=== PATIENT | male | born 1950 | race Caucasian/White ===

== ENCOUNTER 2016-07-26 00:01 | Outpatient (RCR) ==
[2016-06-23 13:09] VITALS: BMI 26.9
== END 2016-08-25 ==
LOC: CAR.REHAB 00:01
PROVIDERS: ATTEND Internal Medicine
DX: I25.10 Atherosclerotic heart disease of native coronary artery without angina pectoris (principal); I10 Essential (primary) hypertension; Z95.5 Presence of coronary angioplasty implant and graft

== ENCOUNTER 2016-08-26 06:37 | Outpatient (RCR) ==
[2016-06-23 13:09] VITALS: BMI 26.9
== END 2016-09-09 15:44 | disposition home or self-care (01) ==
LOC: CAR.REHAB 06:37
PROVIDERS: ATTEND Internal Medicine
DX: I25.10 Atherosclerotic heart disease of native coronary artery without angina pectoris (principal); Z95.5 Presence of coronary angioplasty implant and graft

== ENCOUNTER 2017-06-29 12:40 | Outpatient (CLI) ==
[2016-06-23 13:09] VITALS: BMI 26.9
[2017-06-29 13:37] LABS: BASOPHILS # (AUTO) 0.1 K/uL (0-0.2); BASOPHILS % (AUTO) 0.6 % (0.0-3.0); EOSINOPHILS # (AUTO) 0.1 K/ul (0.0-0.7); EOSINOPHILS % (AUTO) 0.9 % (0.0-7.0); HEMATOCRIT 47.7 % (42.0-52.0); HEMOGLOBIN 17.5 g/dl (14.0-18.0); LYMPHOCYTES # (AUTO) 1.1 K/uL (0.60-3.4); LYMPHOCYTES % (AUTO) 10.1 (10.0-50.0); MEAN CORPUSCULAR HEMOGLOBIN 36.2 pg (27.0-31.0); MEAN CORPUSCULAR HGB CONC 36.7 (31.8-35.4); MEAN CORPUSCULAR VOLUME 98.6 fl (80.0-94.0); MONOCYTES # (AUTO) 0.9 K/uL (0.4-2.0); MONOCYTES % (AUTO) 8.5 (0-10); NEUTROPHILS # (AUTO) 8.5 K/ul (2.0-6.9); NEUTROPHILS % (AUTO) 78.9; PLATELET COUNT 220 10^3/uL (140-440); RED BLOOD COUNT 4.84 10^6/ul (4.70-6.10); WHITE BLOOD COUNT 10.76 K/ul (4.2-10.2)
[2017-06-29 13:38] LABS: BILIRUBIN,URINE Negative (NEGATIVE); KETONES,URINE Negative (NEGATIVE); LEUKOCYTE ESTERASE ,URINE Negative (NEGATIVE); NITRITE,URINE Negative (NEGATIVE); PH,URINE 6.5 (5-9); PROTEIN,URINE Trace (NEGATIVE); URINE, BLOOD Trace-lysed (NEGATIVE)
[2017-06-29 13:40] LABS: ADD URINE MICROSCOPIC YES
[2017-06-29 14:56] LABS: ANION GAP 16.1; BUN/CREATININE RATIO 10.6; CALCIUM 9.8 mg/dL (8.2-10.2); CREATININE 0.66 mg/dL (0.60-1.10); POTASSIUM 4.1 mmol/L (3.5-5.1)
== END 2017-06-29 12:41 | disposition home or self-care (01) ==
LOC: LAB 12:40
PROVIDERS: ATTEND Internal Medicine
DX: I25.10 Atherosclerotic heart disease of native coronary artery without angina pectoris (principal); C61 Malignant neoplasm of prostate; E88.81 Metabolic syndrome and other insulin resistance
CPT/HCPCS: 36415; 80048; 81001; 85025; 86850; 86900

== ENCOUNTER 2017-12-30 06:40 | Outpatient (CLI) ==
[2016-06-23 13:09] VITALS: BMI 26.9
--- NOTE | 2017-12-30 10:32 | ECHO2D ---
Date of Exam: 12/30/17 Ordering Physician: DR. NICKY SAALZAR Room #: OP Reason for Echo: CAD WITH STENT, HTN, SOB M-Mode Normal Adult Results LV Dimensions Normal Adult Results AoV Opening excursions >1.6 >1.6 LVEDD-base- 3.5-5.8 4.9 Ao root dimensions 2.0-3.7 3.4 LVESD-base- 3.1-4.6 L. Atrium dimensions 1.9-3.8 4.7 Post. Wall thickness 0.8-1.1 1.1 IV septum (thickness) 0.7-1.2 1.1 Post. Wall excursion 0.72-1.3 NORMAL Septal motion 0.6 Systolic motion R. Ventricular cavity 1.5-2.0 NORMAL LVEF 60% 48% Paradoxical septal wall motion NORMAL 2-D : HYPOKINETIC SEPTUM--CALCIFIC AORTIC VALVES, OTHER VALVES NORMAL, NO EFFUSION, NO THROMBUS, NORMAL LEFT VENTRICLE SIZE, ENLARGED LEFT ATRIAL SIZE M-MODE: MV: NORMAL AV: CALCIFIC AORTIC VALVES TV: NORMAL PV: CHAMBER SIZE: ENLARGED LEFT ATRIAL CAVITY WALL MOTION: HYPOKINETIC SEPTUM PERICARDIUM: NORMAL INTERPRETATION: 1. HYPOKINETIC SEPTUM (MILD) LEFT VENTRICULAR EJECTION FRACTION 48% 2. CALCIFIC AORTIC VALVES 3. ENLARGED LEFT ATRIAL CAVITY MTDD
--- NOTE | 2017-12-30 11:01 | STRESSECHO ---
Date of Test: 12/30/17 Ordering Physician: DR. 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 Height: 68" Weight: 179" Current Medications: COZAAR, ALLOPURINOL, LEVOTHYROXINE, METOPROLOL, NG, SIMVASTATIN, KLONOPIN, CYMBALTA, LEXAPRO, XANAX Physical Findings: S1, S2, NO S3 Resting EKG: SINUS RHYTHM/ POOR R WAVE PROGRESSION Target Heart Rate: 130 /153 S-T SEGMENT STAGE MPH/GRADE HEART RATE BPM BLOOD PRESSURE MMHG RHYTHM +/- ELEVATION DEPRESSION SYMPTOMS,COMMENTS AT REST 70 146/86 SR X NONE 1 1.7/10% 104 140/58 SR X NONE 2 2.5/12% 130 150/70 SR X NONE 3 3.4/14% 4 4.2/16% 5 5.0/18% Immediately After 140 160/80 SR X NONE Minutes Post Exercise 4:00 78 140/80 SR X NO COMMENTS Minutes Post Exercise DURATION OF EXERCISE: 6:40 MAXIMUM HEART RATE REACHED: 140 BPM REASON FOR TERMINATION: FATIGUE 96% OXYGEN SATURATION WITH EXERCISE ON ROOM AIR METS: 9.0 INTERPRETATION: 1. NO EVIDENCE OF ISCHEMIA BY ST-T WAVE 2. NO CHEST PAIN OR DISCOMFORT 3. FEW ISOLATED PVC'S WITH EXERCISE 4. BLOOD PRESSURE RESPONSE: NORMAL MILD HYPOKINETIC SEPTUM WITH IMPROVED CONTRACTILITY WITH EXERCISE MTDD
--- NOTE | 2017-12-30 11:04 | ECHOSTRESS ---
Date of Exam: 12/30/17 Ordering Physician: DR. NICKY SALAZAR Reason for Echo: CAD WITH STENT, SOB, STRESS TEST--NO ISCHEMIA M-Mode Normal Adult Results LV Dimensions Normal Adult Results AoV Opening excursions >1.6 LVEDD-base- 3.5-5.8 Ao root dimensions 2.0-3.7 LVESD-base- 3.1-4.6 L. Atrium dimensions 1.9-3.8 Post. Wall thickness 0.8-1.1 IV septum (thickness) 0.7-1.2 Post. Wall excursion 0.72-1.3 Septal motion Systolic motion R. Ventricular cavity 1.5-2.0 LVEF 60% Paradoxical septal wall motion 2-D: MILDLY HYPOKINETIC SEPTUM AT REST AND WITH IMPROVED LEFT VENTRICULAR CONTRACTILITY WITH EXERCISE M-MODE: MV: AV: TV: PV: CHAMBER SIZE: WALL MOTION: MILDLY HYPOKINETIC SEPTUM AT REST AND WITH IMPROVED LEFT VENTRICULAR CONTRACTILITY WITH EXERCISE PERICARDIUM: INTERPRETATION: 1. MILDLY HYPOKINETIC SEPTUM AT REST AND WITH IMPROVED LEFT VENTRICULAR CONTRACTILITY WITH EXERCISE MTDD
== END 2017-12-30 06:41 | disposition home or self-care (01) ==
LOC: CAR 06:40
PROVIDERS: ATTEND Internal Medicine
DX: I25.10 Atherosclerotic heart disease of native coronary artery without angina pectoris (principal); R06.02 Shortness of breath; I10 Essential (primary) hypertension; Z95.5 Presence of coronary angioplasty implant and graft

== ENCOUNTER 2018-03-22 14:49 | Emergency (ER) ==
[2018-03-22 14:55] VITALS: BP 167/98; TEMP 98.2; BMI 28.0
--- NOTE | 2018-03-22 15:39 | ED.PDOC ---
General ED Provider: Dr. HALEY TURNER Chief Complaint: Neck Pain Non-Injury Stated Complaint: Neck hurts/sharp jabbing pain up posterior lt cervical region into base of skull. Occurs with movement of cervical spine and does not experience pain into Lt Shoulder or upper extremity. Denies Chest Pain or discomfort/Denies SOB Time Seen by Physician: 15:05 Mode of Arrival: Walk-In Information Source: Patient Exam Limitations: No limitations Primary Care Provider: NICKY SALAZAR Referred to ED by: PCP Nursing and Triage Documentation Reviewed and Agree: Yes Does patient meet sepsis criteria?: No System Inflammatory Response Syndrome: Not Applicable Sepsis Protocol: For patient's 13 years and over: Temp is 96.8 and below OR 101 and greater Pulse >90 BPM Resp >20/minute Acutely Altered Mental Status Are patient's symptoms suggestive of a new infection, such as: -Pneumonia -Skin, Soft Tissue -Endocarditis -UTI -Bone, Joint Infection -Implantable Device -Acute Abdominal Infection -Wound Infection -Meningitis -Blood Stream Catheter Infection -Unknown Musculoskeletal Complaint Exam - Neck Pain Complaint/Exam Mechanism of Injury: Reports: No known trauma (None recently) Review of Systems - Review Of Systems Constitutional: Reports: No symptoms Eyes: Reports: No symptoms Ears, Nose, Mouth, Throat: Reports: No symptoms Respiratory: Reports: No symptoms Cardiac: Reports: No symptoms GI: Reports: No symptoms : Reports: No symptoms Musculoskeletal: Reports: No symptoms, Neck pain Skin: Reports: No symptoms Neurological: Reports: No symptoms Endocrine: Reports: No symptoms Hematologic/Lymphatic: Reports: No symptoms All Other Systems: Reviewed and Negative Past Medical History - Past Medical History Endocrine: Reports: DM 2 Cardiovascular: Reports: CAD, Hypertension, CHF Respiratory: Reports: None, Other Hematological: Reports: None Gastrointestinal: Reports: None Genitourinary: Reports: None Neuro/Psych: Reports: None Musculoskeletal: Reports: Arthritis, Joint Pain Cancer: Reports: None - Surgical History General Surgical History: Reports: None - Family History Family History: Reports: None - Social History Smoking Status: Current some day smoker Alcohol Screening: None Physical Exam - Physical Exam Appearance: Well-appearing, No pain distress, Well-nourished Eyes: RAÚL, EOMI, Conjunctiva clear ENT: Ears normal, Nose normal, Oropharynx normal Respiratory: Airway patent, Breath sounds clear, Breath sounds equal, Respirations nonlabored Cardiovascular: RRR, Pulses normal, No rub, No murmur GI/: Soft, Nontender, No masses, Bowel sounds normal, No Organomegaly Musculoskeletal: Normal strength, ROM intact, No edema, No calf tenderness, Limited ROM (cervical tenderness lt occipital cervical region with increase discomfort to lt rotation ) Skin: Warm, Dry, Normal color Neurological: Sensation intact, Motor intact, Reflexes intact, Cranial nerves intact, Alert, Oriented Psychiatric: Affect appropriate, Mood appropriate Interpretation - Radiology Interpretation Radiology Interpretation By: Radiologist (Findings reviewed-advanced degenerative arthritis/foraminal stenosis) Exam Interpreted: CT Scan Physician Notification - Case Discussed Physician Notified: Dr Salazar-Reviewed case Time of Notification: 16:50 (Recommended IM Decadron 4 mg IM/outpatient follow up 1 wk) Critical Care Note - Critical Care Note Total Time (mins): 0 Course - Course Hematology/Chemistry: 03/22/18 15:47 03/22/18 15:47 Orders, Labs, Meds: Lab Review 03/22/18 03/22/18 15:47 15:47 WBC 10.17 RBC 3.93 L Hgb 14.2 Hct 39.0 L MCV 99.2 H MCH 36.1 H MCHC 36.4 H RDW Coeff of Audrey 12.7 Plt Count 187 Immature Gran % (Auto) 0.4 Neut % (Auto) 71.9 Lymph % (Auto) 18.0 Gregory % (Auto) 7.2 Eos % (Auto) 2.1 Baso % (Auto) 0.4 Immature Gran # (Auto) 0.0 Neut # (Auto) 7.3 H Lymph # (Auto) 1.8 Gregory # (Auto) 0.7 Eos # (Auto) 0.2 Baso # (Auto) 0.0 ESR 6 Sodium 131 L Potassium 3.8 Chloride 99 Carbon Dioxide 27 Anion Gap 8.8 BUN 17 Creatinine 0.65 Estimated GFR (MDRD) 123.00 BUN/Creatinine Ratio 26.15 Glucose 122 H Calcium 9.4 Total Bilirubin 0.7 AST 36 ALT 35 Alkaline Phosphatase 72 Total Creatine Kinase 52 Troponin I < 0.0100 Total Protein 6.3 Albumin 3.6 Globulin 2.7 Albumin/Globulin Ratio 1.33 Orders Category Date Time Status EKG-(ED ONLY) Stat CARDIO 03/22/18 15:37 Completed CBC W/ AUTO DIFF Stat LAB 03/22/18 15:47 Completed CMP [COMPREHENSIVE METABOLIC PANEL] Stat LAB 03/22/18 15:47 Completed CPK [CREATINE KINASE] Stat LAB 03/22/18 15:47 Completed ESR Stat LAB 03/22/18 15:47 Completed TROPONIN I Stat LAB 03/22/18 15:47 Completed Dexamethasone 4 mg/ml Inj [Decadron 4 mg/ml Sdv] MEDS 03/22/18 17:01 Stat 4 mg IM ONCE STA CT CERVICAL SPINE W/O CONTRAST Stat RADS 03/22/18 15:38 Completed Medications Discontinued Medications Generic Name Dose Route Start Last Admin Trade Name [place] PRN Reason Stop Dose Admin Dexamethasone Sodium Phosphate 4 mg 03/22/18 17:01 Decadron 4 Mg/Ml Sdv IM 03/22/18 17:02 ONCE STA Vital Signs: Temp Pulse Resp BP Pulse Ox 03/22/18 14:51 98.2 F 87 18 167/98 H 98 Departure - Departure Time of Disposition: 17:00 Disposition: HOME SELF-CARE Discharge Problem: Cervicalgia of [id number]-lguswbs-trzmo region, Degenerative arthritis of cervical spine, Hyponatremia Instructions: Neck Pain (ED), Cervical Spinal Stenosis (ED), Cervical Strain ( DC), Hyponatremia (ED), Exercise Safety (ED) Condition: Good Pt referred to PMD for follow-up: Yes IPMP verified?: No Additional Instructions: May take Ibuprofen 200 mg 1-3 tablets daily for relief of pain Ice pack to area of discomfort Follow up pcp Allergies/Adverse Reactions: Allergies No Known Allergies Allergy (Verified 03/22/18 14:55) Home Medications: Ambulatory Orders Allopurinol 400 mg PO DAILY 06/23/16 Aspirin [Aspirin EC] 81 mg PO DAILYWM 06/23/16 Levothyroxine Sodium [Synthroid] 50 mcg PO DAILY 06/23/16 Nitroglycerin 1 tab SL PRN PRN 06/23/16 Simvastatin 40 mg PO DAILY 06/23/16 Losartan Potassium [Cozaar] 50 mg PO DAILY #30 tablet 06/26/16 Disposition Discussed With: Patient
--- NOTE | 2018-03-22 16:41 | CT ---
EXAM: Cervical spine CT without contrast TECHNIQUE: Helical axial CT of the cervical spine was performed without contrast with coronal and sa gittal reconstructions. COMPARISON: None HISTORY: Neck pain FINDINGS: There is no acute fracture, compression or subluxation. Alignment is anatomic. There is no acute soft tissue abnormality. There is chronic fragmentation and sclerosis seen involving the later al mass of C2 on the left along with advanced degenerative change of the joint space between C1 and C 2 on the left as well. This is probably on the basis of old trauma. There is advanced calcific ather osclerosis. C1-2: Old trauma involving the left aspect of C2 as described above. The dens is intact as well as th e anterior and posterior arches of C1. C2-3: There is a grade 1 degenerative anterolisthesis with facet and ligamentous and uncovertebral hy pertrophy. Canal stenosis: None C3 neural foraminal stenosis: Mild right, moderate left C3-4: There is disc space narrowing and a broad-based calcified disc osteophyte complex with advanced facet and ligamentous and uncovertebral hypertrophy. Canal stenosis: Mild C4 neural foraminal stenosis: Severe right, moderate left C4-5: There is extremely advanced disc space narrowing with endplate degenerative changes and anterio r osteophytosis with a broad-based calcified disc osteophyte complex with advanced facet and ligament ous and uncovertebral hypertrophy. Canal stenosis: Moderate C5 neural foraminal stenosis: Moderate right, severe left C5-6: There is advanced disc space narrowing with some anterior osteophytosis and a broad-based calci fied disc osteophyte complex with facet and ligamentous and uncovertebral hypertrophy. Canal stenosis: Mild C6 neural foraminal stenosis: Moderate bilateral C6-7: There is very advanced disc space narrowing and advanced endplate degenerative changes with ant erior osteophytosis and a broad-based calcified disc osteophyte complex with facet and ligamentous an d uncovertebral hypertrophy. Canal stenosis: Severe C7 neural foraminal stenosis: Moderate right, severe left C7-T1: There is uncovertebral and facet hypertrophy and some disc space narrowing Canal stenosis: None C8 neural foraminal stenosis: None IMPRESSION: 1. Chronic fragmentation and hypoplasia and sclerosis seen involving the lateral mass of C2 on the le ft probably due to old trauma. 2. Extremely advanced multilevel degenerative changes as detailed above probably most severe at C6-7 where there is resulting severe spinal stenosis and severe left C7 foraminal stenosis. 3. Other degenerative changes as detailed above. No acute abnormality is observed in the cervical s pine.
[2018-03-22] MEDS ORDERED: DECADRON 4 MG/ML SDV IM STA (17:01)
== END 2018-03-22 17:13 | disposition home or self-care (01) ==
LOC: ED 14:49
DX: M54.2 Cervicalgia (principal); M47.812 Spondylosis without myelopathy or radiculopathy, cervical region; E87.1 Hypo-osmolality and hyponatremia; E11.9 Type 2 diabetes mellitus without complications; I10 Essential (primary) hypertension; I25.10 Atherosclerotic heart disease of native coronary artery without angina pectoris; Z79.899 Other long term (current) drug therapy; F17.210 Nicotine dependence, cigarettes, uncomplicated
CPT/HCPCS: 36415; 80053; 82550; 84484; 85025; 85651; 93005; 93010; 96372; 99283

== ENCOUNTER 2018-03-30 07:49 | Outpatient (CLI) ==
--- NOTE | 2018-03-30 12:19 | MRI ---
EXAM: MRI cervical spine without IV contrast. DATE: March 2018. HISTORY: Neck pain. Cervical spinal stenosis. TECHNIQUE: Sagittal and axial T1W and T2W sequences of the cervical spine along with sagittal IR and coronal T2W sequences were obtained using 1.2 Queenie magnet. No IV contrast. COMPARISON: CT C-spine 22 March 2018. FINDINGS: Mild leftward curvature of the cervical spine is observed. A 2.2 mm anterior subluxation of C7 relative to C6 and T1 is observed. A 1 mm anterior subluxation of T3 relative to T2 is also no karel. No other subluxation, acute fracture, distinct malignancy, or jumped facet is apparent. Minor anterior wedge configuration of the C-spine and C6 vertebra is chronic. Prominent osteophytes are ob served at C4-5 and C6-7, with smaller osteophytes at C3-4 and C5-6. Mild C3-4, marked C4-5, moderate C5-6, marked C6-7, mild C7-T1, and marked T2-3 disc space narrowing is detected. T2W/IR bright, T1W heterogeneously bright signal in the odontoid appears benign. Extensive modic type one degenerative endplate changes are observed at C4-5. Prominent geode with heterogeneous signal is observed in the C7 superior endplate. Cervical spinal cord is flattened at multiple levels. No syrinx, cord edema, myelomalacia, or neoplasm is identified. Visible brainstem is unremarkable. There is no Chiari 1 malformation. No acute sinusitis is detecte d. No mastoid disease detected. No thyroid, submandibular, or parotid gland neoplasm is demonstrate d. Trachea, larynx, and epiglottis are normal. No suspicious neck mass, cervical lymphadenopathy, a pical lung mass, pneumonia, or pleural effusion is demonstrated. Segmental analysis: C1-2: Marrow edema and posterior erosive changes are present in the odontoid. Soft tissue thickenin g (6.5 mm) posterior to the odontoid is likely related to C1-2 arthritis, and causes borderline centr al canal stenosis. C3-4: Small posterior disc/osteophyte complex (1.6 mm AP) does not contact the cord. Canal is 10.6 mm AP. Mild right and moderate left foraminal stenoses are due to uncinate hypertrophy, moderate rig ht facet arthropathy, and mild left facet arthropathy. C4-5: Broad posterior disc/osteophyte complex (2.8 mm AP) flattens the cord anteriorly. Ligamentum flavum hypertrophy is present. Canal is 7 mm AP. Severe right and moderate/marked left foraminal st enoses due to uncinate hypertrophy, moderate/marked right facet arthropathy, and moderate left facet arthropathy. There are tiny bilateral facet effusions. Erosive changes are present in the right fac et. C5-6: Broad posterior disc/osteophyte complex (2.6 mm AP) touches the cord anteriorly. There is mod erate ligamentum flavum hypertrophy. Canal is 9 mm AP. Mild bilateral foraminal stenoses due to unc inate hypertrophy and minor facet arthropathy. C6-7: Minor anterior subluxation of C7 and broad posterior disc/osteophyte complex (3.1 mm AP) cause anterior cord flattening. There is moderate ligamentum flavum hypertrophy. Canal is 7.8 mm AP. Ma rked bilateral foraminal stenoses due to uncinate hypertrophy and mild facet arthropathy. C7-T1: Minor anterior subluxation of C7 and broad posterior disc/osteophyte complex (2.2 mm AP) do n ot cause cord compression. Canal is 9.4 mm AP. Mild right foraminal stenosis is due to uncinate hyp ertrophy. T1-2: Sagittal images reveal small posterior disc/osteophyte complex without cord compression. Diana l is 9.9 mm AP. Minor left foraminal narrowing is due to facet arthropathy. T2-3: Sagittal images reveal broad posterior disc bulge (2.6 mm AP) flattening the cord anteriorly. There is mild ligamentum flavum hypertrophy. Canal is 8.2 mm AP. Mild/moderate right and mild left foraminal stenoses due to uncinate hypertrophy and facet arthropathy. IMPRESSIONS: 1. C-spine moderate spondylosis, mild levoscoliosis, multilevel facet arthropathy, minor subluxation s, and multilevel DDD as described. Consider erosive osteoarthritis and C1-2. 2. Multilevel central canal stenoses (C1-2: Marked. C4-5: Moderate/marked. C5-6: Mild. C6-7: Mode rate. C7-T1: Mild. T1-2: Mild. T2-3: Mild). 3. Multilevel cervical cord flattening. No syrinx or myelomalacia. 4. Multilevel cervical foraminal stenoses (omer. right C4-5, bilateral C5-6, bilateral C6-7). 5. Mild adenoid hypertrophy appears benign.
== END 2018-03-30 07:50 | disposition home or self-care (01) ==
LOC: RAD 07:49
PROVIDERS: ATTEND Internal Medicine
DX: M54.2 Cervicalgia (principal); M48.02 Spinal stenosis, cervical region

== ENCOUNTER 2018-04-27 12:31 | Outpatient (CLI) ==
--- NOTE | 2018-04-27 15:38 | US ---
EXAM: Bilateral carotid artery Doppler. History: Dizziness. Technique: Multiple sonographic images through the bilateral internal carotid arteries were obtained . Color duplex Doppler was used to interrogate vascular flow. Findings: The right ICA peak systolic velocity is within normal limits measuring 0.9 meters per second. The ri ght ICA/cca PSV ratio is normal at 1.0. The right vertebral artery is patent and demonstrates antegr damaso flow. Galloway scale images demonstrate mild to moderate plaque buildup within the right internal ca rotid artery. The left ICA peak systolic velocity is within normal limits measuring 0.9 meters per second. The lef t ICA/cca PSV ratio is normal at 0.90. The left vertebral artery is patent and demonstrates antegrad e flow. Galloway scale images demonstrate moderate shadowing plaque buildup within the left internal car otid artery which does limit evaluation. Impression: 1. The velocities and ratios indicate no significant hemodynamic stenosis of the bilateral internal carotid arteries. 2. Moderate plaque buildup within the left internal carotid artery left carotid bulb does limit eval uation. Consider correlation with CTA of the neck for clarification.
== END 2018-04-27 12:32 | disposition home or self-care (01) ==
LOC: RAD 12:31
PROVIDERS: ATTEND Internal Medicine
DX: R26.89 Other abnormalities of gait and mobility (principal); R42 Dizziness and giddiness

== ENCOUNTER 2018-05-05 07:48 | Outpatient (CLI) ==
--- NOTE | 2018-05-05 09:58 | CT ---
EXAM: CTA of the neck with and without contrast History: Abnormal carotid ultrasound Comparison: Carotid Doppler 04/27/2018 Technique: Multiplanar CT images through the soft tissue neck were obtained with and without the admi nistration of IV contrast. MIP images and 3-D reconstructions were also provided. Findings: The visualized upper lungs are free of consolidation. No acute osseous abnormalities. Mo derate to severe degenerative disc disease within the cervical spine. Epiglottis is not thickened. The visualized paranasal sinuses and mastoid air cells are clear in general. Surrounding soft tissue s demonstrate no acute findings. The bilateral common carotid arteries are patent without significant disease. The bilateral vertebra l arteries are patent without significant disease. There is mild to moderate calcific plaque buildup at the bifurcation of the left internal carotid artery with about 40% narrowing of the proximal left internal carotid artery. On the right there is about 50% narrowing of the proximal right internal c arotid artery with poststenotic dilatation but no significant calcific plaque buildup.. Impression: 1. 40% narrowing of the proximal left internal carotid artery 2. 50% narrowing of the proximal right internal carotid artery with poststenotic dilatation. 3. Moderate to severe degenerative disc disease within the cervical spine.
== END 2018-05-05 07:49 | disposition home or self-care (01) ==
LOC: RAD 07:48
PROVIDERS: ATTEND Internal Medicine
DX: R93.1 Abnormal findings on diagnostic imaging of heart and coronary circulation (principal)

== ENCOUNTER 2019-12-26 12:46 | Inpatient (IN) ==
[2019-12-26 13:32] VITALS: BMI 26.8
[2019-12-29 05:39] VITALS: BP 163/84; TEMP 97.9
== END 2019-12-29 11:25 | disposition home or self-care (01) | DRG 641 ==
LOC: MEDSURG A 12:46
PROVIDERS: ADMIT Internal Medicine; ATTEND Internal Medicine

== ENCOUNTER 2020-06-28 09:03 | Inpatient (IN) ==
[2020-06-28] MEDS ORDERED: SODIUM CHLORIDE 500 ML IV STA (09:23)
[2020-06-28] MEDS ORDERED: TYLENOL PO STA (09:23)
[2020-06-28] MEDS ORDERED: SODIUM CHLORIDE 1,000 ML IV STA (09:23)
--- NOTE | 2020-06-28 09:54 | ED.PDOC ---
General ED Provider: Dr. KEV GRADY MD Chief Complaint: Fall Stated Complaint: mild posterior neck pain x this am. pt fell and hit the head and neck. was on the floor x 10hrs. denied LOC Time Seen by Physician: 09:13 Mode of Arrival: Ambulance Information Source: Patient Primary Care Provider: NICKY SALAZAR Nursing and Triage Documentation Reviewed and Agree: Yes Does patient meet sepsis criteria?: No System Inflammatory Response Syndrome: Not Applicable Sepsis Protocol: For patient's 13 years and over: Temp is 96.8 and below OR 101 and greater Pulse >90 BPM Resp >20/minute Acutely Altered Mental Status Are patient's symptoms suggestive of a new infection, such as: -Pneumonia -Skin, Soft Tissue -Endocarditis -UTI -Bone, Joint Infection -Implantable Device -Acute Abdominal Infection -Wound Infection -Meningitis -Blood Stream Catheter Infection -Unknown Trauma/Injury Complaint Exam Trauma Complaint/Exam Location of Pain or Injury: Reports Head and Neck Mechanism of Injury: Reports Fall Onset/Duration: last PM Timing of Treatment: Delayed Initial Severity: Mild Current Severity: Mild Character: Reports Dull and Aching Aggravating: Reports Movement Alleviating: Reports Rest Associated Signs and Symptoms: Denies LOC, Confusion, Memory loss, Lethargy, Vomiting, Bleeding, Bruising, Swelling, Extremity disuse, Painful respiration, Hoarseness, Dysphagia, Hemoptysis and Significant blood loss Nexus Low Risk Criteria: No evidence of intoxicat., No Altered LOC, No focal neuro deficit and No distracting injuries Glascow Coma Scale (see protocol): 15 Compartment Syndrome Risk Factors: Absent Pain Trauma Findings: Present Neck tenderness Skin Findings: Present Normal findings Differential Diagnoses: Abrasion and Contusions Review of Systems Review Of Systems Constitutional: Reports No symptoms Eyes: Reports Foreign body sensation Ears, Nose, Mouth, Throat: Reports No symptoms Respiratory: Reports No symptoms Cardiac: Reports No symptoms GI: Reports No symptoms : Reports No symptoms Endocrine: Reports No symptoms Hematologic/Lymphatic: Reports No symptoms All Other Systems: Reviewed and Negative [facility] Medical History Hypertension Myocardial infarction Family History Mother Congestive heart failure FATHER CVA (cerebral vascular accident) SISTER Hypertension Social History Smoking and tobacco status: Current some day smoker History of recent travel: Yes (in the states) Surgical History History of hernia surgery History of left knee replacement History of prostatectomy History of quadruple bypass Physical Exam Physical Exam Appearance: Reports Well-appearing, No pain distress and Obese Pain Distress: None Eyes: Reports RAÚL, EOMI and Conjunctiva clear ENT: Reports Ears normal, Nose normal and Oropharynx normal Neck: Supple Respiratory: Reports Airway patent and Breath sounds clear Cardiovascular: Reports RRR, Pulses normal, No rub and No murmur GI/: Reports Soft, Nontender, No masses, Bowel sounds normal and No Organomegaly Musculoskeletal: Reports Normal strength, ROM intact, No edema and No calf tenderness Skin: Reports Warm, Dry and Normal color Neurological: Reports Sensation intact, Motor intact, Reflexes intact, Cranial nerves intact, Alert and Oriented Psychiatric: Reports Affect appropriate and Mood appropriate Interpretation EKG Interpretation Time of EKG #1: 09:33 Rate: Normal Rhythm: Sinus Ectopy: PACs [place]: NL ST Segment: Normal Interpretation: 95/min. sinus with PACs. no acute ST or T wave changes. Re-Evaluation Re-Evaluation Time of Re-Evaluation: 10:22 Status: Improved Vital Signs Stable: Yes Pain Level: 1 Appearance: NAD Lungs: Clear Skin: Warm and Dry Neuro: Alert and Oriented X3 CV: RRR Critical Care Note Critical Care Note Total Critical Care Time (mins): 0 Course Course Hematology/Chemistry: 06/28/20 09:45 06/28/20 09:45 Orders, Labs, Meds: Lab Review 06/28/20 06/28/20 06/28/20 09:45 09:45 09:45 WBC 31.50 H RBC 3.90 L Hgb 14.1 Hct 38.1 L MCV 97.7 H MCH 36.2 H MCHC 37.0 H RDW Coeff of Audrey 13.5 Plt Count 165 Immature Gran % (Auto) 1.5 Neut % (Auto) 92.7 H Lymph % (Auto) 2.4 L [place] % (Auto) 3.3 Eos % (Auto) 0.0 Baso % (Auto) 0.1 Neut # (Auto) 29.2 H Lymph # (Auto) 0.8 [place] # (Auto) 1.1 Eos # (Auto) 0.0 Baso # (Auto) 0.0 Immature Gran # (Auto) 0.2 Puncture Site O2 Saturation ABG pH ABG pCO2 ABG pO2 ABG HCO3 ABG Total CO2 ABG Base Excess Pranav Test FiO2 % Sodium 118.9 L* Potassium 4.30 Chloride 81.5 L Carbon Dioxide 28.2 Anion Gap 13.50 BUN 12.0 Creatinine 0.67 Estimated GFR (MDRD) 117.00 BUN/Creatinine Ratio 17.91 Glucose 93.0 Calcium 8.85 Ferritin Total Bilirubin 0.83 AST 59.6 H ALT 41.3 Alkaline Phosphatase 121.3 H Total Creatine Kinase 393.9 H CK-MB (CK-2) 6.460 H* CK-MB (CK-2) % 1.6400 Troponin I < 0.012 Total Protein 6.63 Albumin 3.63 Globulin 3.00 Albumin/Globulin Ratio 1.21 Procalcitonin 6.76 Adenovirus (PCR) B. pertussis DNA (PCR) B.parapertussis DNA PCR C. pneumoniae DNA (PCR) Coronavirus OC43 (PCR) Coronavirus HKU1 (PCR) Coronavirus 229E (PCR) Coronavirus NL63 (PCR) Human Metapneumovir PCR Influenza Type A (PCR) Influenza B (RT-PCR) M. pneumoniae (PCR) Parainfluenza 1 (PCR) Parainfluenza 2 (PCR) Parainfluenza 3 (PCR) Parainfluenza 4 (PCR) RSV (PCR) Entero/Rhino (PCR) SARS-CoV-2 (PCR) 06/28/20 06/28/20 06/28/20 09:45 11:15 11:45 WBC RBC Hgb Hct MCV MCH MCHC RDW Coeff of Audrey Plt Count Immature Gran % (Auto) Neut % (Auto) Lymph % (Auto) [place] % (Auto) Eos % (Auto) Baso % (Auto) Neut # (Auto) Lymph # (Auto) [place] # (Auto) Eos # (Auto) Baso # (Auto) Immature Gran # (Auto) Puncture Site R brachial O2 Saturation 97.3 ABG pH 7.57 H* ABG pCO2 25.0 L ABG pO2 80.0 L ABG HCO3 22.9 ABG Total CO2 23.7 ABG Base Excess 0.9 Pranav Test + FiO2 % 21.0 Sodium Potassium Chloride Carbon Dioxide Anion Gap BUN Creatinine Estimated GFR (MDRD) BUN/Creatinine Ratio Glucose Calcium Ferritin 548.00 H Total Bilirubin AST ALT Alkaline Phosphatase Total Creatine Kinase CK-MB (CK-2) CK-MB (CK-2) % Troponin I Total Protein Albumin Globulin Albumin/Globulin Ratio Procalcitonin Adenovirus (PCR) Not detected B. pertussis DNA (PCR) Not detected B.parapertussis DNA PCR Not detected C. pneumoniae DNA (PCR) Not detected Coronavirus OC43 (PCR) Not detected Coronavirus HKU1 (PCR) Not detected Coronavirus 229E (PCR) Not detected Coronavirus NL63 (PCR) Not detected Human Metapneumovir PCR Not detected Influenza Type A (PCR) Not detected Influenza B (RT-PCR) Not detected M. pneumoniae (PCR) Not detected Parainfluenza 1 (PCR) Not detected Parainfluenza 2 (PCR) Not detected Parainfluenza 3 (PCR) Not detected Parainfluenza 4 (PCR) Not detected RSV (PCR) Not detected Entero/Rhino (PCR) Not detected SARS-CoV-2 (PCR) Not detected 06/28/20 14:45 WBC RBC Hgb Hct MCV MCH MCHC RDW Coeff of Audrey Plt Count Immature Gran % (Auto) Neut % (Auto) Lymph % (Auto) [place] % (Auto) Eos % (Auto) Baso % (Auto) Neut # (Auto) Lymph # (Auto) [place] # (Auto) Eos # (Auto) Baso # (Auto) Immature Gran # (Auto) Puncture Site O2 Saturation ABG pH ABG pCO2 ABG pO2 ABG HCO3 ABG Total CO2 ABG Base Excess Pranav Test FiO2 % Sodium Potassium Chloride Carbon Dioxide Anion Gap BUN Creatinine Estimated GFR (MDRD) BUN/Creatinine Ratio Glucose Calcium Ferritin Total Bilirubin AST ALT Alkaline Phosphatase Total Creatine Kinase CK-MB (CK-2) CK-MB (CK-2) % Troponin I Total Protein Albumin Globulin Albumin/Globulin Ratio Procalcitonin Adenovirus (PCR) Not detected B. pertussis DNA (PCR) Not detected B.parapertussis DNA PCR Not detected C. pneumoniae DNA (PCR) Not detected Coronavirus OC43 (PCR) Not detected Coronavirus HKU1 (PCR) Not detected Coronavirus 229E (PCR) Not detected Coronavirus NL63 (PCR) Not detected Human Metapneumovir PCR Not detected Influenza Type A (PCR) Not detected Influenza B (RT-PCR) Not detected M. pneumoniae (PCR) Not detected Parainfluenza 1 (PCR) Not detected Parainfluenza 2 (PCR) Not detected Parainfluenza 3 (PCR) Not detected Parainfluenza 4 (PCR) Not detected RSV (PCR) Not detected Entero/Rhino (PCR) Not detected SARS-CoV-2 (PCR) Not detected Orders Category Date Time Status ABG DRAW REQUEST Stat CARDIO 06/28/20 11:18 Completed EKG-(ED ONLY) Stat CARDIO 06/28/20 09:23 Completed METERED DOSE INHALATION Routine CARDIO 06/28/20 12:59 Completed ED IV/MEDIPORT/POWERPORT .ONCE EMERGENCY 06/28/20 09:23 Active ABG Stat LAB 06/28/20 11:15 Completed BLOOD CULTURE (ED ONLY) Stat LAB 06/28/20 11:45 Received C-REACTIVE PROTEIN Stat LAB 06/28/20 09:45 Received CBC W/ AUTO DIFF Stat LAB 06/28/20 09:45 Completed COMPREHENSIVE METABOLIC PANEL Stat LAB 06/28/20 09:45 Completed CREATINE KINASE Stat LAB 06/28/20 09:45 Completed FERRITIN Urgent LAB 06/28/20 09:45 Completed Lactic Acid Dehydrogenase Stat LAB 06/28/20 09:45 Received PROCALCITONIN Urgent LAB 06/28/20 09:45 Completed RESPIRATORY PANEL 2.1 (PCR) Stat LAB 06/28/20 11:45 Completed RESPIRATORY PANEL 2.1 (PCR) Stat LAB 06/28/20 14:45 Completed TROPONIN I Stat LAB 06/28/20 09:45 Completed URINALYSIS C & S IF INDICATED Stat LAB 06/28/20 09:23 Uncollected 0.9 % Sodium Chloride [Saline Flush] MEDS 06/28/20 09:23 Active 1 syr IVF PRN PRN Acetaminophen [Tylenol] MEDS 06/28/20 09:23 Discontinued 650 mg PO ONCE STA Albuterol Inhaler(with Spacer) [Ventolin Hfa (Per Puff- MEDS 06/28/20 12:59 Discontinued with Spacer)] 2 puff IH ONCE STA Alprazolam [Xanax] MEDS 06/28/20 15:51 Discontinued 0.5 mg PO ONCE STA Azithromycin [Zithromax] MEDS 06/28/20 12:57 Discontinued 500 mg PO ONCE STA Ceftriaxone/D5w 1 gm Premix [Rocephin 1 gm/50 ml D5w] MEDS 06/28/20 11:15 Discontinued 1 gm in 50 ml IV ONCE Ipratropium Inhaler(Spacer) [Atrovent Hfa Inhaler (Per MEDS 06/28/20 12:59 Discontinued Puff-with Spacer)] 2 puff IH ONCE STA Methylprednisolone Sod Succ/Pf [Solu-Medrol 125 mg] MEDS 06/28/20 11:15 Dis continued 125 mg IVP ONCE STA Sodium Chloride 0.9% [Sodium Chloride] 1,000 ml MEDS 06/28/20 09:23 Active IV 125 mls/hr Sodium Chloride 0.9% [Sodium Chloride] 500 ml MEDS 06/28/20 09:23 Discontinued IV BOLUS Vitamin B-1 Inj [Thiamine] MEDS 06/28/20 15:50 Discontinued 100 mg IM ONCE STA CHEST, 1V AP ONLY Stat RADS 06/28/20 11:[address] CERVICAL SPINE W/O CONTRAST Stat RADS 06/28/20 09:[address] CHEST W/O CONTRAST Stat RADS 06/28/20 11:[address] HEAD W/O CONTRAST Stat RADS 06/28/20 09:[address] PELVIS W/O CONTRAST Stat RADS 06/28/20 09:23 Completed Medications Generic Name Dose Route Start Last Admin Trade Name Freq PRN Reason Stop Dose Admin Sodium Chloride 1,000 mls @ 125 mls/hr 06/28/20 09:23 06/28/20 10:40 Sodium Chloride IV 06/28/20 17:22 125 mls/hr .Q8H STA Administration Sodium Chloride 1 syr 06/28/20 09:23 06/28/20 09:41 0.9% Sodium Chloride 10 Ml Disp.Syrin IVF 1 syr PRN PRN Administration To flush IV Discontinued Medications Generic Name Dose Route Start Last Admin Trade Name Freq PRN Reason Stop Dose Admin Acetaminophen 650 mg 06/28/20 09:23 06/28/20 09:43 Acetaminophen 325 Mg Tablet PO 06/28/20 09:24 650 mg ONCE STA Administration Albuterol Sulfate 2 puff 06/28/20 12:59 06/28/20 13:19 Albuterol Sulfate (Ventolin Hfa) 18 Gm 1 Puff With Spacer IH 06/28/20 13:00 2 puff ONCE STA Administration Alprazolam 0.5 mg 06/28/20 15:51 06/28/20 15:59 Alprazolam 0.5 Mg Tablet PO 06/28/20 15:52 0.5 mg ONCE STA Administration Azithromycin 500 mg 06/28/20 12:57 06/28/20 13:05 Azithromycin 250 Mg Tablet PO 06/28/20 12:58 500 mg ONCE STA Administration Sodium Chloride 500 mls @ 500 mls/hr 06/28/20 09:23 06/28/20 09:41 Sodium Chloride IV 06/28/20 10:22 500 mls/hr BOLUS STA Administration CEFTRIAXONE/D5W 1 GM PREMIX 1 gm in 50 mls @ 75 mls/hr 06/28/20 11:15 06/28/20 11:31 Rocephin 1 Gm/50 Ml D5w IV 06/28/20 11:54 75 mls/hr ONCE STA Administration Ipratropium [place] 2 puff 06/28/20 12:59 06/28/20 13:19 Ipratropium [place] 12.9 Gm Hfa Inhaler Per Puff With Spacer IH 06/28/20 13:00 2 puff ONCE STA Administration Methylprednisolone Sodium Succinate 125 mg 06/28/20 11:15 06/28/20 11:33 Methylprednisolone Sod Succ/Pf 125 Mg/2 Ml Vial IVP 06/28/20 11:16 125 mg ONCE STA Administration Thiamine HCl 100 mg 06/28/20 15:50 06/28/20 15:59 Vitamin B-1 200 Mg/2 Ml Vial IM 06/28/20 15:51 100 mg ONCE STA Administration Vital Signs: Temp Pulse Resp BP Pulse Ox 06/28/20 09:11 97.7 F 94 H 16 124/78 95 Discharge Plan Discharge ED Provider: KEV GRADY Physician Progress Note: []
[2020-06-28 10:05] LABS: ALANINE AMINOTRANSFERASE 41.3 U/L (0-50); ALBUMIN 3.63 g/dL (3.5-5.0); ALKALINE PHOSPHATASE 121.3 U/L (56-119); ASPARTATE AMINO TRANSFERASE 59.6 U/L (17-59); BILIRUBIN,TOTAL 0.83 mg/dL (0.2-1.3); CALCIUM 8.85 mg/dL (8.4-10.2); CARBON DIOXIDE 28.2 mmol/L (22-30.0); CHLORIDE 81.5 mmol/L (98-107); CREATINE KINASE 393.9 U/L (55-170); CREATININE 0.67 mg/dL (0.60-1.10); TOTAL PROTEIN 6.63 g/dL (6.3-8.2)
[2020-06-28 10:12] LABS: SODIUM 118.9 mmol/L (134.5-145)
[2020-06-28 10:18] LABS: TROPONIN I < 0.012 ng/ml (0.0000-0.120)
[2020-06-28 10:30] LABS: BASOPHILS % (AUTO) 0.1 % (0.0-3.0); IMMATURE GRANULOCYTE # (AUTO) 0.2 (0.0-1.0); IMMATURE GRANULOCYTE % (AUTO) 1.5 % (0.0-5.0); LYMPHOCYTES % (AUTO) 2.4 (10.0-50.0); MEAN CORPUSCULAR HEMOGLOBIN 36.2 pg (27.0-31.0); MEAN CORPUSCULAR VOLUME 97.7 fl (80.0-94.0); MONOCYTES % (AUTO) 3.3 (0-10); NEUTROPHILS % (AUTO) 92.7 % (42.2-75.2); RDW COEFFICIENT OF VARIATION 13.5 % (11.6-14.8)
--- NOTE | 2020-06-28 10:51 | CT ---
EXAM: CT head without contrast HISTORY: Fall with head injury COMPARISON: CT head 08/28/2019 and multiple priors TECHNIQUE: Serial axial images of the brain were obtained from the skull base to the vertex without IV contrast. FINDINGS: The ventricles, cisterns and sulci demonstrates mild generalized volume loss. The benedict-wh ite matter junction is maintained. There is minimal low attenuation in the periventricular white mat ter.No midline shift or mass is identified. There is no abnormal intra or extra-axial fluid collecti on. The paranasal sinuses and mastoid air cells are clear. There is calcific atherosclerotic diseas e of the carotid arteries. The osseous calvarium is intact. IMPRESSION: 1. No acute intracranial abnormality or hemorrhage. 2. Mild generalized volume loss and scattered microangiopathy.
[2020-06-28 10:58] LABS: HEMATOCRIT 38.1 % (42.0-52.0); HEMOGLOBIN 14.1 g/dl (14.0-18.0)
--- NOTE | 2020-06-28 10:58 | CT ---
EXAM: CT cervical spine without contrast HISTORY: Fall, neck pain COMPARISON: 03/22/2018 TECHNIQUE: CT cervical spine performed without intravenous contrast. Coronal and sagittal reformatt ed images obtained. The FINDINGS: Vertebral bodies normal in height. No fracture. Multilevel marginal osteophyte formation . Severe multilevel intervertebral disc spacing. Multilevel facet and uncovertebral hypertrophy. C hronic remodeling and hypoplasia and sclerosis left lateral mass C2 that may be due to old trauma. 2 mm anterolisthesis C2 and C3 and 1 mm anterolisthesis C3 on C4 and 2 mm anterolisthesis C7 on T1, un changed. Straightening of the normal cervical lordosis. Degenerative changes cause mild and moderat e multilevel central canal narrowing and varying degrees of multilevel bilateral neural foraminal stevenson rowing. Prevertebral soft tissues appear normal. Scattered biapical ground-glass opacities. IMPRESSION: 1. No acute osseous abnormality cervical spine. 2. Chronic discogenic degenerative disease and facet arthrosis. Multilevel grade 1 anterolistheses, unchanged. 3. Chronic remodeling hypoplasia and sclerosis left lateral mass C2 that may be due to old trauma 4. Straightening of the normal cervical lordosis. 5. Scattered biapical ground-glass opacities are incompletely imaged, nonspecific and could be infec tious/inflammatory.
[2020-06-28 10:59] LABS: PLATELET COUNT 165 10^3/uL (140-440)
[2020-06-28 11:00] LABS: LYMPHOCYTES # (AUTO) 0.8 K/uL (0.60-3.4); NEUTROPHILS # (AUTO) 29.2 K/ul (2.0-6.9)
[2020-06-28 11:01] LABS: MONOCYTES # (AUTO) 1.1 K/uL (0.4-2.0)
--- NOTE | 2020-06-28 11:03 | CT ---
Exam: CT pelvis without intravenous contrast. Comparison: CT abdomen pelvis performed 06/25/2016. Reason for exam: Fall. FINDINGS: Grade 1 anterior listhesis of L5 on S1 with pars defects. Findings appear similar to prev ious CT imaging performed on 06/25/2016. No obvious fracture is seen within the pelvic ring. No acute fracture in either hip. 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 Impression: No obvious fracture is seen within the pelvis. Similar appearing grade 1 anterior listhesis of L5 on S1 with bilateral pars defects.
[2020-06-28] MEDS ORDERED: ROCEPHIN 1 GM/50 ML D5W 1 GM/50 ML BAG IV STA (11:15)
[2020-06-28] MEDS ORDERED: SOLU-MEDROL 125 MG IVP STA (11:15)
--- NOTE | 2020-06-28 11:33 | DI ---
EXAM: Single view of the chest HISTORY: Fall with cough. COMPARISON: Chest x-ray 12/26/2019 and multiple priors FINDINGS: Cardiomediastinal silhouette is unremarkable with stable sternotomy wires. There is athero sclerotic disease of the aorta which is prominent. There is no pneumothorax or effusion. There is n o consolidation, nodule or mass. There is mild ground-glass in the lower lobes. The osseous structu res are unremarkable with degenerative disease. IMPRESSION: Mild ground-glass in the lower lobes suggestive of bronchiolitis/small airways reactive changes.
[2020-06-28 12:08] LABS: ABG PH 7.57 (7.35-7.45)
[2020-06-28 12:09] LABS: ABG BASE EXCESS 0.9 (-2.0-2.0); ABG HCO3 22.9 (22.0-26.0); ABG OXYGEN SATURATION 97.3 % (95-100); ABG TCO2 23.7 (22.0-28.0)
[2020-06-28] MEDS ORDERED: ZITHROMAX PO STA (12:57)
[2020-06-28] MEDS ORDERED: ATROVENT HFA INHALER (PER PUFF-WITH SPACER) IH STA (12:59)
[2020-06-28] MEDS ORDERED: VENTOLIN HFA (PER PUFF-WITH SPACER) IH STA (12:59)
--- NOTE | 2020-06-28 13:19 | CT ---
EXAM: The chest without contrast HISTORY: Elevated white blood cell count COMPARISON: None TECHNIQUE: CT chest performed without intravenous contrast. Coronal and sagittal reformatted images obtained. FINDINGS: Thoracic inlet unremarkable. Heart normal in size. Coronary calcifications. Post CABG c hanges. Aorta normal in caliber. Moderate to severe atherosclerosis. Evaluation for lymphadenopath y limited without contrast. No lymphadenopathy identified in the chest. Nonspecific bilateral perin ephric stranding. Kidneys are incompletely imaged. No acute abnormalities bones. Generate change i n the spine. Median sternotomy wires. Central airway patent. Multifocal bilateral ground-glass inf iltrates throughout both lungs. Trace left pleural effusion with mild bibasilar atelectasis. No pne umothorax. IMPRESSION: 1. Multifocal bilateral ground-glass infiltrates throughout both lungs, most consistent with pneumon ia. COVID-19 pneumonia is a consideration. 2. Trace left pleural effusion. Mild bibasilar atelectasis. 3. Cardiomegaly. Post CABG changes. Coronary calcifications. Atherosclerosis. 4. Nonspecific bilateral perinephric stranding. Kidneys are incompletely imaged.
[2020-06-28] MEDS ORDERED: THIAMINE IM STA (15:50)
[2020-06-28] MEDS ORDERED: XANAX PO STA (15:51)
[2020-06-28] MEDS ORDERED: LIBRIUM PO PRN (17:36)
[2020-06-28] MEDS ORDERED: VENTOLIN HFA (PER PUFF-WITH SPACER) IH PRN (17:36)
[2020-06-28] MEDS ORDERED: ATROVENT HFA INHALER (PER PUFF-WITH SPACER) IH PRN (17:51)
[2020-06-28 17:56] VITALS: BMI 27.1
[2020-06-28] MEDS ORDERED: ATROVENT HFA INHALER (PER PUFF-WITH SPACER) IH SCH (18:00)
[2020-06-28] MEDS ORDERED: SODIUM CHLORIDE 1,000 ML IV SCH (18:00)
[2020-06-28] MEDS ORDERED: LASIX IVP STA (18:37)
[2020-06-28] MEDS ORDERED: TORADOL IVP STA (18:42)
[2020-06-28] MEDS: SODIUM CHLORIDE 1,000 ML IV SCH (20:58)
[2020-06-28] MEDS: NORVASC PO SCH (21:18)
[2020-06-28] MEDS: ATIVAN PO SCH (21:18)
[2020-06-28] MEDS: HUMULIN R SUBCUT PRN (21:18)
[2020-06-28] MEDS: DOXYCYCLINE HYCLATE PO SCH (21:18)
[2020-06-28] MEDS: LEVSIN PO SCH (21:18)
[2020-06-28] MEDS: SOLU-MEDROL 125 MG IVP SCH (22:25)
[2020-06-29 05:31] LABS: ALANINE AMINOTRANSFERASE 34.6 U/L (0-50); ALBUMIN 3.18 g/dL (3.5-5.0); ALKALINE PHOSPHATASE 107.9 U/L (56-119); ASPARTATE AMINO TRANSFERASE 47.4 U/L (17-59); BILIRUBIN,TOTAL 0.5 mg/dL (0.2-1.3); BLOOD UREA NITROGEN 18.4 mg/dL (9-20); CALCIUM 8.68 mg/dL (8.4-10.2); CHLORIDE 92.5 mmol/L (98-107); CREATININE 0.55 mg/dL (0.60-1.10); GLUCOSE 126.2 mg/dL (74-106); POTASSIUM 3.4 mmol/L (3.5-5.1); SODIUM 125.3 mmol/L (134.5-145); TOTAL PROTEIN 5.93 g/dL (6.3-8.2)
[2020-06-29] MEDS: SYNTHROID PO SCH (05:49)
[2020-06-29] MEDS: SOLU-MEDROL 125 MG IVP SCH ×3 (06:05→20:31)
[2020-06-29 06:09] LABS: HEMATOCRIT 37.8 % (42.0-52.0); MEAN CORPUSCULAR HEMOGLOBIN 35.9 pg (27.0-31.0); MEAN CORPUSCULAR VOLUME 96.9 fl (80.0-94.0); PLATELET COUNT 127 10^3/uL (140-440); RDW COEFFICIENT OF VARIATION 13.4 % (11.6-14.8); WHITE BLOOD COUNT 31.54 K/ul (4.2-10.2)
[2020-06-29 06:12] LABS: ANISOCYTOSIS NOT PRESENT (NOT PRESENT)
[2020-06-29] MEDS ORDERED: DICLOFENAC SODIUM PO SCH (09:00)
[2020-06-29] MEDS: ROCEPHIN 1 GM/50 ML D5W 1 GM/50 ML BAG IV SCH (09:23)
[2020-06-29] MEDS: TOPROL XL PO SCH (09:24)
[2020-06-29] MEDS: NORVASC PO SCH ×2 (09:24→20:53)
[2020-06-29] MEDS: ATIVAN PO SCH ×3 (09:24→20:53)
[2020-06-29] MEDS: ASPIRIN EC PO SCH (09:24)
[2020-06-29] MEDS: MULTIVITAMIN TABLET PO SCH (09:25)
[2020-06-29] MEDS: ZOCOR PO SCH (09:25)
[2020-06-29] MEDS: LEVSIN PO SCH ×2 (09:25→20:53)
[2020-06-29] MEDS: BENICAR PO SCH (09:25)
[2020-06-29] MEDS: LEXAPRO PO SCH (09:25)
[2020-06-29] MEDS: ZYLOPRIM PO SCH (09:26)
[2020-06-29] MEDS: THIAMINE IM SCH (09:26)
[2020-06-29] MEDS: DOXYCYCLINE HYCLATE PO SCH ×2 (09:26→20:53)
[2020-06-29] MEDS: NON-FORMULARY MEDICATION (Coenzyme Q10 [Coq-10] 100 mg Capsule) PO SCH (09:27)
[2020-06-29 09:31] LABS: BILIRUBIN,URINE Negative (NEGATIVE); CLARITY,URINE Slightly (CLEAR); COLOR,URINE Yellow (YELLOW); GLUCOSE, URINE (UA) Negative (NEGATIVE); KETONES,URINE Negative (NEGATIVE); LEUKOCYTE ESTERASE ,URINE Trace (NEGATIVE); NITRITE,URINE Negative (NEGATIVE); PH,URINE 5.5 (5-9); PROTEIN,URINE 2+ (NEGATIVE); URINE, BLOOD Trace-lysed (NEGATIVE); UROBILINOGEN,URINE 0.2 (0.2)
[2020-06-29 09:49] LABS: URINE RBC, MICROSCOPIC 0-2 (0-2); URINE WBC, MICROSCOPIC 50-100 (0-2)
[2020-06-29 09:50] LABS: BACTERIA,URINE 1+ (NOT PRESENT); RENAL EPITHELIAL CELLS,URINE 0-2 (NOT PRESENT)
[2020-06-29 10:27] LABS: C-REACTIVE PROTEIN 215 mg/L (0-10)
[2020-06-29] MEDS ORDERED: ZITHROMAX PO STA (11:06)
[2020-06-29] MEDS: HUMULIN R SUBCUT PRN (11:50)
[2020-06-29] MEDS: SODIUM CHLORIDE 1,000 ML IV SCH (14:39)
[2020-06-29] MEDS: K-DUR PO SCH (16:44)
[2020-06-30 05:30] LABS: ALANINE AMINOTRANSFERASE 55.6 U/L (0-50); ALBUMIN 2.99 g/dL (3.5-5.0); ALKALINE PHOSPHATASE 101.6 U/L (56-119); ASPARTATE AMINO TRANSFERASE 75.2 U/L (17-59); BILIRUBIN,TOTAL 0.49 mg/dL (0.2-1.3); BLOOD UREA NITROGEN 21.2 mg/dL (9-20); CALCIUM 8.53 mg/dL (8.4-10.2); CARBON DIOXIDE 23.9 mmol/L (22-30.0); CHLORIDE 93.1 mmol/L (98-107); CREATININE 0.54 mg/dL (0.60-1.10); GLUCOSE 119.3 mg/dL (74-106); POTASSIUM 3.46 mmol/L (3.5-5.1); TOTAL PROTEIN 5.7 g/dL (6.3-8.2)
[2020-06-30 05:39] LABS: HEMATOCRIT 36.7 % (42.0-52.0); HEMOGLOBIN 13.7 g/dl (14.0-18.0); MEAN CORPUSCULAR HEMOGLOBIN 36.1 pg (27.0-31.0); MEAN CORPUSCULAR HGB CONC 37.3 (31.8-35.4); MEAN CORPUSCULAR VOLUME 96.6 fl (80.0-94.0); PLATELET COUNT 126 10^3/uL (140-440); RDW COEFFICIENT OF VARIATION 13.2 % (11.6-14.8); WHITE BLOOD COUNT 26.85 K/ul (4.2-10.2)
[2020-06-30 05:42] LABS: ANISOCYTOSIS NOT PRESENT (NOT PRESENT)
[2020-06-30] MEDS: SYNTHROID PO SCH (06:12)
[2020-06-30] MEDS: LEXAPRO PO SCH (08:04)
[2020-06-30] MEDS: ASPIRIN EC PO SCH (08:04)
[2020-06-30] MEDS: BENICAR PO SCH (08:04)
[2020-06-30] MEDS: MULTIVITAMIN TABLET PO SCH (08:04)
[2020-06-30] MEDS: K-DUR PO SCH ×2 (08:04→17:18)
[2020-06-30] MEDS: DOXYCYCLINE HYCLATE PO SCH ×2 (08:05→20:53)
[2020-06-30] MEDS: NORVASC PO SCH ×2 (08:05→20:53)
[2020-06-30] MEDS: LEVSIN PO SCH ×2 (08:05→20:53)
[2020-06-30] MEDS: THIAMINE IM SCH (08:05)
[2020-06-30] MEDS: TOPROL XL PO SCH (08:05)
[2020-06-30] MEDS: ZYLOPRIM PO SCH (08:05)
[2020-06-30] MEDS: ZOCOR PO SCH (08:05)
[2020-06-30] MEDS: ATIVAN PO SCH ×3 (08:05→20:53)
[2020-06-30] MEDS: NON-FORMULARY MEDICATION (Coenzyme Q10 [Coq-10] 100 mg Capsule) PO SCH (08:15)
[2020-06-30] MEDS: ROCEPHIN 1 GM/50 ML D5W 1 GM/50 ML BAG IV SCH (08:24)
[2020-06-30] MEDS: DECADRON IVP SCH (08:26)
[2020-06-30] MEDS ORDERED: ZITHROMAX PO SCH (09:00)
[2020-06-30 12:26] LABS: ABG BASE EXCESS 1.1 (-2.0-2.0); ABG HCO3 24.4 (22.0-26.0); ABG OXYGEN SATURATION 90.3 % (95-100); ABG PH 7.49 (7.35-7.45); ABG TCO2 25.4 (22.0-28.0)
--- NOTE | 2020-06-30 12:31 | DI ---
EXAM: Two views of the chest COMPARISON: Chest radiograph 06/28/2020 HISTORY: Pneumonia FINDINGS: Postoperative changes from coronary bypass. Aortic calcifications. Heart size is normal. New/worsened interstitial opacities in the right greater than left lungs. No pleural effusion or pneumothorax. Moderate multilevel degenerative spondylosis and osteoarthrosis of the shoulders. IMPRESSION: New/worsened pulmonary opacities from interstitial pulmonary edema or atypical/viral pneumonia.
[2020-06-30] MEDS: SODIUM CHLORIDE 1,000 ML IV SCH (12:32)
[2020-06-30] MEDS ORDERED: LASIX IVP STA (13:11)
[2020-06-30] MEDS: HUMULIN R SUBCUT PRN (17:19)
[2020-06-30] MEDS: NORCO 7.5-325 PO PRN (20:53)
[2020-07-01] MEDS: SYNTHROID PO SCH (06:02)
[2020-07-01 06:40] LABS: HEMATOCRIT 35.9 % (42.0-52.0); HEMOGLOBIN 13.3 g/dl (14.0-18.0); MEAN CORPUSCULAR HEMOGLOBIN 35.6 pg (27.0-31.0); PLATELET COUNT 128 10^3/uL (140-440); RDW COEFFICIENT OF VARIATION 13.3 % (11.6-14.8); RED BLOOD COUNT 3.74 10^6/ul (4.70-6.10); WHITE BLOOD COUNT 24.11 K/ul (4.2-10.2)
[2020-07-01 06:45] LABS: ANISOCYTOSIS NOT PRESENT (NOT PRESENT)
[2020-07-01 06:52] LABS: ALANINE AMINOTRANSFERASE 101.3 U/L (0-50); ALBUMIN 2.88 g/dL (3.5-5.0); ASPARTATE AMINO TRANSFERASE 84.9 U/L (17-59); BILIRUBIN,TOTAL 0.62 mg/dL (0.2-1.3); BLOOD UREA NITROGEN 21.3 mg/dL (9-20); CALCIUM 8.49 mg/dL (8.4-10.2); CARBON DIOXIDE 28.9 mmol/L (22-30.0); CHLORIDE 94.6 mmol/L (98-107); CREATININE 0.55 mg/dL (0.60-1.10); GLUCOSE 97.2 mg/dL (74-106); POTASSIUM 3.4 mmol/L (3.5-5.1); SODIUM 125.9 mmol/L (134.5-145); TOTAL PROTEIN 5.55 g/dL (6.3-8.2)
[2020-07-01] MEDS: SODIUM CHLORIDE 1,000 ML IV SCH (08:59)
[2020-07-01] MEDS: ASPIRIN EC PO SCH (09:00)
[2020-07-01] MEDS: DOXYCYCLINE HYCLATE PO SCH ×2 (09:00→20:49)
[2020-07-01] MEDS: BENICAR PO SCH (09:00)
[2020-07-01] MEDS: LEVSIN PO SCH ×2 (09:00→20:49)
[2020-07-01] MEDS: NORVASC PO SCH ×2 (09:01→20:49)
[2020-07-01] MEDS: K-DUR PO SCH ×3 (09:01→17:24)
[2020-07-01] MEDS: ATIVAN PO SCH ×3 (09:01→20:49)
[2020-07-01] MEDS: ZYLOPRIM PO SCH (09:01)
[2020-07-01] MEDS: TOPROL XL PO SCH (09:02)
[2020-07-01] MEDS: LEXAPRO PO SCH (09:02)
[2020-07-01] MEDS: ZOCOR PO SCH (09:02)
[2020-07-01] MEDS: THIAMINE IM SCH (09:02)
[2020-07-01] MEDS: DECADRON IVP SCH (09:02)
[2020-07-01] MEDS: MULTIVITAMIN TABLET PO SCH (09:02)
[2020-07-01] MEDS: ROCEPHIN 1 GM/50 ML D5W 1 GM/50 ML BAG IV SCH (09:10)
[2020-07-01] MEDS: NON-FORMULARY MEDICATION (Coenzyme Q10 [Coq-10] 100 mg Capsule) PO SCH (09:11)
--- NOTE | 2020-07-01 09:51 | PCM.PROG ---
Attending Provider: ATTENDING PROVIDER: Dr. NICKY SALAZAR This patient is seen with Sonia Matos, Nurse Practitioner. DATE OF SERVICE: 07/01/20 SUBJECTIVE: This 70 year old /WHITE M was hospitalized 06/28/20. The patient is resting comfortably. Still with O2 sating at 93%. He is eating well and no fever. No respiratory distress. REVIEW OF SYSTEMS: CONSTITUTIONAL: No night sweats. No fatigue, malaise, lethargy. No fever or chills. Weakness. HEENT: Eyes: No visual changes. No eye pain. No eye discharge. ENT: No runny nose. No epistaxis. No sinus pain. No odynophagia. No congestion. RESPIRATORY: Cough, no congestion. No hemoptysis. No shortness of breath. CARDIOVASCULAR: No angina symptoms. No CHF symptoms. No atypical chest pain for CAD. No palpitations. No orthopnea.. GASTROINTESTINAL: No abdominal pain. No nausea or vomiting. No diarrhea or constipation. No hematemesis. No hematochezia. GENITOURINARY: No urgency. No frequency. No dysuria. No hematuria. No obstructive symptoms. No discharge. No pain. No significant abnormal bleeding. MUSCULOSKELETAL: No musculoskeletal pain; no joint swelling. NEUROLOGICAL: Awake, alert, oriented to time, place and person. No headache. No neck pain. No syncope. No seizures. No dizziness. PSYCHIATRIC: Not anxious. No depression. No suicidal thoughts. No homicidal thoughts. SKIN: No rash. No lesions. No wounds. ENDOCRINE: No unexplained weight loss. No weight gain. HEMATOLOGIC/LYMPHATIC: No anemia. No purpura. No petechiae. No prolonged or excessive bleeding. No palpable lymph nodes. PHYSICAL EXAMINATION: GENERAL: The patient is awake, alert and oriented, lying in bed in no distress. VITAL SIGNS: Temperature 97.4 F, Pulse 67, Respiratory Rate 16, BP 120/71, Pulse Ox 93% HEENT: Head normocephalic, atraumatic. Eyes: Extraocular muscles are intact. Pupils are equal, round and reactive to light and accommodation. Ears: No lesions. Nose appeared normal. Throat: No exudate or erythema. NECK: Supple. No JVD, no carotid bruit. No lymphadenopathy or thyromegaly. LUNGS: Diminished breath sounds. Clear to auscultation. Percussion note normal. Chest symmetrical. HEART: S1, S2, no S3. No murmurs. No cyanosis or clubbing. No ascites. Pulses: Dorsalis pedis and posterior tibial pulses +1 to +2 both sides. ABDOMEN: Soft. Non-tender. Bowel sounds active. No CVA tenderness. No mass felt. EXTREMITIES: No edema. Full range of motion of all extremities, equal. NEUROLOGIC: No focal deficit. Cranial nerves II through XII are grossly intact. No headache, no double vision or headache. SKIN: Not dry. Intact. Turgor-normal. LYMPHATIC: No palpable lymph nodes/no lymphedema. MUSCULOSKELETAL: Normal joints with no swelling. Muscle tone is normal. LAB REVIEW: 07/01/20 05:45 07/01/20 05:45 07/01/20 05:45: Sodium 125.9 L, Potassium 3.40 L, Chloride 94.6 L, Carbon Dioxide 28.9, Anion Gap 5.80, BUN 21.3 H, Creatinine 0.55 L, Estimated GFR (MDRD) 147.00, BUN/Creatinine Ratio 38.72, Glucose 97.2, Calcium 8.49, Total Bilirubin 0.62, AST 84.9 H, ALT 101.3 H D, Alkaline Phosphatase 95.0, Total Protein 5.55 L, Albumin 2.88 L, Globulin 2.67, Albumin/Globulin Ratio 1.07 07/01/20 05:45: WBC 24.11 H, RBC 3.74 L, Hgb 13.3 L, Hct 35.9 L, MCV 96.0 H, MCH 35.6 H, MCHC 37.0 H, RDW Coeff of Audrey 13.3, Plt Count 128 L, Neutrophils % (Manual) 94.0 H, Lymphocytes % (Manual) 3.0 L, Monocytes % (Manual) 1.0, R eactive Lymphocytes 2.0, Anisocytosis Not present 06/30/20 11:37: Puncture Site Rbrach, O2 Saturation 90.3 L, ABG pH 7.49 H, ABG pCO2 32.0 L, ABG pO2 54.0 L*, ABG HCO3 24.4, ABG Total CO2 25.4, ABG Base Excess 1.1, FiO2 % 21.0 ASSESSMENT: Please see below. 1. Bilateral pneumonia 2. Hyponatremia 3. Coronary artery disease 4. Hypokalemia 5. Acute respiratory failure, resolved. PLAN: 1. Potassium 40meq BID today 2. Last dose of Decadron today and start Prednisone 20mg daily tomorrow 3. Continue IV fluids. Plan and coordination of the patient's care discussed in the presence of Environmental Services Tech and nurse. SCRIBED BY: ANNA LANG [employer] Cartoonist scribed while in presence of service performed by Dr. Salazar/Sonia Matos APRN on 07/01/20 ([id number])
--- NOTE | 2020-07-01 13:37 | PN ---
DATE OF SERVICE: 06/28/20 - ADMIT NOTE SUBJECTIVE: 70-year-old white male brought to the emergency room by family because the patient was found on the floor laying 12 hours. The patient called me at the time and was instructed to go to the emergency room with problem of walking, balance, passing out. The patient was seen and examined in the emergency room. Prior to that the patient had a chest x-ray which showed bilateral pneumonia. The patient had Covid test done in the emergency room which was negative. Plans were made to transfer him because of double pneumonia, multiple comordities but they were unsuccessful. [facility] as well as hospitals in [place] and [facility] declined to accept the patient, Covid negative. In any case the patient wanted to stay at [facility]. He is a DNR. PHYSICAL EXAMINATION: HEENT: Head normocephalic, atraumatic. Eyes: Extraocular muscles are intact. Pupils are equal, round and reactive to light and accommodation. Ears: No lesions. Nose appeared normal. Throat: No exudate or erythema. NECK: Supple. No JVD, no carotid bruit. No lymphadenopathy or thyromegaly. LUNGS: Decreased breath sounds but clear to auscultation. Percussion note normal. Chest symmetrical. HEART: S1, S2, no S3. No murmurs. No cyanosis or clubbing. No ascites. Pulses: Dorsalis pedis and posterior tibial pulses +1 to +2 bilaterally. ABDOMEN: Soft. Nontender. Bowel sounds active. No CVA tenderness. No mass felt. EXTREMITIES: No edema. Full range of motion of all extremities, equal. NEUROLOGIC: Oriented to time, place and person. No focal deficit. Cranial nerves II through XII are grossly intact. No headache, no double vision or headache. SKIN: Not dry. Intact. Turgor - normal. LYMPHATIC: No palpable lymph nodes/no lymphedema. MUSCULOSKELETAL: Normal joints with no swelling. Muscle tone is normal. LABS: The patient's WBC count was 31,000. Chest x-ray showed double pneumonia. EKG sinus rhythm, poor R wave progression, no change from the EKG before. Sinus rhythm, rate 80/min. ABGs acceptable with p02 of 80, saturation 94% on room air. ASSESSMENT: 1. Double pneumonia, community acquired, could be aspiration. 2. The patient gives history of passing out. The patient admitted drinking heavily. 3. Hyponatremia. 4. Coronary artery disease with history of MT. 5. Hypertension. 6. Dyslipidemia. PLAN: 1. Give NS 5 cc/hr. 2. Watch for fluid overload. 3. Rocephin and Zithromax, will add Doxycycline. 4. Blood cultures. 5. Septic workup. 6. Telemetry orders which would include serial EKG and cardiac markers. 7. Solu-Medrol IV. 8. The patient is to be admitted to the floor. TIME SPENT: More than 30 minutes. Plan and coordination of the patient's care discussed in the presence of nurse. BRYAN
--- NOTE | 2020-07-01 14:12 | PN ---
DATE OF SERVICE: 06/29/20 SUBJECTIVE: 70-year-old white male hospitalized with bilateral pneumonia and hyponatremia. His condition seems to have improved clinically. He is feeling a lot better. He is less jittery, mild shaking noted from withdrawal, very likely DTs. REVIEW OF SYSTEMS: CONSTITUTIONAL: No night sweats. No fatigue, malaise, lethargy. No fever or chills. HEENT: Eyes: No visual changes. No eye pain. No eye discharge. ENT: No runny nose. No epistaxis. No sinus pain. No sore throat. No odynophagia. No congestion. RESPIRATORY: No cough, no congestion. No hemoptysis. No shortness of breath. CARDIOVASCULAR: No angina symptoms. No CHF symptoms. No atypical chest pain for CAD. No palpitations. No PND. No orthopnea. GASTROINTESTINAL: No abdominal pain. No nausea or vomiting. No diarrhea or constipation. No hematemesis. No hematochezia. GENITOURINARY: No urgency. No frequency. No dysuria. No hematuria. No obstructive symptoms. No discharge. No pain. No significant abnormal bleeding. MUSCULOSKELETAL: No musculoskeletal pain; no joint swelling. NEUROLOGICAL: No headache. No neck pain. No syncope. No seizures. No dizziness. PSYCHIATRIC: Not anxious. No depression. No suicidal thoughts. No homicidal thoughts. SKIN: No rash. No lesions. No wounds. ENDOCRINE: No unexplained weight loss. No weight gain. HEMATOLOGIC/LYMPHATIC: No anemia. No purpura. No petechiae. No prolonged or excessive bleeding. No palpable lymph nodes. PHYSICAL EXAMINATION: GENERAL: The patient is feeling better, less anxious. No fever, no chills. VITALS: Temperature 96.4, pulse 77, respiratory rate 18, Blood Pressure 144/80, pulse ox 96% with 2L. HEENT: Head normocephalic, atraumatic. Eyes: Extraocular muscles are intact. Pupils are equal, round and reactive to light and accommodation. Ears: No lesions. Nose appeared normal. Throat: No exudate or erythema. NECK: Supple. No JVD, no carotid bruit. No lymphadenopathy or thyromegaly. LUNGS: Decreased breath sounds but clear to auscultation. Percussion note normal. Chest symmetrical. HEART: S1, S2, no S3. No murmurs. No cyanosis or clubbing. No ascites. Pulses: Dorsalis pedis and posterior tibial pulses +1 to +2 bilaterally. ABDOMEN: Soft. Nontender. Bowel sounds active. No CVA tenderness. No mass felt. EXTREMITIES: No edema. Full range of motion of all extremities, equal. : No frequency of urination. NEUROLOGIC: No focal deficit. Cranial nerves II through XII are grossly intact. No headache, no double vision or headache. SKIN: Not dry. Intact. Turgor - normal. LYMPHATIC: No palpable lymph nodes/no lymphedema. MUSCULOSKELETAL: Normal joints with no swelling. Muscle tone is normal. LABS: Hemoglobin 14, hematocrit 37, WBC 31,000 with shift. Creatinine 0.5, BUN 18. Potassium 3.4. Sodium 125. ASSESSMENT: 1. Bilateral pneumonia. 2. Respiratory failure. 3. Hyponatremia. 4. Hypokalemia. 5. Alcohol withdrawal. PLAN: 1. Discontinue Diclofenac. 2. Zithromax 500 mg p.o. and tomorrow. 3. Doxycycline 100 mg IV q.12hourly. 4. K-Tab 20 mEq twice a day. 5. IV Solu-Medrol from tomorrow. 6. Decadron 6 mg IV daily from tomorrow. 7. CBC, CMP. 8. T4, TSH in the morning. 9. Procalcitonin and Lactic Acid tomorrow morning. 10. Sliding scale with coverage for blood sugar. 11. Counseling for alcohol done. Admitted that he has been drinking fairly heavily lately. 12. Continue Normal Saline and decrease the rate to 75 cc/hr. 13. Watch for fluid overload. 14. The patient is put on regular diet. 15. The patient's telemetry strips examined. The patient is in sinus rhythm. No arrhythmias noted. 16. Cardiac markers negative. 17. CK-MB 6.4 which is borderline. No evidence of any coronary insufficiency otherwise clinically as well as history. TIME SPENT: This followup was extensive. Total time spent more than 30 minutes. Plan and coordination of the patient's care discussed in the presence of nurse. BRYAN
[2020-07-01] MEDS: HUMULIN R SUBCUT PRN (20:50)
[2020-07-02] MEDS: SODIUM CHLORIDE 1,000 ML IV SCH ×2 (04:37→22:08)
[2020-07-02 05:27] LABS: HEMATOCRIT 37.8 % (42.0-52.0); HEMOGLOBIN 14.1 g/dl (14.0-18.0); MEAN CORPUSCULAR HEMOGLOBIN 36.2 pg (27.0-31.0); MEAN CORPUSCULAR HGB CONC 37.3 (31.8-35.4); MEAN CORPUSCULAR VOLUME 96.9 fl (80.0-94.0); PLATELET COUNT 150 10^3/uL (140-440); RDW COEFFICIENT OF VARIATION 13.4 % (11.6-14.8); WHITE BLOOD COUNT 23.72 K/ul (4.2-10.2)
[2020-07-02 05:33] LABS: ANISOCYTOSIS NOT PRESENT (NOT PRESENT)
[2020-07-02 05:39] LABS: ALANINE AMINOTRANSFERASE 138.9 U/L (0-50); ALBUMIN 3.13 g/dL (3.5-5.0); ALKALINE PHOSPHATASE 91.8 U/L (56-119); ASPARTATE AMINO TRANSFERASE 91.7 U/L (17-59); BILIRUBIN,TOTAL 0.86 mg/dL (0.2-1.3); BLOOD UREA NITROGEN 17.5 mg/dL (9-20); CALCIUM 8.5 mg/dL (8.4-10.2); CARBON DIOXIDE 27.5 mmol/L (22-30.0); CHLORIDE 94.5 mmol/L (98-107); CREATININE 0.49 mg/dL (0.60-1.10); GLUCOSE 74.5 mg/dL (74-106); POTASSIUM 4.06 mmol/L (3.5-5.1); SODIUM 127.2 mmol/L (134.5-145); TOTAL PROTEIN 5.91 g/dL (6.3-8.2)
[2020-07-02] MEDS: SYNTHROID PO SCH (05:57)
--- NOTE | 2020-07-02 08:22 | HP ---
DATE OF SERVICE: 06/28/20 HISTORY OF PRESENT ILLNESS: 70-year-old white male who had fallen at home, complained of neck pain this morning. He hit the back of his head and neck. He was on the floor for probably 10+ hours. PAST MEDICAL HISTORY: Chronic hyponatremia Recurrent falls Recurrent dizziness Alcohol abuse Hypertension Hypothyroidism History of [place] Coronary artery disease with stent Depression/anxiety Recurring gout Metabolic syndrome Severe degenerative disk disease of the C-spine Cervical radiculopathy Obstructive sleep apnea, wears CPAP History of prostate cancer PAST SURGICAL HISTORY: Prostatectomy by Dr. Washington CABG, four vessel Hernia repair Last echo was in August of 2019 REVIEW OF SYSTEMS: CONSTITUTIONAL: No night sweats. No fatigue, malaise, lethargy. No fever or chills. HEENT: Eyes: No visual changes. No eye pain. No eye discharge. ENT: No runny nose. No epistaxis. No sinus pain. No sore throat. No odynophagia. No ear pain. No congestion. RESPIRATORY: Positive for mild shortness of breath. No cough, no congestion. No hemoptysis. CARDIOVASCULAR: No angina symptoms. No CHF symptoms. No atypical chest pain for CAD. No palpitations. No PND. No orthopnea. GASTROINTESTINAL: No abdominal pain. No nausea or vomiting. No diarrhea or constipation. No hematemesis. No hematochezia. GENITOURINARY: No urgency. No frequency. No dysuria. No hematuria. No obstructive symptoms. No discharge. No pain. No significant abnormal bleeding. MUSCULOSKELETAL: No musculoskeletal pain. No joint swelling. No arthritis. NEUROLOGICAL: Positive for headache, neck pain. No syncope. No seizures. No dizziness. PSYCHIATRIC: Not anxious. No depression. No suicidal thoughts. No homicidal thoughts. SKIN: No rash. No lesions. No wounds. ENDOCRINE: No unexplained weight loss. No weight gain. HEMATOLOGIC/LYMPHATIC: No anemia. No purpura. No petechiae. No prolonged or excessive bleeding. No palpable lymph nodes. PERSONAL/FAMILY/SOCIAL HISTORY: He is . He lives at home alone. No drug use. Nonsmoker. He does report using alcohol daily. MEDICATIONS: Aspirin 81 mg p.o. daily with meal Simvastatin 40 mg p.o. daily Levothyroxine 50 mcg p.o. daily Allopurinol 400 mg p.o. daily Coenzyme Q10 100 mg p.o. daily Hyoscyamine Sulfate 0.125 mg p.o. b.i.d. Escitalopram Oxalate 10 mg p.o. daily Multivitamin one tab p.o. daily Sildenafil 100 mg p.o. daily p.r.n. Metoprolol Succinate 50 mg p.o. daily Hydrocodone-Acetaminophen 7.5-325 mg one tab p.o. b.i.d. p.r.n. Amlodipine 5 mg p.o. b.i.d. Olmesartan 40 mg p.o. daily Diclofenac 75 mg p.o. daily ALLERGIES: NKDA PHYSICAL EXAMINATION: GENERAL: Some confusion, oriented to person only. VITAL SIGNS: Temperature 97.7, heart rate 94, respirations 16, blood pressure 124/78, pulse ox 95%. HEENT: Head normocephalic, atraumatic. Eyes: Extraocular muscles are intact. Pupils are equal, round and reactive to light and accommodation. Ears: No lesions. Nose appeared normal. Throat: No exudate or erythema. NECK: Supple. No JVD, no carotid bruit. No lymphadenopathy or thyromegaly. LUNGS: Diminished breath sounds bilaterally. Clear to auscultation. Percussion note normal. Chest symmetrical. HEART: S1, S2, no S3. No murmur. No cyanosis or clubbing. No ascites. Pulses: Dorsalis pedis and posterior tibial pulses +1 to +2 bilaterally. ABDOMEN: Soft. Nontender. Bowel sounds active. No CVA tenderness. No mass felt. EXTREMITIES: No edema. Full range of motion of all extremities, equal. NEUROLOGIC: No focal deficit. Cranial nerves II through XII are grossly intact. No headache, no double vision or headache. SKIN: Not dry. Intact. Turgor - normal. LYMPHATIC: No palpable lymph nodes/no lymphedema. MUSCULOSKELETAL: Normal joints with no swelling. Muscle tone is normal. LABS: White count 31,000, hemoglobin 14.1, hematocrit 38.1. Sodium 118, potassium 4.3, BUN 12, creatinine 0.67, glucose 93. AST 59, ALT 41, alkaline phosphatase 121, total creatinine/kinase 393. CK-MB % is 1.6, troponin less than 0.01, protein 6.6, albumin 3.6. Procalcitonin 6.76. Respiratory panel was negative. Covid PCR is negative. Ferritin 548. ABGs on room air pH 7.57, pc02 25, p02 80, bicarb 22.9, total c02 23, base excess 0.9. DIAGNOSTICS: CT of the head was normal. CT of the C-spine shows no acute abnormality but severe degenerative disk disease with some old previous healing fractures. CT of the pelvis was also negative. CT of the chest showed multifocal bilateral ground glass infiltrates throughout both lungs most consistent with pneumonia. Consider Covid-19. Again the patient's PCR was negative. This is the third time he has been tested. Trace left pleural effusion. Mild bibasilar atelectasis, cardiomegaly. ASSESSMENT: 1. Hyponatremia 2. Bilateral pneumonia 3. Status post fall 4. Acute respiratory failure 5. Shortness of breath 6. Generalized weakness 7. Confusion PLAN: 1. We will admit. 2. Routine telemetry orders. 3. CBC, CMP daily. 4. Start NS at 100 cc/hr IV. 5. Ativan 1 mg t.i.d. 6. Librium 20 mg b.i.d. p.r.n. 7. Continue all other home medications. 8. Oxygen at 1 to 2L. 9. Again Covid was negative. 10. Blood culture times two. 11. UA with urine culture. 12. Will follow closely. TIME SPENT: More than 70 minutes. MTDD
[2020-07-02] MEDS: ZYLOPRIM PO SCH (09:10)
[2020-07-02] MEDS: DOXYCYCLINE HYCLATE PO SCH ×2 (09:10→20:10)
[2020-07-02] MEDS: LEVSIN PO SCH ×2 (09:10→20:10)
[2020-07-02] MEDS: ROCEPHIN 1 GM/50 ML D5W 1 GM/50 ML BAG IV SCH (09:10)
[2020-07-02] MEDS: BENICAR PO SCH (09:10)
[2020-07-02] MEDS: TOPROL XL PO SCH (09:10)
[2020-07-02] MEDS: PREDNISONE PO SCH (09:11)
[2020-07-02] MEDS: NORVASC PO SCH ×2 (09:11→20:10)
[2020-07-02] MEDS: K-DUR PO SCH ×2 (09:11→17:42)
[2020-07-02] MEDS: ASPIRIN EC PO SCH (09:11)
[2020-07-02] MEDS: MULTIVITAMIN TABLET PO SCH (09:11)
[2020-07-02] MEDS: THIAMINE IM SCH (09:11)
[2020-07-02] MEDS: LEXAPRO PO SCH (09:11)
[2020-07-02] MEDS: ATIVAN PO SCH ×3 (09:11→20:11)
[2020-07-02] MEDS: NON-FORMULARY MEDICATION (Coenzyme Q10 [Coq-10] 100 mg Capsule) PO SCH (09:12)
[2020-07-02 09:18] LABS: ABG BASE EXCESS 7.3 (-2.0-2.0); ABG HCO3 30.2 (22.0-26.0); ABG PH 7.52 (7.35-7.45); ABG TCO2 31.3 (22.0-28.0)
[2020-07-02 09:19] LABS: ABG OXYGEN SATURATION 92.9 % (95-100)
--- NOTE | 2020-07-02 09:35 | PCM.PROG ---
Attending Provider: ATTENDING PROVIDER: Dr. NICKY SALAZAR This patient is seen with Sonia Matos, Nurse Practitioner. DATE OF SERVICE: 07/02/20 SUBJECTIVE: This 70 year old /WHITE M was hospitalized 06/28/20. The patient is resting comfortably. Still short of breath with exertion. Sodium steadily improving. Still requiring O2. Both blood cultures are positive for e-coli. REVIEW OF SYSTEMS: CONSTITUTIONAL: No night sweats. No fatigue, malaise, lethargy. No fever or chills. Weakness. HEENT: Eyes: No visual changes. No eye pain. No eye discharge. ENT: No runny nose. No epistaxis. No sinus pain. No odynophagia. No congestion. RESPIRATORY: No cough, no congestion. No hemoptysis. Shortness of breath. CARDIOVASCULAR: No angina symptoms. No CHF symptoms. No atypical chest pain for CAD. No palpitations. No orthopnea.. GASTROINTESTINAL: No abdominal pain. No nausea or vomiting. No diarrhea or constipation. No hematemesis. No hematochezia. GENITOURINARY: No urgency. No frequency. No dysuria. No hematuria. No obstructive symptoms. No discharge. No pain. No significant abnormal bleeding. MUSCULOSKELETAL: No musculoskeletal pain; no joint swelling. NEUROLOGICAL: Awake, alert, oriented to time, place and person. No headache. No neck pain. No syncope. No seizures. No dizziness. PSYCHIATRIC: Not anxious. No depression. No suicidal thoughts. No homicidal thoughts. SKIN: No rash. No lesions. No wounds. ENDOCRINE: No unexplained weight loss. No weight gain. HEMATOLOGIC/LYMPHATIC: No anemia. No purpura. No petechiae. No prolonged or excessive bleeding. No palpable lymph nodes. PHYSICAL EXAMINATION: GENERAL: The patient is awake, alert and oriented, lying in bed in no distress. VITAL SIGNS: Temperature 97.4 F, Pulse 64, Respiratory Rate 20, BP 136/81, Pulse Ox 93% HEENT: Head normocephalic, atraumatic. Eyes: Extraocular muscles are intact. Pupils are equal, round and reactive to light and accommodation. Ears: No lesions. Nose appeared normal. Throat: No exudate or erythema. NECK: Supple. No JVD, no carotid bruit. No lymphadenopathy or thyromegaly. LUNGS: Diminished breath sounds. Clear to auscultation. Percussion note normal. Chest symmetrical. HEART: S1, S2, no S3. No murmurs. No cyanosis or clubbing. No ascites. Pulses: Dorsalis pedis and posterior tibial pulses +1 to +2 both sides. ABDOMEN: Soft. Non-tender. Bowel sounds active. No CVA tenderness. No mass felt. EXTREMITIES: No edema. Full range of motion of all extremities, equal. NEUROLOGIC: No focal deficit. Cranial nerves II through XII are grossly intact. No headache, no double vision or headache. SKIN: Not dry. Intact. Turgor-normal. LYMPHATIC: No palpable lymph nodes/no lymphedema. MUSCULOSKELETAL: Normal joints with no swelling. Muscle tone is normal. LAB REVIEW: 07/02/20 05:00 07/02/20 05:00 07/02/20 05:00: Sodium 127.2 L, Potassium 4.06, Chloride 94.5 L, Carbon Dioxide 27.5, Anion Gap 9.26, BUN 17.5, Creatinine 0.49 L, Estimated GFR (MDRD) 168.00, BUN/Creatinine Ratio 35.71, Glucose 74.5, Calcium 8.50, Total Bilirubin 0.86, AST 91.7 H, ALT 138.9 H D, Alkaline Phosphatase 91.8, Total Protein 5.91 L, Albumin 3.13 L, Globulin 2.78, Albumin/Globulin Ratio 1.12 07/02/20 05:00: WBC 23.72 H, RBC 3.90 L, Hgb 14.1, Hct 37.8 L, MCV 96.9 H, MCH 36.2 H, MCHC 37.3 H, RDW Coeff of Audrey 13.4, Plt Count 150, Neutrophils % (Manual) 88.0 H, Lymphocytes % (Manual) 2.0 L, Monocytes % (Manual) 8.0, Reactive Lymphocytes 2.0, Anisocytosis Not present 06/30/20 05:05: Thyroxine (T4) 3.2 L ASSESSMENT: Please see below. 1. Bilateral pneumonia 2. Hyponatremia 3. Acute respiratory failure, improved 4. Sepsis positive e-coli 5. Coronary artery disease 6. Hypertension PLAN: 1. Hold simvastatin 2. Continue IV fluids 3. Continue antibiotics 4. Repeat ABG 5. Echo Plan and coordination of the patient's care discussed in the presence of Potline Monitor and nurse. SCRIBED BY: ANNA LANG, Restorative Art Embalmer scribed while in presence of service performed by Dr. Salazar/Sonia Matos APRN on 07/02/20 ([id number])
[2020-07-02] MEDS: HUMULIN R SUBCUT PRN (20:12)
[2020-07-03] MEDS: SYNTHROID PO SCH (05:30)
[2020-07-03 05:57] LABS: HEMATOCRIT 40.3 % (42.0-52.0); MEAN CORPUSCULAR HEMOGLOBIN 35.9 pg (27.0-31.0); MEAN CORPUSCULAR HGB CONC 37.2 (31.8-35.4); MEAN CORPUSCULAR VOLUME 96.4 fl (80.0-94.0); PLATELET COUNT 188 10^3/uL (140-440); RDW COEFFICIENT OF VARIATION 13.3 % (11.6-14.8); RED BLOOD COUNT 4.18 10^6/ul (4.70-6.10); WHITE BLOOD COUNT 18.08 K/ul (4.2-10.2)
[2020-07-03 06:05] LABS: ANISOCYTOSIS NOT PRESENT (NOT PRESENT)
[2020-07-03 06:09] LABS: ALANINE AMINOTRANSFERASE 168.8 U/L (0-50); ALBUMIN 3.17 g/dL (3.5-5.0); ALKALINE PHOSPHATASE 93.8 U/L (56-119); ASPARTATE AMINO TRANSFERASE 81.1 U/L (17-59); BILIRUBIN,TOTAL 0.91 mg/dL (0.2-1.3); BLOOD UREA NITROGEN 15.2 mg/dL (9-20); CALCIUM 8.92 mg/dL (8.4-10.2); CARBON DIOXIDE 31.1 mmol/L (22-30.0); CHLORIDE 90.7 mmol/L (98-107); CREATININE 0.52 mg/dL (0.60-1.10); GLUCOSE 63.5 mg/dL (74-106); POTASSIUM 3.66 mmol/L (3.5-5.1); SODIUM 126.1 mmol/L (134.5-145); TOTAL PROTEIN 5.87 g/dL (6.3-8.2)
[2020-07-03] MEDS: ROCEPHIN 1 GM/50 ML D5W 1 GM/50 ML BAG IV SCH (09:14)
[2020-07-03] MEDS: BENICAR PO SCH (09:16)
[2020-07-03] MEDS: ZYLOPRIM PO SCH (09:16)
[2020-07-03] MEDS: PREDNISONE PO SCH (09:16)
[2020-07-03] MEDS: DOXYCYCLINE HYCLATE PO SCH ×2 (09:16→20:36)
[2020-07-03] MEDS: ASPIRIN EC PO SCH (09:16)
[2020-07-03] MEDS: K-DUR PO SCH ×2 (09:16→16:33)
[2020-07-03] MEDS: LEXAPRO PO SCH (09:17)
[2020-07-03] MEDS: ATIVAN PO SCH ×3 (09:17→20:36)
[2020-07-03] MEDS: TOPROL XL PO SCH (09:17)
[2020-07-03] MEDS: LEVSIN PO SCH ×2 (09:17→20:36)
[2020-07-03] MEDS: NORVASC PO SCH ×2 (09:17→20:35)
[2020-07-03] MEDS: MULTIVITAMIN TABLET PO SCH (09:18)
[2020-07-03] MEDS: THIAMINE IM SCH (09:20)
[2020-07-03] MEDS: NON-FORMULARY MEDICATION (Coenzyme Q10 [Coq-10] 100 mg Capsule) PO SCH (09:27)
--- NOTE | 2020-07-03 11:39 | DI ---
EXAM: Two views of the chest. History: Short of breath Comparison: Chest radiograph 06/30/2020 Findings: Heart is borderline enlarged. Sternotomy wires. Improved right lung infiltrates. Small bilateral pleural effusions are seen on the lateral view. No pneumothorax. No acute osseous abnorma lities. Degenerative changes of the spine. Impression: 1. Improved right lung infiltrates. 2. Small bilateral pleural effusions
[2020-07-03] MEDS: SODIUM CHLORIDE 1,000 ML IV SCH (16:54)
[2020-07-03] MEDS: HUMULIN R SUBCUT PRN (20:33)
[2020-07-04 05:25] LABS: ABG HCO3 26.5 (22.0-26.0); ABG PH 7.54 (7.35-7.45)
[2020-07-04 05:26] LABS: ABG TCO2 27.5 (22.0-28.0)
[2020-07-04 05:29] LABS: HEMATOCRIT 38.5 % (42.0-52.0); HEMOGLOBIN 14.3 g/dl (14.0-18.0); MEAN CORPUSCULAR HEMOGLOBIN 35.8 pg (27.0-31.0); MEAN CORPUSCULAR HGB CONC 37.1 (31.8-35.4); MEAN CORPUSCULAR VOLUME 96.3 fl (80.0-94.0); PLATELET COUNT 207 10^3/uL (140-440); RDW COEFFICIENT OF VARIATION 13.2 % (11.6-14.8); WHITE BLOOD COUNT 17.95 K/ul (4.2-10.2)
[2020-07-04 05:36] LABS: ALANINE AMINOTRANSFERASE 198.5 U/L (0-50); ALBUMIN 3.05 g/dL (3.5-5.0); ALKALINE PHOSPHATASE 89.7 U/L (56-119); ASPARTATE AMINO TRANSFERASE 88.8 U/L (17-59); BILIRUBIN,TOTAL 0.72 mg/dL (0.2-1.3); BLOOD UREA NITROGEN 14.8 mg/dL (9-20); CALCIUM 8.49 mg/dL (8.4-10.2); CARBON DIOXIDE 29.1 mmol/L (22-30.0); CHLORIDE 91.5 mmol/L (98-107); CREATININE 0.53 mg/dL (0.60-1.10); GLUCOSE 62.5 mg/dL (74-106); POTASSIUM 3.64 mmol/L (3.5-5.1); SODIUM 126.5 mmol/L (134.5-145); TOTAL PROTEIN 5.64 g/dL (6.3-8.2)
[2020-07-04] MEDS: SYNTHROID PO SCH (05:40)
[2020-07-04 05:52] LABS: ANISOCYTOSIS NOT PRESENT (NOT PRESENT)
[2020-07-04] MEDS: K-DUR PO SCH ×2 (08:39→17:23)
[2020-07-04] MEDS: BENICAR PO SCH (08:39)
[2020-07-04] MEDS: ROCEPHIN 1 GM/50 ML D5W 1 GM/50 ML BAG IV SCH (08:39)
[2020-07-04] MEDS: LEVSIN PO SCH ×2 (08:40→20:21)
[2020-07-04] MEDS: MULTIVITAMIN TABLET PO SCH (08:40)
[2020-07-04] MEDS: DOXYCYCLINE HYCLATE PO SCH ×2 (08:40→20:21)
[2020-07-04] MEDS: ASPIRIN EC PO SCH (08:40)
[2020-07-04] MEDS: ATIVAN PO SCH ×2 (08:41→14:06)
[2020-07-04] MEDS: TOPROL XL PO SCH (08:41)
[2020-07-04] MEDS: THIAMINE IM SCH (08:42)
[2020-07-04] MEDS: PREDNISONE PO SCH (08:42)
[2020-07-04] MEDS: ZYLOPRIM PO SCH (08:42)
[2020-07-04] MEDS: LEXAPRO PO SCH (08:42)
[2020-07-04] MEDS: NORVASC PO SCH ×2 (08:42→20:21)
--- NOTE | 2020-07-04 09:38 | PCM.PROG ---
Attending Provider: ATTENDING PROVIDER: Dr. NICKY SALAZAR This patient is seen with Sonia Matos, Nurse Practitioner. DATE OF SERVICE: 07/04/20 SUBJECTIVE: This 70 year old /WHITE M was hospitalized 06/28/20. The patient is resting comfortably. She had a spell in middle of the night and woke up confused, disoriented, anxious and rambling. Chest x-ray showed slight improvement. Sodium is stable. ABG this morning showed pO2 52. Speech still seems slurred this morning. REVIEW OF SYSTEMS: CONSTITUTIONAL: No night sweats. No fatigue, malaise, lethargy. No fever or chi lls. Weakness. HEENT: Eyes: No visual changes. No eye pain. No eye discharge. ENT: No runny nose. No epistaxis. No sinus pain. No odynophagia. No congestion. RESPIRATORY: Cough, no congestion. No hemoptysis. Shortness of breath. CARDIOVASCULAR: No angina symptoms. No CHF symptoms. No atypical chest pain for CAD. No palpitations. No orthopnea.. GASTROINTESTINAL: No abdominal pain. No nausea or vomiting. No diarrhea or constipation. No hematemesis. No hematochezia. GENITOURINARY: No urgency. No frequency. No dysuria. No hematuria. No obstructive symptoms. No discharge. No pain. No significant abnormal bleeding. MUSCULOSKELETAL: No musculoskeletal pain; no joint swelling. NEUROLOGICAL: Awake, alert, slight confusion. No headache. No neck pain. No syncope. No seizures. No dizziness. PSYCHIATRIC: Not anxious. No depression. No suicidal thoughts. No homicidal thoughts. SKIN: No rash. No lesions. No wounds. ENDOCRINE: No unexplained weight loss. No weight gain. HEMATOLOGIC/LYMPHATIC: No anemia. No purpura. No petechiae. No prolonged or excessive bleeding. No palpable lymph nodes. PHYSICAL EXAMINATION: GENERAL: The patient is awake, alert and oriented, lying in bed in no distress. VITAL SIGNS: Temperature 97.9 F, Pulse 62, Respiratory Rate 18, BP 144/84, Pulse Ox 95% HEENT: Head normocephalic, atraumatic. Eyes: Extraocular muscles are intact. Pupils are equal, round and reactive to light and accommodation. Ears: No lesions. Nose appeared normal. Throat: No exudate or erythema. NECK: Supple. No JVD, no carotid bruit. No lymphadenopathy or thyromegaly. LUNGS: Diminished breath sounds. Clear to auscultation. Percussion note normal. Chest symmetrical. HEART: S1, S2, no S3. No murmurs. No cyanosis or clubbing. No ascites. Pulses: Dorsalis pedis and posterior tibial pulses +1 to +2 both sides. ABDOMEN: Soft. Non-tender. Bowel sounds active. No CVA tenderness. No mass felt. EXTREMITIES: No edema. Full range of motion of all extremities, equal. No weakness of extremities. NEUROLOGIC: No focal deficit. Cranial nerves II through XII are grossly intact. No headache, no double vision or headache. SKIN: Not dry. Intact. Turgor-normal. LYMPHATIC: No palpable lymph nodes/no lymphedema. MUSCULOSKELETAL: Normal joints with no swelling. Muscle tone is normal. LAB REVIEW: 07/04/20 04:59 07/04/20 04:59 07/04/20 05:00: Puncture Site Rbrach, O2 Saturation 92.0 L, ABG pH 7.54 H*, ABG pCO2 31.0 L, ABG pO2 55.0 L*, ABG HCO3 26.5 H, ABG Total CO2 27.5, ABG Base Excess 4.0 H, Pranav Test +, FiO2 % 21.0 07/04/20 04:59: Sodium 126.5 L, Potassium 3.64, Chloride 91.5 L, Carbon Dioxide 29.1, Anion Gap 9.54, BUN 14.8, Creatinine 0.53 L, Estimated GFR (MDRD) 154.00, BUN/Creatinine Ratio 27.92, Glucose 62.5 L, Calcium 8.49, Total Bilirubin 0.72, AST 88.8 H, ALT 198.5 H, Alkaline Phosphatase 89.7, Total Protein 5.64 L, Albumin 3.05 L, Globulin 2.59, Albumin/Globulin Ratio 1.17 07/04/20 04:59: WBC 17.95 H, RBC 4.00 L, Hgb 14.3, Hct 38.5 L, MCV 96.3 H, MCH 35.8 H, MCHC 37.1 H, RDW Coeff of Audrey 13.2, Plt Count 207, Neutrophils % (Manual) 82.0 H, Band Neutrophils % 5.0, Lymphocytes % (Manual) 7.0 L, Monocytes % (Manual) 5.0, Eosinophils % (Manual) 1.0, Anisocytosis Not present ASSESSMENT: Please see below. 1. Bilateral pneumonia 2. Hyponatremia 3. Intermittent confusion 4. Alcohol abuse PLAN: 1. Three step O2 2. Discontinue sliding scale 3. Continue IV antibiotics 4. Carotid scan 5. Will discuss with Dr. Salazar possible MRI. Plan and coordination of the patient's care discussed in the presence of Branch Associate Teller and nurse. SCRIBED BY: Any HERNANDEZ scribed while in presence of service performed by Dr. Salazar/Sonia Matos APRN on 07/04/20 ([id number])
[2020-07-04] MEDS: NON-FORMULARY MEDICATION (Coenzyme Q10 [Coq-10] 100 mg Capsule) PO SCH (10:06)
--- NOTE | 2020-07-04 12:15 | US ---
EXAM: Bilateral carotid artery Doppler History: Slurred speech and confusion. Comparison: Carotid Doppler 08/28/2019 Technique: Multiple sonographic images through the bilateral internal carotid arteries were obtained . Color duplex Doppler was used to interrogate vascular flow. Findings: Limited evaluation due to body habitus and calcified shadowing vascular plaque. The right ICA peak systolic velocity is within normal limits measuring 89 cm/sec. The right ICA/cca PSV ratio is normal at 1.5. The right vertebral artery was not seen. Mild to moderate calcific plaq ue buildup within the right internal carotid artery new The left ICA peak systolic velocity is within normal limits measuring 88 cm/sec. The left ICA/cca PS V ratio is normal at 1.4. The left vertebral artery is patent and demonstrates antegrade flow. Mode rate calcific plaque buildup within the left internal carotid artery. Impression: The velocities and ratios indicate no significant hemodynamic stenosis of the bilateral i nternal carotid arteries. However, the calcified plaque makes evaluation difficult. Consider clarif ication with CTA of the neck.
--- NOTE | 2020-07-04 12:55 | PN ---
DATE OF SERVICE: 07/03/2020 SUBJECTIVE: 70 year old white male hospitalized with double pneumonia and had respiratory failure also had hyponatremia. The patient's condition has improved. His legs are shaky. His Ativan dose has been reduced to 0.25mg three times a day. REVIEW OF SYSTEMS: CONSTITUTIONAL: No night sweats. No fatigue, malaise, lethargy. No fever or chills. HEENT: Eyes: No visual changes. No eye pain. No eye discharge. ENT: No runny nose. No epistaxis. No sinus pain. No sore throat. No odynophagia. No congestion. RESPIRATORY: Mild cough and congestion. No hemoptysis. No shortness of breath. CARDIOVASCULAR: No angina symptoms. No CHF symptoms. No atypical chest pain for CAD. No palpitations. No PND. No orthopnea. GASTROINTESTINAL: No abdominal pain. No nausea or vomiting. No diarrhea or constipation. No hematemesis. No hematochezia. Appetite has improved. GENITOURINARY: No urgency. No frequency. No dysuria. No hematuria. No obstructive symptoms. No discharge. No pain. No significant abnormal bleeding. MUSCULOSKELETAL: No musculoskeletal pain; no joint swelling. NEUROLOGICAL: No headache. No neck pain. No syncope. No seizures. No dizziness. PSYCHIATRIC: Not anxious. No depression. No suicidal thoughts. No homicidal thoughts. SKIN: No rash. No lesions. No wounds. ENDOCRINE: No unexplained weight loss. No weight gain. HEMATOLOGIC/LYMPHATIC: No anemia. No purpura. No petechiae. No prolonged or excessive bleeding. No palpable lymph nodes. PHYSICAL EXAMINATION: VITAL SIGNS: Temperature 96.8, pulse 60, respiratory rate 18, blood pressure 160/97, pulse ox 95% HEENT: Head normocephalic, atraumatic. Eyes: Extraocular muscles are intact. Pupils are equal, round and reactive to light and accommodation. Ears: No lesions. Nose appeared normal. Throat: No exudate or erythema. NECK: Supple. No JVD, no carotid bruit. No lymphadenopathy or thyromegaly. LUNGS: Decreased breath sounds but clear to auscultation. Percussion note normal. Chest symmetrical. HEART: S1, S2, no S3. No murmurs. No cyanosis or clubbing. No ascites. Pulses: Dorsalis pedis and posterior tibial pulses +1 to +2 bilaterally. ABDOMEN: Soft. Nontender. Bowel sounds active. No CVA tenderness. No mass felt. EXTREMITIES: No edema. Full range of motion of all extremities, equal. NEUROLOGIC: No focal deficit. Cranial nerves II through XII are grossly intact. No headache, no double vision or headache. SKIN: Not dry. Intact. Turgor - normal. LYMPHATIC: No palpable lymph nodes/no lymphedema. MUSCULOSKELETAL: Normal joints with no swelling. Muscle tone is normal. LABS: Hgb 15, hct 40, WBC 18,000 normal differential, creatinine 0.5, BUN 15, potassium 3.6. Sodium 126.Chest x-ray showed increased infiltration on the right side. ASSESSMENT: 1. Pneumonia clinically seems to be resolving. Afebrile last 4-5 days. Appetite has improved. Oxygen saturation 93-97% on 2 liters. Mental status is normal. No DT's noted . PLAN: 1. Discharge the patient home tomorrow 2. The patient is going to be evaluated for need for home oxygen on room air in the morning 3. The patient had e-coli in the blood likely from pneumonia Again discussed with him about alcohol abuse. Strongly advised to quit alcohol. TIME SPENT: More than 30 minutes. Plan and coordination of the patient's care discussed in the presence of nurse. BRYAN
--- NOTE | 2020-07-04 13:15 | MRI ---
EXAM: MRI brain with and without contrast. Date: 07/04/2020 COMPARISON: CT brain 06/28/2020 and MRI brain 12/26/2019 HISTORY: Confusion. Rambling. Slurred speech. Symptoms this morning. TECHNIQUE: Routine MR images of the brain were obtained before and after the intravenous administrat ion of 15 mL of Dotarem via the left wrist IV FINDINGS: No intracranial mass, mass effect, hemorrhage, or abnormal extra-axial fluid collection. The ventricles and subarachnoid spaces are moderately enlarged. Normal flow voids of the major intra cranial arteries seen. No acute infarct on diffusion weighted imaging. There are periventricular a nd subcortical white matter T2 hyperintensities that are nonspecific and most likely represent small vessel disease. No pituitary, pineal, or cerebellopontine angle lesion seen. There is a large soft tissue pannus around the odontoid process, which is nonspecific and can be seen with rheumatoid arthr itis. This causes erosive changes of the odontoid process and severely narrows the foramen magnum an d central spinal canal at the C1 level. No cerebellar tonsillar ectopia. There has been bilateral c ataract removal. There is mild mucosal thickening in the maxillary and ethmoid sinuses. No fluid in the middle ear cavities or mastoid air cells. IMPRESSION: 1. No acute intracranial abnormality. 2. Small vessel disease. 3. Large soft tissue pannus around the odontoid process narrows the central spinal canal and the for amen magnum. This is nonspecific and can be seen with rheumatoid arthritis.
--- NOTE | 2020-07-04 13:56 | MRI ---
EXAM: Cervical spine MRI without and with contrast 07/04/2020 HISTORY: Status post fall, abnormal cervical spine CT. TECHNIQUE: MRI of the cervical spine was performed before and after the administration of 15 ml of D otarem contrast intravenously. COMPARISON: Cervical spine CT dated 06/28/2020. Cervical spine MRI dated 03/30/2018. FINDINGS: There is basilar invagination, with protrusion of the odontoid process to the foramen magnum causing mass effect on the cervicomedullary junction. This is new since cervical spine MRI dated 03/30/2018. This is secondary to the prominent erosive changes of the C1 and C2 lateral masses better visualize d on cervical spine CT dated 06/28/2020, which could be seen in rheumatoid arthritis, osteoarthritis or prior traumatic injury, among other entities. There is moderate spinal canal stenosis with mass effect on the spinal cord at the level of inferior C2 due to the adjacent C1-C2 findings. There is severe loss of disc height at C4-C5 through C6-C7, and T2-T3. There is mild grade 1 anterolisthesis at C4-C5. There is grade 1 anterolisthesis at C7-T1. Modic type 2 changes are noted in the opposing endplates at C4-C5, C6-C7, and T2-T3. There is no abnormal cord signal. Vertebral body heights are maintained. The paravertebral soft tissue are unremarkable. C2-C3: There are there is a small posterior disc-osteophyte complex without significant spinal canal stenosis. There is mild bilateral facet joint effusion. There is mild bilateral neural foraminal s tenosis. C3-C4: There is a small broad-based posterior disc-osteophyte complex. There is no significant spin al canal stenosis. There is bilateral uncovertebral and facet hypertrophy, with severe right and mod erate left neural foraminal stenosis. C4-C5: There is mild grade 1 anterolisthesis. There is a broad-based posterior disc-osteophyte comp sophia and bilateral ligamentum flavum hypertrophy, contributing to moderate spinal canal stenosis. The re is left facet and uncovertebral hypertrophy, with severe left neural foraminal stenosis. C5-C6: There is a broad-based posterior disc-osteophyte complex and bilateral ligamentum flavum hype rtrophy, contributing to mild spinal canal stenosis. There is bilateral uncovertebral and facet hype rtrophy, with moderate right and severe left neural foraminal stenosisC6-C7: There is a broad-based posterior disc-osteophyte complex and bilateral ligamentum flavum hypertrophy, contributing to modera te spinal canal stenosis. There is bilateral uncovertebral and facet hypertrophy, with severe bilate ral neural foraminal stenosis.C7-T1: There is mild grade 1 anterolisthesis. There is a broad-based posterior disc-osteophyte complex. There is bilateral ligamentum flavum hypertrophy, contributing to mild spinal canal stenosis. There is bilateral facet hypertrophy, with severe right and moderate le ft neural foraminal stenosis. Posterior disc-osteophyte complex and facet hypertrophy is noted at T2-T3, with moderate right and mi ld left neural foraminal stenosis. IMPRESSION: 1. 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 This is secondary to the prominent erosive changes of the C1 and C2 lateral masses better visualized on cervical spine CT dated 020, which could be seen in rheumatoid arthritis, osteoarthritis or prior traumatic injury, among oth er entities. 2. Moderate spinal canal stenosis with mass effect on the spinal cord at the level of inferior C2 due to the adjacent C1-C2 erosive/degenerative changes. 3. Multilevel degenerative changes of the cervical spine as detailed above, with moderate spinal kael l stenosis at C4-C5 and C6-C7. Mild spinal canal stenosis at C2-C3, C5-C6 and C7-T1. 4. Multilevel bilateral moderate to severe neural foraminal stenosis as detailed above level by level .
[2020-07-04] MEDS: NORCO 7.5-325 PO PRN (17:23)
[2020-07-05 05:45] LABS: ALANINE AMINOTRANSFERASE 298.7 U/L (0-50); ALBUMIN 3.24 g/dL (3.5-5.0); ALKALINE PHOSPHATASE 94.7 U/L (56-119); ASPARTATE AMINO TRANSFERASE 144.8 U/L (17-59); BILIRUBIN,TOTAL 0.58 mg/dL (0.2-1.3); BLOOD UREA NITROGEN 20.8 mg/dL (9-20); CALCIUM 8.75 mg/dL (8.4-10.2); CARBON DIOXIDE 24.8 mmol/L (22-30.0); CHLORIDE 92.7 mmol/L (98-107); CREATININE 0.55 mg/dL (0.60-1.10); GLUCOSE 75.1 mg/dL (74-106); POTASSIUM 3.9 mmol/L (3.5-5.1); SODIUM 124.6 mmol/L (134.5-145); TOTAL PROTEIN 5.94 g/dL (6.3-8.2)
[2020-07-05] MEDS: NORCO 7.5-325 PO PRN ×2 (05:52→10:57)
[2020-07-05] MEDS: SYNTHROID PO SCH (05:53)
[2020-07-05 06:09] LABS: HEMATOCRIT 40.2 % (42.0-52.0); MEAN CORPUSCULAR HEMOGLOBIN 36.1 pg (27.0-31.0); MEAN CORPUSCULAR HGB CONC 37.3 (31.8-35.4); MEAN CORPUSCULAR VOLUME 96.6 fl (80.0-94.0); PLATELET COUNT 229 10^3/uL (140-440); RDW COEFFICIENT OF VARIATION 13.3 % (11.6-14.8); RED BLOOD COUNT 4.16 10^6/ul (4.70-6.10); WHITE BLOOD COUNT 17.25 K/ul (4.2-10.2)
[2020-07-05 06:24] LABS: ANISOCYTOSIS NOT PRESENT (NOT PRESENT)
[2020-07-05 08:44] LABS: ABG PH 7.51 (7.35-7.45)
[2020-07-05 08:45] LABS: ABG BASE EXCESS 4.9 (-2.0-2.0); ABG HCO3 27.9 (22.0-26.0); ABG OXYGEN SATURATION 92.7 % (95-100)
--- NOTE | 2020-07-05 08:57 | PCM.PROG ---
Attending Provider: ATTENDING PROVIDER: Dr. NICKY SALAZAR DATE OF SERVICE: 07/05/20 SUBJECTIVE: This 70 year old /WHITE M was hospitalized 06/28/20 with double pneumonia likely aspiration with e-coli sepsis. The patient's condition has improved remarkably. Speech is normal. He has been up and about with no difficulty. A lot of probably could have been from alcohol withdraw and Ativan that was given for restlessness which has been taken off at least at night time. The patient is oriented to time, place and person. Up and about oxygen is more than 90% on room air. The patient will have a repeat chest x-ray and ABG. REVIEW OF SYSTEMS: CONSTITUTIONAL: No night sweats. No fatigue, malaise, lethargy. No fever or chills. HEENT: Eyes: No visual changes. No eye pain. No eye discharge. ENT: No runny nose. No epistaxis. No sinus pain. No odynophagia. No congestion. RESPIRATORY: No cough, no congestion. No hemoptysis. No shortness of breath. CARDIOVASCULAR: No angina symptoms. No CHF symptoms. No atypical chest pain for CAD. No palpitations. No orthopnea.. GASTROINTESTINAL: No abdominal pain. No nausea or vomiting. No diarrhea or constipation. No hematemesis. No hematochezia. GENITOURINARY: No urgency. No frequency. No dysuria. No hematuria. No obstructive symptoms. No discharge. No pain. No significant abnormal bleeding. MUSCULOSKELETAL: No musculoskeletal pain; no joint swelling. NEUROLOGICAL: Awake, alert, oriented to time, place and person. No headache. No neck pain. No syncope. No seizures. No dizziness. PSYCHIATRIC: Not anxious. No depression. No suicidal thoughts. No homicidal thoughts. SKIN: No rash. No lesions. No wounds. ENDOCRINE: No unexplained weight loss. No weight gain. HEMATOLOGIC/LYMPHATIC: No anemia. No purpura. No petechiae. No prolonged or excessive bleeding. No palpable lymph nodes. PHYSICAL EXAMINATION: GENERAL: The patient is awake, alert and oriented, lying in bed in no distress. VITAL SIGNS: Temperature 98.0 F, Pulse 60, Respiratory Rate 18, BP 139/87, Pulse Ox 97% HEENT: Head normocephalic, atraumatic. Eyes: Extraocular muscles are intact. Pupils are equal, round and reactive to light and accommodation. Ears: No lesions. Nose appeared normal. Throat: No exudate or erythema. NECK: Supple. No JVD, no carotid bruit. No lymphadenopathy or thyromegaly. LUNGS: Better air entry more on right than left with few crepitations. Clear to auscultation. Percussion note normal. Chest symmetrical. HEART: S1, S2, no S3. No murmurs. No cyanosis or clubbing. No ascites. Pulses: Dorsalis pedis and posterior tibial pulses +1 to +2 both sides. ABDOMEN: Soft. Non-tender. Bowel sounds active. No CVA tenderness. No mass felt. EXTREMITIES: No edema. Full range of motion of all extremities, equal. NEUROLOGIC: No focal deficit. Cranial nerves II through XII are grossly intact. No headache, no double vision or headache. SKIN: Warm and dry. Intact. Turgor-normal. LYMPHATIC: No palpable lymph nodes/no lymphedema. MUSCULOSKELETAL: Normal joints with no swelling. Muscle tone is normal. The patient has mild discomfort in neck area as usual with no localized tenderness. LAB REVIEW: 07/05/20 05:20 07/05/20 05:20 07/05/20 05:20: Sodium 124.6 L, Potassium 3.90, Chloride 92.7 L, Carbon Dioxide 24.8, Anion Gap 11.00, BUN 20.8 H, Creatinine 0.55 L, Estimated GFR (MDRD) 147.00, BUN/Creatinine Ratio 37.81, Glucose 75.1, Calcium 8.75, Total Bilirubin 0.58, AST 144.8 H D, ALT 298.7 H D, Alkaline Phosphatase 94.7, Total Protein 5. 94 L, Albumin 3.24 L, Globulin 2.70, Albumin/Globulin Ratio 1.20 07/05/20 05:20: WBC 17.25 H, RBC 4.16 L, Hgb 15.0, Hct 40.2 L, MCV 96.6 H, MCH 36.1 H, MCHC 37.3 H, RDW Coeff of Audrey 13.3, Plt Count 229, Neutrophils % (Manual) 73.0, Band Neutrophils % 5.0, Lymphocytes % (Manual) 11.0, Monocytes % (Manual) 9.0, Eosinophils % (Manual) 2.0, Anisocytosis Not present ASSESSMENT: Please see below. 1. Bilateral pneumonia with respiratory failure, resolved 2. Hyponatremia persistent which the patient has chronic hyponatremia. Advised to drink less fluids PLAN: 1. PT evaluation for gait which I think is normal 2. The patient is to be seen by Dr. Roberts as an outpatient as indicated by him on the phone 3. The patient is not to drive until further orders 4. The patient is high risk for falls and every time he has fallen he has had a lot of alcohol consumption. Strongly advised to quit. He understands the seriousness of his chronic neck condition and what could happen with fall. No evidence of DTs. 5. Pneumonia clinically seems to be resolving. 6. The daughter has been informed about all this and the patient lives by himself with monitoring by daughter. Home Health arrangements are going to be made. 7. Strongly advised to wear C Collar and observe the fall risks and not drink alcohol. Plan and coordination of the patient's care discussed in the presence of Guest Services Director and nurse. CONDITION: Stable SCRIBED BY: Any HERNANDEZ scribed while in presence of service performed by Dr. NICKY SALAZAR on 07/05/20 ([id number])
[2020-07-05] MEDS: BENICAR PO SCH (10:21)
[2020-07-05] MEDS: ASPIRIN EC PO SCH (10:21)
[2020-07-05] MEDS: ZYLOPRIM PO SCH (10:21)
[2020-07-05] MEDS: DOXYCYCLINE HYCLATE PO SCH ×2 (10:22→20:55)
[2020-07-05] MEDS: K-DUR PO SCH ×2 (10:22→16:54)
[2020-07-05] MEDS: LEVSIN PO SCH ×2 (10:22→20:55)
[2020-07-05] MEDS: LEXAPRO PO SCH (10:22)
[2020-07-05] MEDS: TOPROL XL PO SCH (10:22)
[2020-07-05] MEDS: MULTIVITAMIN TABLET PO SCH (10:23)
[2020-07-05] MEDS: ATIVAN PO SCH ×2 (10:23→20:54)
[2020-07-05] MEDS: THIAMINE IM SCH (10:23)
[2020-07-05] MEDS: PREDNISONE PO SCH (10:23)
[2020-07-05] MEDS: NORVASC PO SCH ×2 (10:24→20:55)
[2020-07-05] MEDS: ROCEPHIN 1 GM/50 ML D5W 1 GM/50 ML BAG IV SCH (10:24)
[2020-07-05] MEDS: ZOCOR PO SCH (10:51)
--- NOTE | 2020-07-05 10:59 | US ---
EXAM: Ultrasound abdomen limited. HISTORY: Elevated liver function tests. COMPARISON: CT 06/25/2016. TECHNIQUE: Abdominal, real time with image documentation: limited (eg, single organ, quadrant, foll ow-up) FINDINGS: The liver demonstrates homogeneous echotexture without intrahepatic biliary dilatation. P ortal venous flow is normal in direction. The gallbladder is without shadowing stones, wall thickeni ng or pericholecystic fluid. Common duct measures approximately 0.5 cm. Visualized portions of the pancreas are unremarkable. IMPRESSION: No sonographic abnormality of the liver, gallbladder or biliary system.
[2020-07-05] MEDS: NON-FORMULARY MEDICATION (Coenzyme Q10 [Coq-10] 100 mg Capsule) PO SCH (11:05)
--- NOTE | 2020-07-05 11:35 | DI ---
EXAM: CHEST FRONTAL AND LATERAL VIEWS HISTORY: Cough and shortness of breath. COMPARISON: 07/03/2020 FINDINGS: Cardiomegaly, sternotomy wires and atherosclerotic disease are again noted. No acute infi ltrates are seen. No vascular congestion. There is no consolidation, visible pleural fluid or pneum othorax. Bones reveal no acute fracture. IMPRESSION: No acute cardiopulmonary process.
--- NOTE | 2020-07-05 11:38 | US ---
EXAM: Ultrasound abdomen limited. HISTORY: Elevated liver function tests. Evaluate spleen. COMPARISON: CT 06/25/2016. TECHNIQUE: Abdominal, real time with image documentation: limited (e.g., single organ, quadrant, fo llow-up) FINDINGS: The spleen is homogeneous measuring 9.4 x 3.3 x 9.3 cm. No adjacent fluid identified.. IMPRESSION: No sonographic abnormality of the spleen.
--- NOTE | 2020-07-05 13:35 | PN ---
DATE OF SERVICE: 07/05/20 SUBJECTIVE: CONVERSATION NOTE: Marge Padilla this morning I returned her call. I talked to her about her dad, Sukhdeep Urbina. I talked to Sukhdeep Urbina about conversations with Marge and he was OK with it. Discussed Sukhdeep's heal in the hospital. The patient's condition is improving. His oxygen level is 59 with saturation 92% on room air. There is remarkable improvement in his pneumonia and not running any fever. I discussed with her he is up and about. His speech is fluent ever since yesterday afternoon. He has been taken off Ativan at night that was making him slurred in the morning hours. His gait is practically normal. Last night he walked around. This morning he is walking around with no ataxia. Also discussed with her about being on C-collar because of his MRI report. That seems to be chronic but deteriorated over last two years. Also discussed with her that the patient is to be seen by Dr. Roberts as outpatient. Also had mentioned that the Nurse Practitioner had a talk with Dr. Calles, Dr. Cox and Dr. Roberts yesterday. Dr. Roberts agreed to see him an outpatient. Dr. Calles didn't want to do anything with Sukhdeep as he doesn't do any surgery higher up then C3. Dr. Cox was reluctant because of the delicate surgery it requires. I explained to the daughter that the patient's medical status is not stable with the hyponatremia with possibility of left ventricular failure with bilateral pneumonia. He has history of coronary bypass surgery also alcoholism with abnormal liver was discussed with her. I talked to her about having falls especially after he drinks and how dangerous it is for him to fall with back problems. The patient has been made aware of it. The patient is extremely intelligent. Neurological status is stable. He doesn't have any DT's. He is going to have a liver ultrasound and discussed with the daughter and very likely he would be discharged tomorrow with Home Health Care to follow him. He is not to drive advised by Dr. Roberts and cervical collar. Explained to her that his prognosis is guarded. He needs to change his lifestyle. TIME SPENT: More than 30 minutes. Plan and coordination of the patient's care discussed in the presence of nurse. BRYAN
--- NOTE | 2020-07-05 15:25 | RS.PTINEVL ---
Subjective - Patient information Date of Evaluation: 07/05/20 Date of Arrival on Unit: 06/29/20 Admitted From:: Home Diagnosis: Fall at home, pneumonia, hyponatremia Usual Living Arrangement: Alone Home Environment: House, Stairs (few), Rail Medical History: Hypertension, Cancer (prostate) Medical History Comments:: MA, DDD, CAD, alcohol abuse, depression, anxiety, gout, severe DJD, cervical radiculopathy, severe DJD. Cervical MRI: 1. 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 This is secondary to the prominent erosive changes of the C1 and C2 lateral masses better visualized on cervical spine CT dated 06/28/2020, which could be seen in rheumatoid arthritis, osteoarthritis or prior traumatic injury, among other entities. 2. Moderate spinal canal stenosis with mass effect on the spinal cord at the level of inferior C2 due to the adjacent C1-C2 erosive/degenerative changes. 3. Multilevel degenerative changes of the cervical spine as detailed above, with moderate spinal canal stenosis at C4-C5 and C6-C7. Mild spinal canal stenosis at C2-C3, C5-C6 and C7-T1. 4. Multilevel bilateral moderate to severe neural foraminal stenosis as detailed above level by level. . . LATEX ALLERGY?: No Surgical History: CABG Surgical History Comments:: prostatectomy, heart stents Medications: see chart Subjective Information/ Patient Comments:: pt states that his neck has been broken forever, states that he just wants to go home. pt states he will use the oxygen, however has to get out to go to work. - Level of function Prior to this admission, the patient could do the following:: Independent Selfcare, Independent ADL's, Independent Ambulation Current Level of Function: Partially Dependent Current Equipment Used at Home: cpap, walker Pain Assessement - Location cervical spine Description: Radiating, Aching Pain Aggravating Factors: Changing Position Interventions - Objective Patient Orientation: Person, Place, Time, Situation Current Interventions: Oxygen, Telemetry Observation: pt seen supine in bed without cervical collar in place. Assisted pt with putting on collar prior to ambulation. Range of Motion - ROM Right Upper Extremity AROM: WFL's Left Upper Extremity AROM: WFL's Right Lower Extremity AROM: WFL's Left Lower Extremity AROM: WFL's Muscle Strength - Muscle Strength Right Upper Extremity Strength: Mild Weakness Left Upper Extremity Strength: Mild Weakness Right Lower Extremity Strength: Mild Weakness (4+/5) Left Lower Extremity Strength: Mild Weakness (4+/5) Palpation Palpation Findings: Tenderness Comments:: cervical spine Balance - Sitting Balance and Reactions Static Sitting Balance: Good Dynamic Sitting Balance: Fair (fair+) - Standing Balance and Reactions Static Standing Balance: Fair (fair +) Dynamic Standing Balance: Fair Functional Mobility - Bed Mobility Supine to Sit: Supervision Sit to Supine: Supervision - Transfers Sit to Stand: Supervision Stand to Sit: Supervision - Safety Awareness Safety Awareness: Fair REBA INDEX SCORE: n/a Ambulation - Ambulation Assistive Device Used: No Assistive Device Orthotic/Prosthetic Device: No Distance: 120ft Assistance needed with Ambulation: CGA Quality of Ambulation: with O2 Factors Affecting Ambulation: Decreased Safety Treatment time - Time with patient Length of Evaluation: 21 Total treatment time: 25 Patient Education - Education Patient Education: Home Exercise Program, Education of Plan of Care Teaching Recipient: Patient Teaching Methods: Discussion Assessment - Assessment Problem List:: Decreased level of function, Requires training/education, Decreased safety/Risk of falls, Weakness, Pain limits previous level of function Rehab Potential: Fair Further Therapy Indicated?: No Candidate for Swing Bed for Therapy Services?: Feel pt is not a candidate for swing bed due to high functional level Comments: Feel pt would benefit from nursing to amb with patient in hallway to assist with O2. Feel pt does not require skilled PT due to high functional level and h/o noncompliance. Evaluation Complexity: HISTORY: Medium, EXAM OF BODY SYSTEMS: Medium, CLINICAL PRESENTATION: Medium, CLINICAL DECISION MAKING: Medium Patient's Goal(s): Go home Plan Other:: eval only Frequency of Treatment: One time treatment Duration of Treatment: One Time Treatment Anticipated Discharge Destination: Home Treatment Diagnosis (ICD 10 Codes): M62.81 weakness Has the Physician been added for Co-signature?: Yes
[2020-07-06 05:11] VITALS: BP 124/72; TEMP 97.5
[2020-07-06 05:26] LABS: HEMATOCRIT 37.7 % (42.0-52.0); HEMOGLOBIN 13.9 g/dl (14.0-18.0); MEAN CORPUSCULAR HEMOGLOBIN 35.6 pg (27.0-31.0); MEAN CORPUSCULAR HGB CONC 36.9 (31.8-35.4); MEAN CORPUSCULAR VOLUME 96.7 fl (80.0-94.0); PLATELET COUNT 252 10^3/uL (140-440); RDW COEFFICIENT OF VARIATION 13.4 % (11.6-14.8); WHITE BLOOD COUNT 17.35 K/ul (4.2-10.2)
[2020-07-06 05:34] LABS: ANISOCYTOSIS NOT PRESENT (NOT PRESENT)
[2020-07-06 05:44] LABS: ALANINE AMINOTRANSFERASE 337.6 U/L (0-50); ALBUMIN 3.14 g/dL (3.5-5.0); BILIRUBIN,TOTAL 0.39 mg/dL (0.2-1.3); CALCIUM 8.94 mg/dL (8.4-10.2); CHLORIDE 92.5 mmol/L (98-107); CREATININE 0.48 mg/dL (0.60-1.10); GLUCOSE 108.6 mg/dL (74-106); POTASSIUM 3.83 mmol/L (3.5-5.1); SODIUM 125.7 mmol/L (134.5-145); TOTAL PROTEIN 5.68 g/dL (6.3-8.2)
[2020-07-06] MEDS: SYNTHROID PO SCH (06:08)
[2020-07-06] MEDS: BENICAR PO SCH (08:51)
[2020-07-06] MEDS: DOXYCYCLINE HYCLATE PO SCH (08:51)
[2020-07-06] MEDS: TOPROL XL PO SCH (08:52)
[2020-07-06] MEDS: ASPIRIN EC PO SCH (08:52)
[2020-07-06] MEDS: LEVSIN PO SCH (08:52)
[2020-07-06] MEDS: ATIVAN PO SCH (08:52)
[2020-07-06] MEDS: LEXAPRO PO SCH (08:52)
[2020-07-06] MEDS: ZYLOPRIM PO SCH (08:52)
[2020-07-06] MEDS: THIAMINE IM SCH (08:53)
[2020-07-06] MEDS: ZOCOR PO SCH (08:53)
[2020-07-06] MEDS: MULTIVITAMIN TABLET PO SCH (08:53)
[2020-07-06] MEDS: K-DUR PO SCH (08:53)
[2020-07-06] MEDS: NORVASC PO SCH (08:53)
[2020-07-06] MEDS: PREDNISONE PO SCH (08:53)
[2020-07-06] MEDS: ROCEPHIN 1 GM/50 ML D5W 1 GM/50 ML BAG IV SCH (08:54)
[2020-07-06] MEDS: NON-FORMULARY MEDICATION (Coenzyme Q10 [Coq-10] 100 mg Capsule) PO SCH (09:41)
[2020-07-06] MEDS: NORCO 7.5-325 PO PRN (11:13)
--- NOTE | 2020-07-08 08:33 | PN ---
DATE OF SERVICE: 07/01/20 SUBJECTIVE: The patient was seen and examined with the nurse practitioner. The patient is being treated for atypical pneumonia likely aspiration. Escherichia Coli were found on the blood cultures, source very difficulty to ascertain. In any case, the patient is being treated with Doxycycline and Rocephin; the E.coli are sensitive to both of them. Overall clinical status improvement. TIME SPENT: More than 30 minutes. Plan and coordination of the patient's care discussed in the presence of nurse. BRYAN
--- NOTE | 2020-07-08 09:42 | PN ---
DATE OF SERVICE: 07/06/20-DISCHARGE NOTE SUBJECTIVE: 70-year-old white male hospitalized with bilateral pneumonia, likely aspiration, E.coli, sepsis, septicemia, hyponatremia and alcohol withdrawals. The patient's condition has settled down for 2 1/2 days. Speech has been fluent. He is oriented to time, place and person. He is not mumbling anymore. He is complaining of mild cough. Appetite has improved. REVIEW OF SYSTEMS: CONSTITUTIONAL: Speech is much better. No night sweats. No fatigue, malaise, lethargy. No fever or chills. HEENT: Eyes: No visual changes. No eye pain. No eye discharge. ENT: No runny nose. No epistaxis. No sinus pain. No sore throat. No odynophagia. No congestion. RESPIRATORY: Mild cough. No hemoptysis. No shortness of breath. CARDIOVASCULAR: No angina symptoms. No CHF symptoms. No atypical chest pain for CAD. No palpitations. No PND. No orthopnea. GASTROINTESTINAL: Appetite has improved. No abdominal pain. No nausea or vomiting. No diarrhea or constipation. No hematemesis. No hematochezia. GENITOURINARY: No urgency. No frequency. No dysuria. No hematuria. No obstructive symptoms. No discharge. No pain. No significant abnormal bleeding. MUSCULOSKELETAL: Pain as usual which is rated as 1:4 on a scale of 1:10. He says if he takes medicine it helps him a lot. He has been taking it for several years. NEUROLOGICAL: No headache. No neck pain. No syncope. No seizures. No dizziness. He is ambulating on his own with no falls. PSYCHIATRIC: Not anxious. No depression. No suicidal thoughts. No homicidal thoughts. SKIN: No rash. No lesions. No wounds. ENDOCRINE: No unexplained weight loss. No weight gain. HEMATOLOGIC/LYMPHATIC: No anemia. No purpura. No petechiae. No prolonged or excessive bleeding. No palpable lymph nodes. PHYSICAL EXAMINATION: GENERAL: The patient is oriented to time, place and person. VITAL SIGNS: Temperature 97.5, pulse 60, respiratiory rate 18, blood pressure 124/72, pulse ox 97% on room air. HEENT: Head normocephalic, atraumatic. Eyes: Extraocular muscles are intact. Pupils are equal, round and reactive to light and accommodation. Ears: No lesions. Nose appeared normal. Throat: No exudate or erythema. NECK: Supple. No JVD, no carotid bruit. No lymphadenopathy or thyromegaly. LUNGS: Decreased breath sounds but clear to auscultation. Percussion note normal. Chest symmetrical. HEART: S1, S2, no S3. No murmurs. No cyanosis or clubbing. No ascites. Pulses: Dorsalis pedis and posterior tibial pulses +1 to +2 bilaterally. ABDOMEN: Soft. Nontender. Bowel sounds active. No CVA tenderness. No mass felt. EXTREMITIES: No edema. Full range of motion of all extremities, equal. NEUROLOGIC: No focal deficit. Cranial nerves II through XII are grossly intact. No headache, no double vision or headache. SKIN: Not dry. Intact. Turgor - normal. LYMPHATIC: No palpable lymph nodes/no lymphedema. MUSCULOSKELETAL: Normal joints with no swelling. Muscle tone is normal. LABS: Hemoglobin 13.9, hematocrit 37, WBC 17,000, normal differential. Creatinine 0.4, BUN 18, potassium 3.8. Sodium 126. ASSESSMENT: 1. BILATERAL PNEUMONIA, CLINICALLY SEEMS TO HAVE BEEN RESOLVING. LUNGS HAVE DECREASED BREATH SOUNDS BILATERALLY WITH GOOD AIR ENTRY BETTER THAN BEFORE. 2. HYPONATREMIA SEEMS TO BE IMPROVING. STRONGLY ADVISED NOT TO DRINK TOO MUCH FLUID. ALSO TO DISCONTINUE ALCOHOL. BEER IN EXCESS COULD BE CAUSING HYPONATREMIA. 3. ALCOHOL WITHDRAWAL HAS SUBSIDED. NO DT'S NOTED. PATIENT'S OVERALL STATUS HAS IMPROVED. 4. ALCOHOLIC HEPATITIS, ABNORMAL LIVER PROFILE. THE PATIENT HAS BOUTS OF ALCOHOL HEPATITIS AND HE UNDERSTANDS THAT ULTRASOUND OF THE ABDOMEN DID NOT SHOW ANY ACUTE FINDINGS. FOLLOWUP ON LIVER PROFILE AN OUTPATIENT ALONG WITH SERUM SODIUM. PATIENT UNDERSTANDS THAT COMPLICATION OF LIVER CIRRHOSIS WHICH IS THERE. 5. 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 THE PATIENT'S NEUROLOGICAL STATUS IS ENTIRELY NORMAL. HE IS NONTENDER AT CERVICAL AREA. PLAN: 1. Home oxygen 2L/cannula/minute. The patient is strongly advised to use oxygen as much as he could. 2. The patient admitted to not wearing CPAP and putting it on the side. I strongly advised to start wearing CPAP. He has obstructive sleep apnea. 3. Wear C-collar. 4. Fall risk discussed. The patient is high risk for fall with the alcoholism. He has fallen at night every time he had excess alcohol on the previous evening. 5. No driving until cleared by neurologist. 6. [place] will be reduced to one a day 7.5/325 mg 1/2 to one tablet p.r.n. for pain. Advised not to mix with [id number] medications or alcohol. 7. Diclofenac to be continued with meals. 8. Protonix is added because of Diclofenac and alcohol 40 mg q.a.m. 9. Advised to continue the rest of the medication as before. 10. Keflex 500 mg t.i.d. for 7 days. 11. Use walker especially at night. 12. The patient is to be seen on Wednesday a.m. at 10 o'clock. The patient understands the risk of fall and how to prevent falls and instructed about this in the past. The risk of fracturing cervical spine, discussed this with him. The patient is highly intelligent. He is noncompliant of lifestyle and recommendations. He has agreed and in the past periods of 4 to 6 months of not drinking at all. He has been advised to start cardiac rehab. The patient's daughter was called and again discussed at length about his overall condition. He is going to need a lot of help and will do her best. Pneumonia discussed. Alcohol abuse discussed. Discussed about his cervical osteoarthritis and odontoid process erosion and he is going to be seen by Dr. Hawthorne possibly next week. He understands about wearing oxygen and CPAP and to arrange the house where the risk of falling is less. As mentioned in earlier notes, Dr. Man's office was called to get an appointment for him to be seen as soon as possible. Dr. Man indicated at that time there was no need for him to be seen earlier as the problem he has is chronic and the appointment was given to be seen in September. Sukhdeep is on standby for any cancellation. I had a talk with Dr. Hawthorne and I indicated that the patient was seen by him a couple of years ago and was followed by him for awhile for cervical osteoarthritis. Dr. Hawthorne has agreed to see him this coming week on Wednesday. A call will be made for Sukhdeep to get an appointment with Dr. Hawthorne and then will be able to refer Dr. Silva or Dr. Man sooner than otherwise. The patient is not to drive until released by neurologist. Addendum on 07/07/20 at 3:55 p.m.: The patient was called today from the nursing staff, discontinuing the statin. His liver profile was abnormal at the time of discharge from very likely hepatitis coming from alcohol. TIME SPENT: More than 30 minutes. Plan and coordination of the patient's care discussed in the presence of nurse. BRYAN
--- NOTE | 2020-07-08 10:26 | DS ---
DATE OF SERVICE: 07/06/20 FINAL DIAGNOSIS: 1. BILATERAL PNEUMONIA, LIKELY ASPIRATION. COVID-19 NEGATIVE. 2. HYPONATREMIA. 3. ALCOHOL ABUSE. 4. 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 5. ALCOHOLIC HEPATITIS. 6. SEPSIS FROM E.COLI, WHICH WAS SENSITIVE TO ROCEPHIN. 7. SEPTICEMIA 8. NONCOMPLIANCE OF DIET, LIFESTYLE, MEDICATIONS AND FOLLOWUP. 9. HISTORY OF NEAR SYNCOPE WITH FALLS. 10. HYPERTENSION. 11. HISTORY OF SYSTOLIC MURMUR. 12. LV DYSFUNCTION. 13. DEGENERATIVE DISK DISEASE OF THE C-SPINE, L-SPINE. 14. METABOLIC SYNDROME. 15. CERVICAL RRENKIFL0MPSTS. 16. DYSLIPIDEMIA 17. CORONARY ARTERY DISEASE WITH STENT. 18. HYPERTENSION. 19. LVH. 20. 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 21. SLEEP APNEA, SUPPOSED TO WEAR CPAP. 22. ELEVATED LIVER FUNCTION. 23. DEPRESSION. 24. HISTORY OF ANGIOEDEMA. 25. ALCOHOLIC CIRRHOSIS. DISCHARGE INSTRUCTIONS: 1. Followup appointment Thursday, July 09, 2020 at 10 a.m. 2. Home oxygen 2L/cannula/min. Strongly advised to use as much as he can. 3. Use walker especially at night. 4. No driving until cleared by neurologist. 5. Wear CPAP. 6. Advised not to mix [id number] medications or alcohol. MEDICATIONS AT DISCHARGE: Allopurinol 400 mg p.o. daily Amlodipine (Norvasc) 5 mg p.o. b.i.d. Aspirin 81 mg p.o. daily with meal Coenzyme Q10 100 mg p.o. daily Diclofenac 75 mg p.o. daily Escitalopram (Lexapro) 10 mg p.o. daily Hydrocodone-Acetaminophen 7.5-325 mg one tab p.o. b.i.d. p.r.n. Hyoscyamine Sulfate 0.125 mg p.o. b.i.d. Levothyroxine (Synthroid) 50 mcg p.o. daily Metoprolol Succinate 50 mg p.o. daily Multivitamin one tab p.o. daily Olmesartan (Benicar) 40 mg p.o. daily Sildenafil 100 mg p.o. daily p.r.n. Simvastatin 40 mg p.o. daily NEW PRESCRIPTIONS: Cephalexin 500 mg p.o. t.i.d. 7 days Hydrocodone-Acetaminophen 7.5-325 mg tablet daily p.r.n. Protonix 40 mg p.o. daily MEDICATION CHANGES: [place] will be reduced to one a day 7.5/325 mg 1/2 to one tablet p.r.n. for pain. DISCONTINUED MEDICATIONS: None Addendum: 07/07/20 The patient was called today discontinuing the statin. His liver profile was abnormal at the time of discharge from very likely hepatitis from alcohol. DIET INSTRUCTIONS: Heart Healthy ACTIVITY: As patient tolerates. Fall risk. SMOKING: Current smoker DISEASE SPECIFIC EDUCATION: Oxygen use, CPAP use. Advised to wear C-collar. Fall risk discussed. Continue medications as discussed. Followup visit. Cardiac rehab. Lifestyle recommendations discussed. Alcohol cessation discussed. HOSPITAL COURSE: 70-year-old white male who was brought to the emergency room for cough, shortness of breath and fever. He had gotten up in the middle of the night, experienced fall, laid on the floor for several hours. He was finally brought in. Chest x-ray revealed bilateral pneumonia. He had a Covid test on admission which was negative. He had had two previous negative Covid tests. P02 was in the 50's. He was placed on oxygen. We were unable to transfer as no one would accept him. He was started on Rocephin and Doxycycline IV as well as Solu-Cortef 125 mg IV q.8hr. Sodium was noted to be severely low, 114 on admission. He does have a history of chronic alcohol abuse. We believe that he fell while intoxicated, possibly aspirated and developed pneumonia. After his respiratory failure resolved and sodium level resolved with IV fluids he was still somewhat confused, ataxic, very unsteady. He does have a history of severe C-spine OA. A repeat MRI of the C-spine was done, the last one was done in 2018 along with an MRI of the brain. MRI of the brain was normal. MRI of the C-spine showed that he had invagination of the odontoid process which was worse from the previous MRI in 2018. I have called both [facility] and [facility] and spoke with Dr. Man as well as Dr. Downing, both of which decline transfer stating that this was not an emergent problem. He was placed in C-collar, of course he was already on fall precautions. We discussed with him in great detail fall prevention. He is very noncompliant. He declined home health or physical therapy. He refuses to use a walker. He still is requiring oxygen at discharge. 02 sat was 87% with exertion. Clinically, his pneumonia has improved. He also showed some improvement on a repeat chest x-ray. Sodium is stable at 125 without IV fluids, this is his baseline. We attempted to make an appointment with Dr. Man. He at first stated that he cannot see him until September. He will be placed on a cancellation list. He had seen Dr. Man before. He has also seen Dr. Calles in the past, which I contacted and he stated that he did not take care of any problems above C-3 and based on the MRI these problems are above that. Carotid scan was normal, showed less than 50%. Dr. Herrera did an echocardiogram, which was stable. He will be discharged in stable condition. Again fall precautions have been discussed. We have discussed with him alcohol cessation He declines treatment. Dr. Herrera has discussed with his daughter at great length his situation and prognosis. Will followup with him in the office. LABS/IMAGING: Sodium 125, potassium 3.8, glucose 108, AST 157, ALT 337. It is to be noted that these are still increasing. White count 17, hemoglobin 13.9, hematocrit 37.7, platelets 252. 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 TIME SPENT: More than 60 minutes. HEALTH SYSTEMLashae
--- NOTE | 2020-07-08 12:07 | ECHO2D ---
Date of Exam: 07/06/2020 Ordering Physician: DR. NICKY SALAZAR Room #: OP Reason for Echo: CARDIOMEGALY, HX CABG M-Mode Normal Adult Results LV Dimensions Normal Adult Results AoV Opening excursions >1.6 1.4 LVEDD-base- 3.5-5.8 4.1 Ao root dimensions 2.0-3.7 3.4 LVESD-base- 3.1-4.6 L. Atrium dimensions 1.9-3.8 4.5 Post. Wall thickness 0.8-1.1 1.1 IV septum (thickness) 0.7-1.2 1.0 Post. Wall excursion 0.72-1.3 NORMAL Septal motion 0.8 Systolic motion R. Ventricular cavity 1.5-2.0 NORMAL LVEF 60% 60% Paradoxical septal wall motion NORMAL 2-D : MAYBE MILDLY HYPOKINETIC SEPTUM, CALCIFIC AORTIC VALVES--NO EFFUSION, NO THROMBUS, ENLARGED LEFT ATRIAL CAVITY, NORMAL LEFT VENTRICLE SIZE M-MODE: MV: NORMAL AV: CALCIFIC AORTIC VALVES--MILD AORTIC STENOSIS TV: NORMAL PV: NORMAL CHAMBER SIZE: ENLARGED LEFT ATRIAL CAVITY WALL MOTION: MAYBE MILDLY HYPOKINETIC SEPTUM PERICARDIUM: NORMAL INTERPRETATION: 1. MILDLY HYPOKINETIC SEPTUM, EJECTION FRACTION --NORMAL 2. CALCIFIC AORTIC VALVES WITH MILD AORTIC STENOSIS 3. NORMAL LEFT VENTRICLE SIZE 4. ENLARGED LEFT ATRIAL CAVITY MTDD
--- NOTE | 2020-07-08 13:43 | PN ---
06/28/2020 Level 5 06/29/2020: Extensive 06/30/2020: Intermediate 07/01/2020: Intermediate 07/02/2020: Intermediate 07/03/2020: Intermediate 07/04/2020: Intermediate 07/05/2020: Extensive 07/06/2020: D as in discharge MTDD
--- NOTE | 2020-07-08 14:29 | PN ---
DATE OF SERVICE: 07/04/20 SUBJECTIVE: The patient was seen and examined with the nurse practitioner this morning. He is going to be kept in the hospital because of his p02 being still 52 on room air, qualifies for oxygen at home. The patient is living by himself and has some problem with balance. He is oriented to time, place and person. He is mumbling especially in the morning hours but in the afternoon and evening more or less oriented to time, place and person and very fluent about his speech and thoughts. The patient had MRI of the brain done with C-spine. The patent's Carotid Doppler did not show any hemodynamically significant velocities. The patient declined CT angiogram. MRI of the brain showed no acute intracranial abnormalities, small vessel disease was noted. Soft tissue pannus around the odontoid process narrows the central spinal canal and the foramen magnum. This could be nonspecific or related to rheumatoid arthritis which the patient doesn't have. MRI of the C- spine showed a change at the basilar invasion of odontoid process to the foramen magnum causing mass effect on cervical medullary junction was seen. This was something new noted after 03/30/18 MRI. Same type of findings were noted on the CT scan 06/28/20 reported as sclerosis and chronic changes. In any case, Dr. Calles was called as the patient has been seen by Dr. Calles a couple of years ago and Dr. Calles had elected not to do any surgery because it could be high risk surgery. The patient has been followed by him for awhile and then the patient had decided not followup with him and is feeling much better with particularly not much pain. Dr. Calles today indicated that he doesn't do any surgery higher up than C3 level and he was not getting involved which was a big surprise to the patient. The patient wanted to talk to him about it because he is being followed by Dr. Calles for at least a year for the same problem with some advancement in his arthritic changes involving the odontoid process. After that, [facility] was called and called Dr. Cox The nurse practitioner talked to him personally and I was present at the time. Dr. Cox indicated that this is more or less a very delicate surgery and the patient may need a specialized neurosurgeon and didn't want to accept the patient because he doesn't do that kind of procedure, advised cervical collar. After that, [facility] was called and Dr. Man was radiographer cardiac catheterization. The case was discussed with the nurse practitioner. Dr. Man indicated that this sounds more like a chronic process. If he is up and about and has no focal neurological deficit, would see him as an outpatient in the office so we will have to call Dr. Man's office to make an appointment as an outpatient. These things were discussed with the patient. The patient is going to be in a cervical collar. Dr. Man indicated that this being a chronic process with practically no pain the patient may not even need cervical collar. I explained to the patient all these conversations with different physicians and the patient at the present time is not ready to be discharged. He still needs treatment for his aspiration pneumonia, bilateral, hypoxemia and respiratory failure. Besides that, the patient has coronary artery bypass surgery, hyponatremia and multiple other medical problems, he is high risk for any surgical procedure at the present time. During the conversation, the patient indicated that he had taken a second opinion from Dr. Hawthorne, neurologist. At that time, Dr. Hawthorne went to the next floor by Dr. Silva and Dr. Man's office x-rays were shown to surgeon whom indicated that this is a very high risk procedure to correct the cervical spine issue. They recommended conservative management for now - this was a couple of years ago. TIME SPENT: More than 1 1/2 hours Extensive. Plan and coordination of the patient's care discussed in the presence of nurse. BRYAN
--- NOTE | 2020-07-09 11:21 | PN ---
DATE OF SERVICE: 06/30/20 SUBJECTIVE: 70-year-old white male hospitalized with double pneumonia, likely atypical, could be aspiration. He also has hyponatremia. The patient's condition has stabilized. He is feeling somewhat better. He is still drowsy. Appetite is acceptable. REVIEW OF SYSTEMS: CONSTITUTIONAL: No night sweats. No fatigue, malaise, lethargy. No fever or chills. HEENT: Eyes: No visual changes. No eye pain. No eye discharge. ENT: No runny nose. No epistaxis. No sinus pain. No sore throat. No odynophagia. No congestion. RESPIRATORY: No cough, no congestion. No hemoptysis. No shortness of breath. CARDIOVASCULAR: No angina symptoms. No CHF symptoms. No atypical chest pain for CAD. No palpitations. No PND. No orthopnea. GASTROINTESTINAL: No abdominal pain. No nausea or vomiting. No diarrhea or constipation. No hematemesis. No hematochezia. GENITOURINARY: No urgency. No frequency. No dysuria. No hematuria. No obstructive symptoms. No discharge. No pain. No significant abnormal bleeding. MUSCULOSKELETAL: No musculoskeletal pain; no joint swelling. NEUROLOGICAL: No headache. No neck pain. No syncope. No seizures. No dizziness. PSYCHIATRIC: Not anxious. No depression. No suicidal thoughts. No homicidal thoughts. SKIN: No rash. No lesions. No wounds. ENDOCRINE: No unexplained weight loss. No weight gain. HEMATOLOGIC/LYMPHATIC: No anemia. No purpura. No petechiae. No prolonged or excessive bleeding. No palpable lymph nodes. PHYSICAL EXAMINATION: VITAL SIGNS: Temperature 97.6, pulse 65, respiratory rate 18, blood pressure 118/77, pulse ox 96% with 2L. HEENT: Head normocephalic, atraumatic. Eyes: Extraocular muscles are intact. Pupils are equal, round and reactive to light and accommodation. Ears: No lesions. Nose appeared normal. Throat: No exudate or erythema. NECK: Supple. No JVD, no carotid bruit. No lymphadenopathy or thyromegaly. LUNGS: Decreased breath sounds but clear to auscultation. Percussion note normal. Chest symmetrical. HEART: S1, S2, no S3. No murmurs. No cyanosis or clubbing. No ascites. Pulses: Dorsalis pedis and posterior tibial pulses +1 to +2 bilaterally. ABDOMEN: Soft. Nontender. Bowel sounds active. No CVA tenderness. No mass felt. EXTREMITIES: No edema. Full range of motion of all extremities, equal. NEUROLOGIC: No focal deficit. Cranial nerves II through XII are grossly intact. No headache, no double vision or headache. SKIN: Turgor - better. LYMPHATIC: No palpable lymph nodes/no lymphedema. MUSCULOSKELETAL: Normal joints with no swelling. Muscle tone is normal. LABS: Hemoglobin 13.7, hematocrit 30, WBC 26,000, normal differential. Creatinine 0.5, BUN 21, potassium 3.4, sodium 124. ASSESSMENT: 1. Bilateral pneumonia. Chest x-ray showed somewhat worsening infiltrate likely interstitial. Fluid atypical for it, consistent with atypical or viral pneumonia. The patient is Covid negative three times, had Covid done on 06/27/20, which was negative. 06/28/20 he had Covid done twice and was negative. 2. Hyponatremia likely from chronic alcohol abuse. 3. Anxiety with withdrawals. The patient is already on Ativan 0.5 t.i.d. PLAN: 1. Will do ABG on room air. 2. Chest x-ray. 3. 100 cc fluid restriction. 4. 1000 cc Normal Saline with 50 cc/hr. 5. Watch for DTs. 6. Cardiovascular status stable. 7. Will give Lasix 20 mg IV. CONDITION: Stable. TIME SPENT: More than 30 minutes. Plan and coordination of the patient's care discussed in the presence of nurse. BRYAN
--- NOTE | 2020-07-09 12:24 | PN ---
DATE OF SERVICE: 07/02/20 SUBJECTIVE: The patient was seen and examined with the nurse practitioner. The patient's condition was stabilized. Oxygen saturation 94% on 2L. Clinically he is a lot better. He is eating better. No DTs noted. TIME SPENT: More than 30 minutes. Plan and coordination of the patient's care discussed in the presence of nurse. BRYAN
== END 2020-07-06 14:40 | disposition home or self-care (01) | DRG 551 ==
LOC: ED 09:03 → MEDSURG A 16:41
PROVIDERS: ADMIT Internal Medicine; ATTEND Internal Medicine
DX: M19.90 Unspecified osteoarthritis, unspecified site; F10.10 Alcohol abuse, uncomplicated; E78.5 Hyperlipidemia, unspecified; F41.9 Anxiety disorder, unspecified; E87.1 Hypo-osmolality and hyponatremia; B96.20 Unspecified Escherichia coli [E. coli] as the cause of diseases classified elsewhere; I10 Essential (primary) hypertension; F32.9 Major depressive disorder, single episode, unspecified; A41.9 Sepsis, unspecified organism; J96.00 Acute respiratory failure, unspecified whether with hypoxia or hypercapnia; E87.5 Hyperkalemia; R41.0 Disorientation, unspecified; R53.1 Weakness; I25.10 Atherosclerotic heart disease of native coronary artery without angina pectoris; K70.10 Alcoholic hepatitis without ascites; M54.2 Cervicalgia; K70.30 Alcoholic cirrhosis of liver without ascites; Z91.19 Patient's noncompliance with other medical treatment and regimen

== ENCOUNTER 2022-06-25 14:05 | Inpatient (IN) ==
[2022-06-25] MEDS ORDERED: NITROSTAT SL PRN (15:55)
[2022-06-25] MEDS ORDERED: TYLENOL PO PRN (15:55)
[2022-06-25] MEDS ORDERED: ATROPINE SULFATE PFS IVP PRN (15:55)
[2022-06-25] MEDS ORDERED: TORADOL IVP PRN (15:57)
[2022-06-25] MEDS ORDERED: DILAUDID 4 MG/ML SYRINGE IVP PRN (15:58)
[2022-06-25] MEDS ORDERED: PERCOCET 5-325 PO PRN (16:00)
[2022-06-25] MEDS ORDERED: ZANAFLEX PO PRN (16:00)
[2022-06-25 16:13] VITALS: BMI 25.9
[2022-06-25 16:29] LABS: BASOPHILS # (AUTO) 0.1 K/uL (0-0.2); BASOPHILS % (AUTO) 0.8 % (0.0-3.0); EOSINOPHILS # (AUTO) 0.1 K/ul (0.0-0.7); EOSINOPHILS % (AUTO) 0.9 % (0.0-7.0); HEMATOCRIT 44.3 % (42.0-52.0); HEMOGLOBIN 15.4 g/dl (14.0-18.0); IMMATURE GRANULOCYTE # (AUTO) 0.2 (0.0-1.0); IMMATURE GRANULOCYTE % (AUTO) 1.5 % (0.0-5.0); LYMPHOCYTES # (AUTO) 2.3 K/uL (0.60-3.4); LYMPHOCYTES % (AUTO) 19.8 (10.0-50.0); MEAN CORPUSCULAR HEMOGLOBIN 34.1 pg (27.0-31.0); MEAN CORPUSCULAR HGB CONC 34.8 (31.8-35.4); MEAN CORPUSCULAR VOLUME 98.2 fl (80.0-94.0); MONOCYTES # (AUTO) 0.9 K/uL (0.4-2.0); MONOCYTES % (AUTO) 7.9 (0-10); NEUTROPHILS % (AUTO) 69.1 % (42.2-75.2); PLATELET COUNT 285 10^3/uL (140-440); RDW COEFFICIENT OF VARIATION 14.2 % (11.6-14.8); RED BLOOD COUNT 4.51 10^6/ul (4.70-6.10); WHITE BLOOD COUNT 11.61 K/ul (4.2-10.2)
[2022-06-25] MEDS ORDERED: SODIUM CHLORIDE 1,000 ML IV SCH (16:30)
--- NOTE | 2022-06-25 16:36 | DI ---
EXAM: CHEST RADIOGRAPH (1 VIEW) TECHNIQUE: Frontal Chest Radiograph. HISTORY: Shortness of breath COMPARISON: 07/05/2020 FINDINGS: Lines, Tubes, Devices: None Lungs and Pleura: No focal consolidation. No pleural effusion. No pneumothorax. No pulmonary edema . Cardiomediastinum: Stable cardiomediastinal silhouette. Mild aortic calcifications. Bones/Soft Tissues: No acute osseous abnormality. No soft tissue abnormality. Upper Abdomen: Within normal limits. IMPRESSION: No acute radiographic abnormality.
[2022-06-25 16:41] LABS: ALANINE AMINOTRANSFERASE 37.1 U/L (0-50); ALBUMIN 4.21 g/dL (3.5-5.0); ALKALINE PHOSPHATASE 130.6 U/L (56-119); ASPARTATE AMINO TRANSFERASE 59.8 U/L (17-59); BILIRUBIN,TOTAL 0.64 mg/dL (0.2-1.3); BLOOD UREA NITROGEN 9.8 mg/dL (9-20); CALCIUM 9.57 mg/dL (8.4-10.2); CARBON DIOXIDE 32.5 mmol/L (22-30.0); CHLORIDE 90.6 mmol/L (98-107); CREATININE 0.76 mg/dL (0.60-1.10); GLUCOSE 111.3 mg/dL (74-106); POTASSIUM 3.12 mmol/L (3.5-5.1); SODIUM 127.4 mmol/L (134.5-145); TOTAL PROTEIN 7.33 g/dL (6.3-8.2)
[2022-06-25 16:53] LABS: TROPONIN I < 0.012 ng/ml (0.0000-0.120)
[2022-06-25] MEDS: DECADRON IM SCH (17:23)
[2022-06-25] MEDS: DILAUDID 1 MG/ML SYRINGE IVP PRN ×2 (17:23→23:55)
[2022-06-25] MEDS: K-DUR PO SCH (21:21)
[2022-06-25] MEDS ORDERED: COLACE PO PRN (22:10)
[2022-06-25 22:26] LABS: BILIRUBIN,URINE Negative (NEGATIVE); CLARITY,URINE Clear (CLEAR); COLOR,URINE Yellow (YELLOW); GLUCOSE, URINE (UA) Negative (NEGATIVE); KETONES,URINE Negative (NEGATIVE); LEUKOCYTE ESTERASE ,URINE Negative (NEGATIVE); NITRITE,URINE Negative (NEGATIVE); PROTEIN,URINE 1+ (NEGATIVE); URINE, BLOOD Negative (NEGATIVE); UROBILINOGEN,URINE 0.2 (0.2)
[2022-06-25 22:36] LABS: BACTERIA,URINE TRACE (NOT PRESENT); HYALINE CASTS, URINE 0-2 (NOT PRESENT); SQUAMOUS EPITHELIAL CELL,UR NOT PRESENT (0-5); URINE RBC, MICROSCOPIC 0-2 (0-2); URINE WBC, MICROSCOPIC 0-2 (0-2)
[2022-06-25] MEDS: NORVASC PO SCH (22:47)
[2022-06-25] MEDS: LOPRESSOR PO SCH (22:47)
[2022-06-26 00:29] LABS: CREATINE KINASE 35.2 U/L (55-170)
[2022-06-26 00:42] LABS: TROPONIN I < 0.012 ng/ml (0.0000-0.120)
[2022-06-26] MEDS: DILAUDID 1 MG/ML SYRINGE IVP PRN ×2 (04:46→08:57)
[2022-06-26 05:14] VITALS: BP 153/94; TEMP 97.3
[2022-06-26 05:16] LABS: BASOPHILS % (AUTO) 0.4 % (0.0-3.0); HEMATOCRIT 44.8 % (42.0-52.0); HEMOGLOBIN 15.7 g/dl (14.0-18.0); IMMATURE GRANULOCYTE # (AUTO) 0.4 (0.0-1.0); IMMATURE GRANULOCYTE % (AUTO) 3.7 % (0.0-5.0); LYMPHOCYTES # (AUTO) 1.3 K/uL (0.60-3.4); LYMPHOCYTES % (AUTO) 13.3 (10.0-50.0); MEAN CORPUSCULAR HEMOGLOBIN 34.6 pg (27.0-31.0); MEAN CORPUSCULAR VOLUME 98.7 fl (80.0-94.0); MONOCYTES # (AUTO) 0.3 K/uL (0.4-2.0); MONOCYTES % (AUTO) 2.8 (0-10); NEUTROPHILS # (AUTO) 7.5 K/ul (2.0-6.9); NEUTROPHILS % (AUTO) 79.8 % (42.2-75.2); PLATELET COUNT 300 10^3/uL (140-440); RED BLOOD COUNT 4.54 10^6/ul (4.70-6.10)
[2022-06-26 05:32] LABS: ALANINE AMINOTRANSFERASE 37.8 U/L (0-50); ALBUMIN 4.29 g/dL (3.5-5.0); ALKALINE PHOSPHATASE 138.5 U/L (56-119); ASPARTATE AMINO TRANSFERASE 48.6 U/L (17-59); BILIRUBIN,TOTAL 0.59 mg/dL (0.2-1.3); BLOOD UREA NITROGEN 11.4 mg/dL (9-20); CALCIUM 9.8 mg/dL (8.4-10.2); CARBON DIOXIDE 27.5 mmol/L (22-30.0); CHLORIDE 94.4 mmol/L (98-107); CREATININE 0.62 mg/dL (0.60-1.10); GLUCOSE 131.3 mg/dL (74-106); POTASSIUM 4.2 mmol/L (3.5-5.1); SODIUM 128.5 mmol/L (134.5-145); TOTAL PROTEIN 7.35 g/dL (6.3-8.2)
[2022-06-26] MEDS ORDERED: PROTONIX PO SCH (06:30)
[2022-06-26] MEDS ORDERED: SYNTHROID PO SCH (06:30)
[2022-06-26] MEDS: K-DUR PO SCH ×2 (08:56→12:11)
[2022-06-26] MEDS: LOPRESSOR PO SCH (08:56)
[2022-06-26] MEDS: NORVASC PO SCH (08:57)
[2022-06-26] MEDS: DECADRON IM SCH (08:57)
[2022-06-26] MEDS ORDERED: LIPITOR PO SCH (09:00)
[2022-06-26] MEDS ORDERED: LEXAPRO PO SCH (09:00)
[2022-06-26] MEDS ORDERED: SODIUM CHLORIDE PO SCH (09:00)
[2022-06-26] MEDS ORDERED: MULTIVITAMIN TABLET PO SCH (09:00)
[2022-06-26] MEDS ORDERED: BENICAR PO SCH (09:00)
--- NOTE | 2022-06-26 11:55 | RS.PTINEVL ---
Subjective - Patient information Date of Evaluation: 06/26/22 Diagnosis: Acute back pain Usual Living Arrangement: significant other Home Environment: House Medical History: Hypertension Medical History Comments:: Alcoholic hepatitis, Chronic hyponatremia, CVA, [place], PAD, recurrent falls, Sacral insufficiency fracture Surgical History Comments:: Hernia repair, Left TKA, prostatectomy, CABG X4, Subjective Information/ Patient Comments:: Patient states "What do you want me to say" when asked about his pain level. States pain is " center and a little to the right" in the low back. Agreeable to try Electrical stimulation to low back to help pain, states "yes, let's do something". During treatment, he shows interest in obtaining a TENS unit for home to manage pain. Does not rate pain. - Level of function Prior to this admission, the patient could do the following:: Independent Selfcare, Independent ADL's, Independent Ambulation Current Equipment Used at Home: straight cane, walker Interventions - Objective Patient Orientation: Person, Place, Time, Situation Current Interventions: IV's, Telemetry Observation: Patient laying supine in bed. Range of Motion - ROM Right Upper Extremity AROM: WFL's Left Upper Extremity AROM: WFL's Right Lower Extremity AROM: WFL's Left Lower Extremity AROM: WFL's Muscle Strength - Muscle Strength Comments:: Bilateral LE strength generally 4+/5 throughout. Sensation - Sensation Right Lower Extremity Sensation: Intact/Normal Left Lower Extremity Sensation: Intact/Normal Palpation Palpation Findings: Muscle Guarding Comments:: Muscle guarding noted to bilateral lumbar paraspinals. Functional Mobility - Bed Mobility Rolling R/L: Independent Scooting: Independent Supine to Sit: Independent Sit to Supine: Independent - Transfers Sit to Stand: Supervision Stand to Sit: Supervision Stand Pivot Transfers: Supervision - Safety Awareness Safety Awareness: Fair (very impulsive) REBA INDEX SCORE: NA Ambulation - Ambulation Weight Bearing Status: FWB Assistive Device Used: Rolling Walker Distance: 120 feet Assistance needed with Ambulation: Supervision Quality of Ambulation: Patient is steady, clears both feet consistently. Demonstrates no loss of balance. Rolling walker veers to the left and he is able to correct it multiple times while ambulating. Treatment with Modalities - Modalities performed Electrical Stim Unattended Treatment Time: 20 mins Type: HVGS Method Applied: 2 large pads Intensity: up to 300 peak volts Patient Position: Supine Treatment Area: just to the right of lumbar spine Comments:: Pt appears to like the Estim to low back and inquires about getting a TENS unit for home. Treatment time - Time with patient Length of Evaluation: 16 mins Total treatment time: 42 (mins) Patient Education - Education Patient Education: Education of diagnosis Teaching Recipient: Patient, Significant Other Teaching Methods: Discussion, Handout Comments: Discussion of home TENS unit. Gave screenshot of different TENS units on USB [employer] and discussed they are a very affordable option for pain management. Assessment - Assessment Problem List:: Decreased level of function, Pain limits previous level of function Rehab Potential: Good Further Therapy Indicated?: Yes Candidate for Swing Bed for Therapy Services?: NO, patient very high functioning. Needs no physical assistance with bed mobility, transfers, or ambulation. Evaluation Complexity: HISTORY: Low, EXAM OF BODY SYSTEMS: Low, CLINICAL PRESENTATION: Low, CLINICAL DECISION MAKING: Low Patient's Goal(s): Goal is to get relief of low back pain. Long-Term Goals GOAL #1: Patient to report reduction in back pain to <4/10. Goal to be met by: 06/29/22 Comments: 06/29/22 GOAL #2: Pt to report greater ease with mobility due to reduced back pain. Goal to be met by: 06/29/22 Plan Modalities: Hot Pack, Ultrasound, Ultrasound Combination, Electrical Stimulation Frequency of Treatment: 1-2 X day, as tolerated Duration of Treatment: 2-3 days Anticipated Discharge Destination: Home Treatment Diagnosis (ICD 10 Codes): M54.50 low back pain unspecified Has the Physician been added for Co-signature?: Yes
--- NOTE | 2022-06-26 11:57 | HP ---
DATE OF SERVICE: 06/25/22 REASON FOR HOSPITALIZATION/HISTORY OF PRESENT ILLNESS: Can't stand pain, can't stand, lay down, can't hardly walk. Pain medication not helping. Saw Dr. Calles, wants to wait for sacrum to heal has not heard from Marli. Pain 10 out of 10. PAST MEDICAL HISTORY/PAST SURGICAL HISTORY: Severe DJD C spine-Inoperable. Infrarenal aortic aneurysm 4.7cm Dr. Fowler. CAD with history of MD CVA 09/16 Right frontal lobe encephalomalacia PAD with common iliac stenosis Chronic alcoholism Alcoholic hepatitis Chronic cigar smoking Recurrent falls Chronic hyponatremia History prostate cancer Incontinence REVIEW OF SYSTEMS: CONSTITUTIONAL: No fever, Fatigue. HEENT: No sinus drainage, no sore throat. RESPIRATORY: No cough, no congestion. CARDIOVASCULAR: No atypical chest pain for coronary artery disease. No angina, CHF symptoms, palpitations or shortness of breath. GASTROINTESTINAL: No melena or abdominal pain. No GERD. GENITOURINARY: No hematuria, no prostatism, no polyuria. 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 GAIT: wheelchair. MUSCULOSKELETAL: No osteoarthritis pain, no joint swelling. ENDOCRINE: No weight loss, no weight gain. SKIN: Not dry, no rash. PSYCHIATRIC: Not anxious, no depression, no suicidal thoughts, no homicidal thoughts. SOCIAL HISTORY: Marital Status: . Alcohol Usage: Yes. Tobacco Usage: Yes. MEDICATIONS: Eliquis 5mg PO BID Atorvastatin 40mg Pepcid 20mg BID Folic acid 1mg Magnesium oxide 400(240) Vitamins Nicoderm patch Klo/con 20meq Sodium Chloride 1mg TID Vitamin B1 100mg daily Metoprolol 25mg PO BID Viagra 100mg Lipitor 20mg PO daily Percocet 7.5-325mg Protonix 40mg daily Norvasc 5mg daily BID Levothyroxine 0.05mg daily Lexapro 10mg daily Aspirin 81mg daily Potassium 20meq daily Urea 15gram packet daily ALLERGIES: No known allergies. PHYSICAL EXAMINATION: V/S: Pulse 76, blood pressure 110/62, temperature 98, oxygen saturation 98%, weight unable. GENERAL APPEARANCE: Oriented times three. HEENT: Normal. NECK: No JVP, no bruits. RESPIRATORY: Decreased breath sounds. CARDIOVASCULAR: S1, S2, no S3, no murmur. No cyanosis, clubbing. No ascites. GI/ABDOMEN: No tenderness. Bowel sounds are active. EXTREMITIES: edema, pulses +1, equal. 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 RECTAL: <0.04 Dr. Washington follows. Colonoscopy screening refused. ASSESSMENT: 1. Acute low back pain 2. Generalized weakness 3. Dehydration 4. Severe DJD C spine-Inoperable. 5. Infrarenal aortic aneurysm 4.7cm Dr. Fowler. 6. CAD with history of MD 7. CVA 09/16 8. Right frontal lobe encephalomalacia 9. PAD with common iliac stenosis 10.Chronic alcoholism 11.Alcoholic hepatitis 12.Chronic cigar smoking 13.Recurrent falls 14.Chronic hyponatremia 15.History prostate cancer 16.Incontinence PLAN: 1. Routine telemetry 2. CBC and CMP now and daily 3. 1cc Decadron IM daily 4. Zanaflex 4mg PO TID PRN 5. Toradol 30mg IV TID PRN 6. Dilaudid 2mg IV Q 3-4 hours PRN 7. U/A 8. Chest x-ray 9. Normal saline IV @ 75cc times one liter 10.Percocet 5/325mg TID PRN PO 11.Regular diet TIME SPENT: More than 70 minutes. MTDD
[2022-06-26] MEDS ORDERED: LYRICA PO SCH (21:00)
[2022-06-26] MEDS ORDERED: K-DUR PO ONE (21:00)
[2022-06-27] MEDS ORDERED: PROTONIX PO SCH (06:30)
[2022-06-27] MEDS ORDERED: ZYLOPRIM PO SCH (09:00)
--- NOTE | 2022-06-29 14:55 | PN ---
DATE OF SERVICE: 06/26/22 SUBJECTIVE: 72 year old white male hospitalized with acute low back pain. He was hospitalized a couple of weeks ago to [facility] and after that he was in the swing bed at [place]. At the time of discharge had pain controlled at a level of 2-3 on scale of 1-10 and was discharged home. Now the patient's pain has worsened. He has been doing a lot of activities. The patient is feeling a lot better. He is quite comfortable and his appetite has improved. He doesn't seem to be in distress. His skin turgor is a lot better. REVIEW OF SYSTEMS: CONSTITUTIONAL: No night sweats. No fatigue, malaise, lethargy. No fever or chills. HEENT: Eyes: No visual changes. No eye pain. No eye discharge. ENT: No runny nose. No epistaxis. No sinus pain. No sore throat. No odynophagia. No congestion. RESPIRATORY: No cough, no congestion. No hemoptysis. No shortness of breath. CARDIOVASCULAR: No angina symptoms. No CHF symptoms. No atypical chest pain for CAD. No palpitations. No PND. No orthopnea. GASTROINTESTINAL: No abdominal pain. No nausea or vomiting. No diarrhea or constipation. No hematemesis. No hematochezia. GENITOURINARY: No urgency. No frequency. No dysuria. No hematuria. No obstructive symptoms. No discharge. No pain. No significant abnormal bleeding. MUSCULOSKELETAL: No musculoskeletal pain; no joint swelling. Less pain. Level of pain is 2-3 on scale of 1-10. The patient looks comfortable. NEUROLOGICAL: No headache. No neck pain. No syncope. No seizures. No dizziness. PSYCHIATRIC: Not anxious. No depression. No suicidal thoughts. No homicidal thoughts. SKIN: No rash. No lesions. No wounds. ENDOCRINE: No unexplained weight loss. No weight gain. HEMATOLOGIC/LYMPHATIC: No anemia. No purpura. No petechiae. No prolonged or excessive bleeding. No palpable lymph nodes. PHYSICAL EXAMINATION: VITAL SIGNS: Temperature 97.3, pulse 67, Respiratory rate 20, blood pressure 153/90 and pulse ox 95%. HEENT: Head normocephalic, atraumatic. Eyes: Extraocular muscles are intact. Pupils are equal, round and reactive to light and accommodation. Ears: No lesions. Nose appeared normal. Throat: No exudate or erythema. NECK: Supple. No JVD, no carotid bruit. No lymphadenopathy or thyromegaly. LUNGS: Clear to auscultation. Percussion note normal. Chest symmetrical. HEART: S1, S2, no S3. No murmurs. No cyanosis or clubbing. No ascites. Pulses: Dorsalis pedis and posterior tibial pulses +1 to +2 bilaterally. ABDOMEN: Soft. Nontender. Bowel sounds active. No CVA tenderness. No mass felt. EXTREMITIES: No edema. Full range of motion of all extremities, equal. NEUROLOGIC: No focal deficit. Cranial nerves II through XII are grossly intact. No headache. No double vision. SKIN: Not dry. Intact. Turgor - normal. LYMPHATIC: No palpable lymph nodes/no lymphedema. MUSCULOSKELETAL: Normal joints with no swelling. Muscle tone is normal. LABS: Hgb 15.7, hct 44, WBC 9,400 normal differential, creatinine 0.6, BUN 11, potassium 4.2 ASSESSMENT: 1. Lower back pain seems to be under control PLAN: 1. The patient is going to bella given TENS unit and also is going to be referred to Dr. Mendez for Pain Management. 2. IV to be discontinued 3. We will restart his Lyrica and Allopurinol CONDITION: Stable CARDIOVASCULAR STATUS: Stable. TIME SPENT: More than 30 minutes. Plan and coordination of the patient's care discussed in the presence of nurse. ADDENDUM: Later on in the afternoon reported that the patient wants to go home. He has some arrangements made so that there is somebody going to be at home and he wants to go home. Pain seems to be under control in spite of repeated instruction given by nursing staff. The patient declined to stay in the hospital. He will be discharged home as he is in stable condition and he is moving all his extremities. 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 He is oriented to time, place and person. No other findings at present time, at the time when he is going to be discharged. Review of system is all negative except for the pain level which is 2-3 on scale of 1-10 which was morning. The patient is going to be discharged on the same medication he was on. He is going to be given TENS unit and other information about Dr. Mendez and appointment with Pain Management is going to be given to him because I'm going to be seeing him on Wednesday or Wednesday at 10:00am. BRYAN
--- NOTE | 2022-07-01 11:38 | DS ---
DATE OF SERVICE: 06/26/22 FINAL DIAGNOSIS: 1. Acute low back pain 2. Generalized weakness 3. Dehydration 4. Severe DJD C spine-Inoperable. 5. Infrarenal aortic aneurysm 4.7cm Dr. Fowler. 6. CAD with history of ID 7. CVA 09/16 8. Right frontal lobe encephalomalacia 9. PAD with common iliac stenosis 10.Chronic alcoholism 11.Alcoholic hepatitis 12.Chronic cigar smoking 13.Recurrent falls 14.Chronic hyponatremia 15.History prostate cancer 16.Incontinence DISCHARGE INSTRUCTIONS: Discharge home. The patient is advised to continue the same medications he was on at home. instruction to come back on Wednesday or Wednesday. MEDICATIONS AT DISCHARGE: Levothyroxine Lexapro Sildenafil Amlodipine Allopurinol Atorvastatin Metoprolol Lyrica Sodium Chloride 1 gram tablet Oxycodone Zanaflex Benicar Pantoprazole Potassium HOSPITAL COURSE: 72 year old white male was hospitalized after being seen in the office with severe back pain to the point where he was unable to get up and walk around even with the help. The patient's daughter was present in the room, being seen by Dr. Calles. He is going to be followed by Dr. Calles. The patient was seen by Dr. Calles on a few days after his discharge from [facility]. The patient had already been seen by Dr. Man at [facility] when he was in the hospital there. The patient is going to be referred to [facility]. During the stay in the hospital the patient was given Dilaudid and IV Toradol, a couple of doses. The patient's condition has improved. His muscle spasm seems to be under control. He was given extra doses of Potassium because of Hypokalemia. The day of discharge the patient's Potassium was 4.2. Hypokalemia resolved. He felt a lot better. He was able to be up and about with help by physical therapy. CONDITION:STABLE. TIME SPENT: More than 60 minutes. [facility] SYSTEMLashae
--- NOTE | 2022-07-01 11:38 | PN ---
06/25/22: Level 5 06/26/22: D as in discharge MTDD
== END 2022-06-26 16:08 | disposition home or self-care (01) | DRG 556 ==
LOC: LAB 14:05 → MEDSURG B 15:20
PROVIDERS: ADMIT Internal Medicine; ATTEND Internal Medicine
DX: E86.0 Dehydration; Z79.899 Other long term (current) drug therapy; F17.290 Nicotine dependence, other tobacco product, uncomplicated; I71.43 Infrarenal abdominal aortic aneurysm, without rupture; Z79.82 Long term (current) use of aspirin; M54.50 Low back pain, unspecified; R29.6 Repeated falls; Z85.46 Personal history of malignant neoplasm of prostate; K70.10 Alcoholic hepatitis without ascites; M51.36 Other intervertebral disc degeneration, lumbar region; N39.498 Other specified urinary incontinence; I70.8 Atherosclerosis of other arteries; I69.314 Frontal lobe and executive function deficit following cerebral infarction; I10 Essential (primary) hypertension; Z79.01 Long term (current) use of anticoagulants; Z51.81 Encounter for therapeutic drug level monitoring; E87.1 Hypo-osmolality and hyponatremia; I25.10 Atherosclerotic heart disease of native coronary artery without angina pectoris; F10.20 Alcohol dependence, uncomplicated; M62.81 Muscle weakness (generalized); I25.2 Old myocardial infarction

== ENCOUNTER 2023-04-20 22:30 | Inpatient (IN) ==
[2023-04-20] MEDS ORDERED: ZOFRAN 4 MG/2 ML IVP ONE (23:04)
[2023-04-20] MEDS ORDERED: MORPHINE 4 MG/ML SYRINGE IVP ONE (23:04)
[2023-04-20] MEDS ORDERED: LIDODERM 5 % PATCH TP ONE (23:04)
--- NOTE | 2023-04-20 23:18 | ED.PDOC ---
General ED Provider: Dr. ANTONINA SIFUENTES DO Chief Complaint: Back Pain Stated Complaint: Patient is a 72 yo M here for low radha and R humerus pain Patient arrives afebrile and vitally stable by POV Patient reports 3 weeks ago he fell on steps and broke his R humerus and has a mild t12 compression fracture He reports he was told at [facility] they are non operative He is on analgesics and pain management Tonight he could not sleep due to pain He is requesting analgesia Patient stable Time Seen by Provider: 04/20/23 23:04 Information Source: Patient Primary Care Provider: NICKY HERRERA MD Nursing and Triage Documentation Reviewed and Agree: Yes Review of Systems Review Of Systems Constitutional: Denies Chills or Fever Eyes: Denies Vision change or Decreased acuity Ears, Nose, Mouth, Throat: Denies Ear pain, Ear discharge or Epistaxis Respiratory: Denies Cough or Wheezing Cardiac: Denies Chest pain or Palpitations GI: Denies Abdominal pain, Constipated or Diarrhea : Denies Burning or Flank pain Musculoskeletal: Reports Back pain and Muscle pain; Denies Neck pain Skin: Denies Rash or Cyanosis Neurological: Reports No symptoms Endocrine: Reports No symptoms Hematologic/Lymphatic: Reports No symptoms All Other Systems: Reviewed and Negative [facility] Medical History Acute UTI N39.0 - Urinary tract infection, site not specified (ICD-10) Hypertension I10 - Essential (primary) hypertension (ICD-10) Myocardial infarction I21.3 - ST elevation (STEMI) myocardial infarction of unspecified site (ICD- 10) Non-ST elevated myocardial infarction (non-STEMI) I21.4 - Non-ST elevation (NSTEMI) myocardial infarction (ICD-10) Pleurisy R09.1 - Pleurisy (ICD-10) Sacral fracture S32.10XA - Unspecified fracture of sacrum, initial encounter for closed fracture (ICD-10) Sacral insufficiency fracture M84.48XA - Pathological fracture, other site, initial encounter for fracture (ICD-10) Family History Mother CHF (congestive heart failure) FATHER CVA (cerebral vascular accident) SISTER Hypertension Social History Smoking and tobacco status: Current some day smoker Tobacco type: cigars Smokeless tobacco user: other Alcohol intake: current Alcohol type: hard liquor Substance use type: does not use Special joyce needs: No Agree to transfusion: Yes Adopted: No Caregiver/support person: No Foster care: No Household members: other Other Household Members: girl friend Housing: house Marital status: D Lives independently: Yes Number of children: 2 Financial difficulty paying for basics: not very hard service: No senior care: No Current occupational status: employed Pets and animals: No History of recent travel: Yes (in the states) Sexually active: Yes Do you think of yourself as: straight/heterosexual Current gender identity: male Seatbelt use: always Drives intoxicated or rides with intoxicated 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 Water heater temperature set < 120 degrees: Yes Working smoke detector in home: Yes Fire extinguisher in home: Yes Carbon monoxide detector in home: Yes Firearms in home: No Surgical History History of hernia surgery Z98.89 - Other specified postprocedural states (ICD-10) History of left knee replacement Z96.652 - Presence of left artificial knee joint (ICD-10) History of prostatectomy Z98.89 - Other specified postprocedural states (ICD-10) History of quadruple bypass Z95.1 - Presence of aortocoronary bypass graft (ICD-10) Physical Exam Physical Exam Appearance: Reports Well-appearing and Well-nourished Ill-appearing: Not Applicable Pain Distress: Not Applicable Eyes: Reports RAÚL and EOMI ENT: Reports Ears normal and Nose normal Neck: Supple Respiratory: Reports Airway patent and Breath sounds clear; Denies Wheezes Cardiovascular: Reports RRR and Pulses normal GI/: Reports Soft and Nontender Musculoskeletal: Reports Normal strength and ROM intact Skin: Reports Warm and Dry Neurological: Reports Sensation intact and Motor intact Psychiatric: Reports Affect appropriate and Mood appropriate Critical Care Note Critical Care Note Total Critical Care Time (mins): 0 Course Course Orders, Labs, Meds: Orders Category Date Time Status OBSERVATION [PLACE PATIENT OBSERVATION] .TO [facility] ADMISSION 04/20/23 23:13 Ordered (MONITORED BED) TELEMETRY MONITORING TELE CARE 04/20/23 23:14 Ordered CBC W/ AUTO DIFF Stat LAB 04/20/23 23:04 Ordered CMP [COMPREHENSIVE METABOLIC PANEL] Stat LAB 04/20/23 23:04 Ordered SARS COV-2 RNA RAPID GUSTAVO Stat LAB 04/20/23 Ordered Lidocaine Patch [Lidoderm 5 % Patch] Meds 04/20/23 23:04 Discontinued 1 patch TP ONCE ONE Morphine Sulfate [Morphine 4 mg/ml Syringe] Meds 04/20/23 23:04 Discontinued 4 mg IVP ONCE ONE Ondansetron HCl/Pf [Zofran 4 mg/2 ml] Meds 04/20/23 23:04 Discontinued 4 mg IVP ONCE ONE Medications Discontinued Medications Generic Name Dose Route Start Last Admin Trade Name [place] PRN Reason Stop Dose Admin Lidocaine 1 patch 04/20/23 23:04 Lidocaine 5% Patch TP 04/20/23 23:05 ONCE ONE Morphine Sulfate 4 mg 04/20/23 23:04 Morphine Sulfate 4 Mg/Ml Syringe IVP 04/20/23 23:05 ONCE ONE Ondansetron HCl 4 mg 04/20/23 23:04 Ondansetron Hcl/Pf 4 Mg/2 Ml Sdv IVP 04/20/23 23:05 ONCE ONE Vital Signs: Temp Pulse Resp BP Pulse Ox 04/20/23 22:32 98.0 F 77 20 146/85 H 94 L MDM: Patient is a 72 yo M here for subacute low back and arm pain Patient afebrile and vitally stable Hx from patient chart review by me Exam reassuring 2 labs and no images reviewed by me Patient allows for admission analgesics and will discuss options tomorrow with Dr. 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
[2023-04-20 23:30] LABS: BASOPHILS # (AUTO) 0.1 K/uL (0-0.2); BASOPHILS % (AUTO) 0.4 % (0.0-3.0); EOSINOPHILS % (AUTO) 0.3 % (0.0-7.0); HEMATOCRIT 42.5 % (42.0-52.0); HEMOGLOBIN 15.2 g/dl (14.0-18.0); IMMATURE GRANULOCYTE # (AUTO) 0.2 (0.0-1.0); IMMATURE GRANULOCYTE % (AUTO) 1.3 % (0.0-5.0); LYMPHOCYTES # (AUTO) 1.7 K/uL (0.60-3.4); LYMPHOCYTES % (AUTO) 12.9 (10.0-50.0); MEAN CORPUSCULAR HGB CONC 35.8 (31.8-35.4); MEAN CORPUSCULAR VOLUME 92.2 fl (80.0-94.0); MONOCYTES # (AUTO) 1.1 K/uL (0.4-2.0); NEUTROPHILS # (AUTO) 10.1 K/ul (2.0-6.9); NEUTROPHILS % (AUTO) 77.1 % (42.2-75.2); PLATELET COUNT 225 10^3/uL (140-440); RDW COEFFICIENT OF VARIATION 13.7 % (11.6-14.8); RED BLOOD COUNT 4.61 10^6/ul (4.70-6.10); WHITE BLOOD COUNT 13.07 K/ul (4.2-10.2)
[2023-04-20 23:42] LABS: ALANINE AMINOTRANSFERASE 22.8 U/L (0-50); ALBUMIN 3.83 g/dL (3.5-5.0); ALKALINE PHOSPHATASE 158.3 U/L (56-119); ASPARTATE AMINO TRANSFERASE 33.3 U/L (17-59); BILIRUBIN,TOTAL 0.99 mg/dL (0.2-1.3); BLOOD UREA NITROGEN 5.4 mg/dL (9-20); CALCIUM 8.37 mg/dL (8.4-10.2); CARBON DIOXIDE 27.3 mmol/L (22-30.0); CHLORIDE 83.7 mmol/L (98-107); CREATININE 0.6 mg/dL (0.60-1.10); GLUCOSE 77.5 mg/dL (74-106); SODIUM 121.5 mmol/L (134.5-145); TOTAL PROTEIN 6.59 g/dL (6.3-8.2)
[2023-04-20 23:45] LABS: POTASSIUM 2.52 mmol/L (3.5-5.1)
[2023-04-20 23:51] LABS: SARS COV-2 RNA RAPID NAAT NEGATIVE (NEGATIVE)
[2023-04-21] MEDS ORDERED: ATROPINE SULFATE PFS IVP PRN (00:20)
[2023-04-21] MEDS ORDERED: DEXTROSE 50%-WATER ABBOJECT IVP PRN (00:20)
[2023-04-21] MEDS ORDERED: NITROSTAT SL PRN (00:20)
[2023-04-21] MEDS ORDERED: MAG-OX PO ONE (00:21)
[2023-04-21] MEDS ORDERED: K-DUR PO STA (00:21)
[2023-04-21] MEDS: SODIUM CHLORIDE 0.9%-KCL 40MEQ 1,000 ML IV SCH ×4 (00:35→21:14)
[2023-04-21 00:39] LABS: CREATINE KINASE 50.5 U/L (55-170)
[2023-04-21 00:52] LABS: TROPONIN I 0.029 ng/ml (0.0000-0.120)
--- NOTE | 2023-04-21 01:27 | DI ---
EXAM: PA AND LATERAL CHEST. HISTORY: Cough. FINDINGS: The bones are unremarkable. There are multiple sternotomy wires. The cardiac silhouette i s enlarged. The pulmonary vasculature is within normal limits. There is minimal bibasilar atelectas is and/or pneumonia. Impression: Bibasilar atelectasis and/or pneumonia. Cardiomegaly.
[2023-04-21 01:49] VITALS: BMI 28.0
[2023-04-21] MEDS: PERCOCET 5-325 PO PRN ×3 (02:57→20:32)
[2023-04-21 03:07] LABS: BILIRUBIN,URINE Negative (NEGATIVE); CLARITY,URINE Clear (CLEAR); COLOR,URINE Yellow (YELLOW); GLUCOSE, URINE (UA) Negative (NEGATIVE); KETONES,URINE Negative (NEGATIVE); LEUKOCYTE ESTERASE ,URINE Negative (NEGATIVE); NITRITE,URINE Negative (NEGATIVE); PH,URINE 6.5 (5-9); PROTEIN,URINE Negative (NEGATIVE); URINE, BLOOD Trace-intact (NEGATIVE); UROBILINOGEN,URINE 0.2 (0.2)
[2023-04-21 03:08] LABS: SQUAMOUS EPITHELIAL CELL,UR NOT PRESENT (0-5)
[2023-04-21 03:14] LABS: URINE RBC, MICROSCOPIC 0-2 (0-2)
[2023-04-21 05:29] LABS: BASOPHILS # (AUTO) 0.1 K/uL (0-0.2); BASOPHILS % (AUTO) 0.5 % (0.0-3.0); EOSINOPHILS # (AUTO) 0.1 K/ul (0.0-0.7); EOSINOPHILS % (AUTO) 0.8 % (0.0-7.0); HEMATOCRIT 42.9 % (42.0-52.0); IMMATURE GRANULOCYTE # (AUTO) 0.2 (0.0-1.0); IMMATURE GRANULOCYTE % (AUTO) 1.5 % (0.0-5.0); LYMPHOCYTES # (AUTO) 1.7 K/uL (0.60-3.4); LYMPHOCYTES % (AUTO) 15.3 (10.0-50.0); MEAN CORPUSCULAR HEMOGLOBIN 32.9 pg (27.0-31.0); MEAN CORPUSCULAR VOLUME 94.1 fl (80.0-94.0); MONOCYTES % (AUTO) 9.4 (0-10); NEUTROPHILS % (AUTO) 72.5 % (42.2-75.2); PLATELET COUNT 217 10^3/uL (140-440); RDW COEFFICIENT OF VARIATION 13.9 % (11.6-14.8); RED BLOOD COUNT 4.56 10^6/ul (4.70-6.10); WHITE BLOOD COUNT 11.01 K/ul (4.2-10.2)
[2023-04-21 05:40] LABS: ALANINE AMINOTRANSFERASE 22.3 U/L (0-50); ALBUMIN 3.73 g/dL (3.5-5.0); ALKALINE PHOSPHATASE 150.1 U/L (56-119); ASPARTATE AMINO TRANSFERASE 31.9 U/L (17-59); BILIRUBIN,TOTAL 1.04 mg/dL (0.2-1.3); BLOOD UREA NITROGEN 6.4 mg/dL (9-20); CALCIUM 8.29 mg/dL (8.4-10.2); CARBON DIOXIDE 33.3 mmol/L (22-30.0); CHLORIDE 87.8 mmol/L (98-107); CREATININE 0.59 mg/dL (0.60-1.10); POTASSIUM 3.11 mmol/L (3.5-5.1); SODIUM 124.3 mmol/L (134.5-145); TOTAL PROTEIN 6.57 g/dL (6.3-8.2)
[2023-04-21] MEDS ORDERED: K-DUR PO ONE ×2 (05:46→11:23)
[2023-04-21] MEDS ORDERED: PROTONIX PO SCH (06:00)
[2023-04-21] MEDS: SYNTHROID PO SCH (06:02)
[2023-04-21] MEDS ORDERED: LASIX TAB PO SCH (06:30)
[2023-04-21] MEDS: ZYLOPRIM PO SCH (08:26)
[2023-04-21] MEDS: ULTRAM PO PRN ×2 (08:27→15:22)
[2023-04-21] MEDS: LYRICA PO SCH ×2 (08:28→20:16)
[2023-04-21] MEDS: LIPITOR PO SCH (08:28)
[2023-04-21] MEDS: PLAVIX PO SCH (08:28)
[2023-04-21] MEDS: LEXAPRO PO SCH (08:28)
[2023-04-21] MEDS: NORVASC PO SCH (08:29)
[2023-04-21 08:43] LABS: CREATINE KINASE 47.8 U/L (55-170)
[2023-04-21 08:56] LABS: TROPONIN I 0.026 ng/ml (0.0000-0.120)
[2023-04-21] MEDS: LIDODERM 5 % PATCH TP SCH (12:32)
[2023-04-21] MEDS: MORPHINE 4 MG/ML SYRINGE IVP PRN ×2 (12:34→19:23)
[2023-04-21] MEDS: NICODERM 21 MG TD SCH (13:40)
--- NOTE | 2023-04-21 14:00 | HP ---
DATE OF SERVICE: 04/20/23 REASON FOR HOSPITALIZATION: Back pain, moderate to severe along with weakness, confusion. HISTORY OF PRESENT ILLNESS: 72 year old white male came to the emergency room mainly because he was having severe back pain rated as 8-9 on scale of 1-10. The patient has history of mild T12 compression fracture. According to him [facility] nearly 2 1/2 weeks when he had fallen x-ray had showed T4-T5 compression fracture with right humerus lower end fracture for which he was seen at [facility] after a couple of days and they have decided to treat him conservatively. The patient was given a sling but he has refused to wear the sling. The right humerus had nondisplaced fracture at the lower end. According to the patient he has been feeling extremely weak, fatigue and at times he finds himself being somewhat confused. The patient's electrolytes that were done in the emergency room showed sodium of 121 and potassium of 2.5. The patient was hospitalized, electrolyte imbalance and also history of fall with back pain. The patient has history of CVA with left hemiparesis, history of compression fracture T12, sacral insufficiency fracture, coronary artery disease. PAST MEDICAL HISTORY/PAST SURGICAL HISTORY: History of hernia surgery Left knee replacement Prostatectomy Coronary bypass surgery History of CVA Alcohol abuse Encephalomalacia Chronic leg edema Lumbar radiculopathy Cervical radiculopathy with severe DJD of cervical spine History of compression fracture Hypotension Dyslipidemia Smoking Chronic lung disease REVIEW OF SYSTEMS: CONSTITUTIONAL: No night sweats. Weakness and fatigue. No fever or chills. HEENT: Eyes: No visual changes. No eye pain. No eye discharge. ENT: No runny nose. No epistaxis. No sinus pain. No sore throat. No odynophagia. No ear pain. No congestion. RESPIRATORY: No cough, no congestion. No hemoptysis. No shortness of breath. CARDIOVASCULAR: No angina symptoms. No CHF symptoms. No atypical chest pain for CAD. No palpitations. No PND. No orthopnea. GASTROINTESTINAL: No abdominal pain. No nausea or vomiting. No diarrhea or constipation. No hematemesis. No hematochezia. No problems swallowing. GENITOURINARY: No urgency. No frequency. No dysuria. No hematuria. No obstructive symptoms. No discharge. No pain. No significant abnormal bleeding. MUSCULOSKELETAL: No musculoskeletal pain. No joint swelling. No arthritis. Inability to walk, needs help to walk. Severe back pain on 1-10 scale; 8-9. Right arm pain on the lower end. NEUROLOGICAL: No headache. No neck pain. No syncope. No seizures. No dizziness. Confusion at times, he recognizes it. PSYCHIATRIC: Not anxious. No depression. No suicidal thoughts. No homicidal thoughts. SKIN: No rash. No lesions. No wounds. ENDOCRINE: No unexplained weight loss. No weight gain. HEMATOLOGIC/LYMPHATIC: No anemia. No purpura. No petechiae. No prolonged or excessive bleeding. No palpable lymph nodes. PERSONAL/FAMILY/SOCIAL HISTORY: The patient is , lives by himself. Smokes cigars and regular cigarettes. History of alcohol abuse. 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 Intelligent. MEDICATIONS: Lasix Potassium Percocet Levothyroxine Gabapentin Pantoprazole Metoprolol Sodium Chloride tablets Allopurinol Lexapro PHYSICAL EXAMINATION: GENERAL: The patient is oriented to time, place and person. Seems to be slow to answer the question. VITAL SIGNS: Temperature 98, pulse 77, respiratory rate 20, blood pressure 146/85 and pulse ox 94% on room. HEENT: Head normocephalic, atraumatic. Eyes: Extraocular muscles are intact. Pupils are equal, round and reactive to light and accommodation. Ears: No lesions. Nose appeared normal. Throat: No exudate or erythema. NECK: Supple. No JVD, no carotid bruit. No lymphadenopathy or thyromegaly. LUNGS: Decreased breath sounds but good air entry. Clear to auscultation. Percussion note normal. Chest symmetrical. HEART: S1, S2, no S3. No murmur. No cyanosis or clubbing. No ascites. Pulses: Dorsalis pedis and posterior tibial pulses +1 bilaterally. ABDOMEN: Soft. Nontender. Bowel sounds active. No CVA tenderness. No mass felt. EXTREMITIES: Trace edema. Full range of motion of all extremities, equal. Right upper extremity decreased movement at the elbow but able to move the shoulder. Spine practically nontender except for questionable tenderness at T4- T5 level and T12. NEUROLOGIC: No focal deficit. Cranial nerves II through XII are grossly intact. No headache, no double vision or headache. SKIN: Dry. Intact. Turgor - normal. LYMPHATIC: No palpable lymph nodes/no lymphedema. MUSCULOSKELETAL: Normal joints with no swelling. Muscle tone is normal. ASSESSMENT: 1. Severe back pain with history of compression fractures 2. Right upper extremity pain with history of right humurus fractures 3. Electrolyte imbalance with severe hypokalemia and hyponatremia 4. Coronary bypass surgery with history of coronary artery disease 5. History of CVA 6. History of alcohol abuse 7. Chronic lung disease 8. Hypertension 9. 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 The patient is weak and confused at times according to him forgetful, somewhat drowsy. The patient's Potassium is 2.5 with severe hypokalemia seems to be symptomatic with it. Also has hyponatremia with some confusion. Sodium of 121. The patient is in moderate pain, level 8 on scale of 1-10. 1. Admit the patient for pain control.Morphine worked very well so we will give him Morphine 2mg IV BID PRN PLAN: 1. We will continue Percocet as before 2. IV Normal saline with Potassium supplements 3. Oral Potassium supplements 4. Telemetry to rule out any arrhythmias with Hypokalemia 5. EKG sinus rhythm with RBV same as before 6. Continue to monitor telemetry and electrolytes 7. Counseling and smoking and alcohol done 8. Fluid to 1600cc. TIME SPENT: More than 75 minutes. MTDD
--- NOTE | 2023-04-21 14:08 | PN ---
DATE OF SERVICE: 04/21/23 SUBJECTIVE: 72 year old white male hospitalized with severe electrolyte imbalance and severe pain. The patient is saying the pain is more or less controlled but he is requiring still Morphine Sulfate shots. It was explained that he can not go home more medication as an outpatient. He wanted to go home and sign out, I discussed with him and he has reluctant agreed to stay in the hospital. The patient's sodium has come up from 121 to 124 and Potassium from 2.5 to 3.1 but he is still weak, tired and somewhat confused at time. REVIEW OF SYSTEMS: CONSTITUTIONAL: No night sweats. No fatigue, malaise, lethargy. No fever or chills. HEENT: Eyes: No visual changes. No eye pain. No eye discharge. ENT: No runny nose. No epistaxis. No sinus pain. No sore throat. No odynophagia. No congestion. RESPIRATORY: No cough, no congestion. No hemoptysis. No shortness of breath. CARDIOVASCULAR: No angina symptoms. No CHF symptoms. No atypical chest pain for CAD. No palpitations. No PND. No orthopnea. GASTROINTESTINAL: No abdominal pain. No nausea or vomiting. No diarrhea or constipation. No hematemesis. No hematochezia. GENITOURINARY: No urgency. No frequency. No dysuria. No hematuria. No obstructive symptoms. No discharge. No pain. No significant abnormal bleeding. MUSCULOSKELETAL: No musculoskeletal pain; no joint swelling. NEUROLOGICAL: No headache. No neck pain. No syncope. No seizures. No dizziness. PSYCHIATRIC: Not anxious. No depression. No suicidal thoughts. No homicidal thoughts. SKIN: No rash. No lesions. No wounds. ENDOCRINE: No unexplained weight loss. No weight gain. HEMATOLOGIC/LYMPHATIC: No anemia. No purpura. No petechiae. No prolonged or excessive bleeding. No palpable lymph nodes. PHYSICAL EXAMINATION: VITAL SIGNS: Stable with Blood pressure 130/80, respiratory rate 15, pulse 80 per minute, oxygen saturation 94% on room air. HEENT: Head normocephalic, atraumatic. Eyes: Extraocular muscles are intact. Pupils are equal, round and reactive to light and accommodation. Ears: No lesions. Nose appeared normal. Throat: No exudate or erythema. NECK: Supple. No JVD, no carotid bruit. No lymphadenopathy or thyromegaly. LUNGS: Clear to auscultation. Percussion note normal. Chest symmetrical. HEART: S1, S2, no S3. No murmurs. No cyanosis or clubbing. No ascites. Pulses: Dorsalis pedis and posterior tibial pulses +1 to +2 bilaterally. ABDOMEN: Soft. Nontender. Bowel sounds active. No CVA tenderness. No mass felt. EXTREMITIES: No edema. Full range of motion of all extremities, equal. NEUROLOGIC: No focal deficit. Cranial nerves II through XII are grossly intact. No headache. No double vision. SKIN: Not dry. Intact. Turgor - normal. LYMPHATIC: No palpable lymph nodes/no lymphedema. MUSCULOSKELETAL: Normal joints with no swelling. Muscle tone is normal. ASSESSMENT: 1. Severe electrolyte imbalance seems to be resolving, still has the weakness. 2. Continue Hypokalemia and Hyponatremia being treated 3. Continued to have back pain somewhat better, we will continue to give Morphine Sulfate as needed PLAN: 1. We will monitor him for DT's 2. Continue telemetry, no arrhythmias, cardiovascular status seems to be stable for now CONDITION: Stable. TIME SPENT: More than 35 minutes. Plan and coordination of the patient's care discussed in the presence of nurse. BRYAN
[2023-04-21] MEDS: TYLENOL PO PRN (15:22)
[2023-04-21] MEDS ORDERED: K-DUR PO SCH (21:00)
[2023-04-21 22:51] VITALS: RESP 20
[2023-04-22] MEDS: ULTRAM PO PRN (00:17)
[2023-04-22] MEDS: TYLENOL PO PRN (00:17)
[2023-04-22] MEDS: SYNTHROID PO SCH (05:31)
[2023-04-22] MEDS: PERCOCET 5-325 PO PRN (05:31)
[2023-04-22 05:32] VITALS: BP 138/81; PULSE 69; TEMP 97.5
[2023-04-22] MEDS ORDERED: PROTONIX PO SCH (06:00)
[2023-04-22] MEDS ORDERED: LASIX TAB PO SCH (06:00)
[2023-04-22 06:01] LABS: BASOPHILS % (AUTO) 0.4 % (0.0-3.0); EOSINOPHILS # (AUTO) 0.1 K/ul (0.0-0.7); EOSINOPHILS % (AUTO) 0.8 % (0.0-7.0); HEMATOCRIT 42.6 % (42.0-52.0); HEMOGLOBIN 14.5 g/dl (14.0-18.0); IMMATURE GRANULOCYTE # (AUTO) 0.1 (0.0-1.0); IMMATURE GRANULOCYTE % (AUTO) 1.4 % (0.0-5.0); LYMPHOCYTES # (AUTO) 1.4 K/uL (0.60-3.4); LYMPHOCYTES % (AUTO) 15.3 (10.0-50.0); MEAN CORPUSCULAR HEMOGLOBIN 32.6 pg (27.0-31.0); MEAN CORPUSCULAR VOLUME 95.7 fl (80.0-94.0); MONOCYTES # (AUTO) 0.7 K/uL (0.4-2.0); MONOCYTES % (AUTO) 7.4 (0-10); NEUTROPHILS # (AUTO) 6.8 K/ul (2.0-6.9); NEUTROPHILS % (AUTO) 74.7 % (42.2-75.2); PLATELET COUNT 213 10^3/uL (140-440); RDW COEFFICIENT OF VARIATION 14.2 % (11.6-14.8); RED BLOOD COUNT 4.45 10^6/ul (4.70-6.10)
[2023-04-22 06:11] LABS: ALANINE AMINOTRANSFERASE 24.7 U/L (0-50); ALBUMIN 3.62 g/dL (3.5-5.0); ALKALINE PHOSPHATASE 144.2 U/L (56-119); ASPARTATE AMINO TRANSFERASE 37.5 U/L (17-59); BILIRUBIN,TOTAL 0.54 mg/dL (0.2-1.3); BLOOD UREA NITROGEN 6.8 mg/dL (9-20); CALCIUM 8.2 mg/dL (8.4-10.2); CHLORIDE 97.2 mmol/L (98-107); CREATININE 0.6 mg/dL (0.60-1.10); GLUCOSE 105.4 mg/dL (74-106); POTASSIUM 4.22 mmol/L (3.5-5.1); SODIUM 129.3 mmol/L (134.5-145); TOTAL PROTEIN 6.39 g/dL (6.3-8.2)
[2023-04-22 06:45] LABS: CARBON DIOXIDE 24.1 mmol/L (22-30.0)
[2023-04-22] MEDS: LEXAPRO PO SCH (08:34)
[2023-04-22] MEDS: PLAVIX PO SCH (08:34)
[2023-04-22] MEDS: NORVASC PO SCH (08:34)
[2023-04-22] MEDS: LIDODERM 5 % PATCH TP SCH (08:35)
[2023-04-22] MEDS: LIPITOR PO SCH (08:35)
[2023-04-22] MEDS: ZYLOPRIM PO SCH (08:35)
[2023-04-22] MEDS: NICODERM 21 MG TD SCH (08:35)
[2023-04-22] MEDS: LYRICA PO SCH (08:35)
[2023-04-22] MEDS: MORPHINE 4 MG/ML SYRINGE IVP PRN (08:40)
--- NOTE | 2023-04-23 08:26 | PN ---
DATE OF SERVICE: 04/22/23 DISCHARGE NOTE SUBJECTIVE: 72 year old white male hospitalized with intractable pain in the back. The patient's pain is under control. His other problems were severe hypokalemia and hyponatremia which seems to have resolved. He is upright sitting by the side of the bed, very comfortable. He says that he pain is a lot better and under control. REVIEW OF SYSTEMS: CONSTITUTIONAL: No night sweats. No fatigue, malaise, lethargy. No fever or chills. HEENT: Eyes: No visual changes. No eye pain. No eye discharge. ENT: No runny nose. No epistaxis. No sinus pain. No sore throat. No odynophagia. No congestion. RESPIRATORY: No cough, no congestion. No hemoptysis. No shortness of breath. CARDIOVASCULAR: No angina symptoms. No CHF symptoms. No atypical chest pain for CAD. No palpitations. No PND. No orthopnea. GASTROINTESTINAL: No abdominal pain. No nausea or vomiting. No diarrhea or constipation. No hematemesis. No hematochezia. Appetite seems to have improved. GENITOURINARY: No urgency. No frequency. No dysuria. No hematuria. No obstructive symptoms. No discharge. No pain. No significant abnormal bleeding. MUSCULOSKELETAL: No musculoskeletal pain; no joint swelling. Still mild pain in the back but not like what he had before. NEUROLOGICAL: No headache. No neck pain. No syncope. No seizures. No dizziness. PSYCHIATRIC: Not anxious. No depression. No suicidal thoughts. No homicidal thoughts. SKIN: No rash. No lesions. No wounds. ENDOCRINE: No unexplained weight loss. No weight gain. HEMATOLOGIC/LYMPHATIC: No anemia. No purpura. No petechiae. No prolonged or excessive bleeding. No palpable lymph nodes. PHYSICAL EXAMINATION: GENERAL: The patient is oriented to time, place and person. VITAL SIGNS: Temperature 97.5, pulse 70, respiratory rate 20, blood pressure 138/80 and pulse ox 94%. HEENT: Head normocephalic, atraumatic. Eyes: Extraocular muscles are intact. Pupils are equal, round and reactive to light and accommodation. Ears: No lesions. Nose appeared normal. Throat: No exudate or erythema. NECK: Supple. No JVD, no carotid bruit. No lymphadenopathy or thyromegaly. LUNGS: Decreased breath sounds but clear to auscultation. Percussion note normal. Chest symmetrical. HEART: S1, S2, no S3. No murmurs. No cyanosis or clubbing. No ascites. Pulses: Dorsalis pedis and posterior tibial pulses +1 to +2 bilaterally. ABDOMEN: Soft. Nontender. Bowel sounds active. No CVA tenderness. No mass felt. EXTREMITIES: No edema. Full range of motion of all extremities, equal. NEUROLOGIC: No focal deficit. Cranial nerves II through XII are grossly intact. No headache. No double vision. SKIN: Not dry. Intact. Turgor - normal. LYMPHATIC: No palpable lymph nodes/no lymphedema. MUSCULOSKELETAL: Normal joints with no swelling. Muscle tone is normal. LABS: Hgb 14, hct 42, WBC 9,100 normal differential, creatinine 0.6, BUN 7, potassium 4.2 with sodium 129.3. ASSESSMENT: 1. Intractable pain from right humerus and compression fracture, pain is better 2. Hypokalemia has resolved 3. Hyponatremia, resolving. The patient has chronic hyponatremia PLAN: 1. Discharge the patient home 2. Lidocaine patch to be given to put on the right scapular area. 3. K-Dur to be taken 20meq PO daily along with Lasix 4. Advised to continue the rest of the medications as before 5. Advised to quit smoking, counseling done 6. Advised to quit alcohol, declined any help for now. TIME SPENT: More than 35 minutes. Plan and coordination of the patient's care discussed in the presence of nurse. BRYAN
--- NOTE | 2023-04-23 08:56 | DS ---
DATE OF SERVICE: 04/22/23 FINAL DIAGNOSIS: 1. Severe hypokalemia and Hyponatremia with electrolyte imbalance 2. Intractable pain effecting the right arm and back from chronic compression fractures T7 and T12, x-rays done at [facility] and also at [facility] three weeks ago 3. Coronary bypass surgery with coronary artery disease 4. History of alcohol abuse 5. COPD with history of smoking 6. History of hypertension 7. History of CVA with encephalomalacia 8. History of C of prostate 9. Hypothyroidism 10. Mild depression 11. Dependent leg edema. DISCHARGE INSTRUCTIONS: Discharge home. Advised to continue all the medications as before. K-Dur the patient had run out of it for a while, was hypokalemia. Come back in 7 days. Counseling for smoking done. Advised to quit smoking and alcohol. MEDICATIONS AT DISCHARGE: Lasix Potassium Percocet Levothyroxine Gabapentin Pantoprazole Metoprolol Sodium Chloride tablets Allopurinol Lexapro NEW PRESCRIPTIONS: K-Dur 20meq Po daily Lidocaine patch 5% to be applied to the area where they is a pain especially upper thoracic posterior area scapula. HOSPITAL COURSE: 72 year old white male came to the emergency room especially because of pain in the back which was described as severe on a scale of 1-10 it was 9. Also had some pain on the right arm from fracture of the humerus occurred with the fall nearly 3-4 weeks. The patient was seen in the ER at [facility] and also followed by Orthopedic after 2-3 days. The Ortho MD had elected to treat him conservatively. The patient declined to wear sling which he was advised to do that. On routine workup the patient was noted to have Potassium of 2.5 on further questioning he admitted having extreme weakness and inability to walk. He was slow to respond to the questioning with some mental status changed. In any case the patient in the hospital was given Potassium supplements IV and PO with normal saline his Sodium went from 121 to 129 and Potassium 4.2 at the time of discharge which was normal. Pain was brought under control with Morphine. The patient is going to be on the same medication as before. He used to take for his pain. He was oriented to time, place and person. He was much better sitting up straight and had improved. Condition at the time of discharge, stable. There were no DT's noted. According to him his alcohol intake is much less than what is used to be. Condition at the time of discharge is stable. The patient is a full code. The patient is to see him in 5-7 days. TIME SPENT: 70 minutes MTDD
--- NOTE | 2023-04-23 08:57 | PN ---
ADMISSION DAY: LEVEL 5 REST OF THEM: Intermediate FINAL DAY: D as in discharge. MTDD
== END 2023-04-22 12:35 | disposition home or self-care (01) | DRG 552 ==
LOC: MEDSURG B 22:30 → ED 22:30 → OBSVTOIN 23:57 → MEDSURG B 04-21 00:53
PROVIDERS: ADMIT Internal Medicine; ATTEND Internal Medicine
DX: I25.810 Atherosclerosis of coronary artery bypass graft(s) without angina pectoris; S22.080A Wedge compression fracture of T11-T12 vertebra, initial encounter for closed fracture; E87.6 Hypokalemia; R60.0 Localized edema; Z86.73 Personal history of transient ischemic attack (TIA), and cerebral infarction without residual deficits; R41.0 Disorientation, unspecified; J44.9 Chronic obstructive pulmonary disease, unspecified; Z20.822 Contact with and (suspected) exposure to COVID-19; Z85.46 Personal history of malignant neoplasm of prostate; F17.290 Nicotine dependence, other tobacco product, uncomplicated; M54.50 Low back pain, unspecified; S42.301A Unspecified fracture of shaft of humerus, right arm, initial encounter for closed fracture; E87.0 Hyperosmolality and hypernatremia; R53.1 Weakness

== ENCOUNTER 2023-05-20 14:29 | Observation (INO) ==
[2023-05-20] MEDS ORDERED: ASPIRIN CHEWABLE PO STA (14:32)
[2023-05-20 14:50] LABS: BASOPHILS % (AUTO) 0.2 % (0.0-3.0); HEMATOCRIT 46.2 % (42.0-52.0); HEMOGLOBIN 15.8 g/dl (14.0-18.0); IMMATURE GRANULOCYTE # (AUTO) 0.1 (0.0-1.0); IMMATURE GRANULOCYTE % (AUTO) 0.7 % (0.0-5.0); LYMPHOCYTES # (AUTO) 1.2 K/uL (0.60-3.4); MEAN CORPUSCULAR HEMOGLOBIN 32.5 pg (27.0-31.0); MEAN CORPUSCULAR HGB CONC 34.2 (31.8-35.4); MEAN CORPUSCULAR VOLUME 95.1 fl (80.0-94.0); MONOCYTES # (AUTO) 1.5 K/uL (0.4-2.0); MONOCYTES % (AUTO) 9.4 (0-10); NEUTROPHILS # (AUTO) 12.6 K/ul (2.0-6.9); NEUTROPHILS % (AUTO) 81.7 % (42.2-75.2); PLATELET COUNT 240 10^3/uL (140-440); RDW COEFFICIENT OF VARIATION 13.6 % (11.6-14.8); RED BLOOD COUNT 4.86 10^6/ul (4.70-6.10); WHITE BLOOD COUNT 15.45 K/ul (4.2-10.2)
--- NOTE | 2023-05-20 14:52 | ED.PDOC ---
General ED Provider: Dr. JOSS STOUT MD Chief Complaint: Back Pain Stated Complaint: diarrhea, nausea, R shoulder pain 72-year-old male presents the emergency department for evaluation of diarrhea, nausea, shoulder pain. Patient has a history of chronic shoulder pain after a fall approximately 1 month ago. Was hospitalized for 2 days in [place]. Reports ongoing shoulder pain since that time but worse in the past 2 days. Has also reported in the past 2 to 3 days he has began to feel nauseated and has been experiencing daily diarrhea. Is having 3-4 episodes of watery stools. Denies any blood. States they are occasionally dark but that is normal for him. No fevers or chills. No abdominal pain. No sick contacts. Patient did take Imodium today. What ultimately made him come to the hospital was because he had an episode of diarrhea all over his house and was not able to make it to the bathroom. Time Seen by Provider: 05/20/23 14:45 Mode of Arrival: Walk-In Information Source: Patient Exam Limitations: No limitations Primary Care Provider: NICKY SALAZAR MD Nursing and Triage Documentation Reviewed and Agree: Yes GI Complaint Exam Vomiting/Diarrhea Complaint/Exam Onset/Duration: 3 days ago Symptoms Are: Still present Episodes of Vomiting over last 24 Hours: 0 Episodes of Diarrhea Over Last 24 Hours: 4 Initial Severity: Moderate Review of Systems Review Of Systems Constitutional: Reports Weakness GI: Reports Diarrhea and Nausea Musculoskeletal: Reports Back pain and Muscle pain All Other Systems: Reviewed and Negative [facility] Medical History Sacral insufficiency fracture M84.48XA - Pathological fracture, other site, initial encounter for fracture (ICD-10) Sacral fracture S32.10XA - Unspecified fracture of sacrum, initial encounter for closed fracture (ICD-10) Acute UTI N39.0 - Urinary tract infection, site not specified (ICD-10) Pleurisy R09.1 - Pleurisy (ICD-10) Non-ST elevated myocardial infarction (non-STEMI) I21.4 - Non-ST elevation (NSTEMI) myocardial infarction (ICD-10) Hypertension I10 - Essential (primary) hypertension (ICD-10) Myocardial infarction I21.3 - ST elevation (STEMI) myocardial infarction of unspecified site (ICD- 10) Family History Mother CHF (congestive heart failure) FATHER CVA (cerebral vascular accident) SISTER Hypertension Social History Smoking and tobacco status: Current some day smoker Tobacco type: cigars Smokeless tobacco user: other Alcohol intake: current Alcohol type: hard liquor Substance use type: does not use Special joyce needs: No Agree to transfusion: Yes Adopted: No Caregiver/support person: No Foster care: No Household members: other Other Household Members: girl friend Housing: house Marital status: D Lives independently: Yes Number of children: 2 Financial difficulty paying for basics: not very hard service: No long term: No Current occupational status: employed Pets and animals: No History of recent travel: Yes (in the states) Sexually active: Yes Do you think of yourself as: straight/heterosexual Current gender identity: male Seatbelt use: always Drives intoxicated or rides with intoxicated route delivery service driver: No Water heater temperature set < 120 degrees: Yes Working smoke detector in home: Yes Fire extinguisher in home: Yes Carbon monoxide detector in home: Yes Firearms in home: No Surgical History History of left knee replacement Z96.652 - Presence of left artificial knee joint (ICD-10) History of hernia surgery Z98.89 - Other specified postprocedural states (ICD-10) History of prostatectomy Z98.89 - Other specified postprocedural states (ICD-10) History of quadruple bypass Z95.1 - Presence of aortocoronary bypass graft (ICD-10) Physical Exam Physical Exam Appearance: Reports Well-appearing Ill-appearing: None Pain Distress: None Eyes: Reports EOMI ENT: Reports Oropharynx normal Neck: Supple Respiratory: Reports Airway patent and Breath sounds clear Cardiovascular: Reports RRR and Murmur (5 out of 6 systolic ejection murmur heard over entire precordium) GI/: Reports Soft, Nontender and No masses Musculoskeletal: Reports No edema and No calf tenderness Skin: Reports Warm, Dry and Normal color Neurological: Reports Cranial nerves intact, Alert and Oriented Psychiatric: Reports Affect appropriate and Mood appropriate Interpretation EKG Interpretation Time of EKG #1: 14:45 Rate: Normal Rhythm: Sinus Ectopy: None [place]: Left ST Segment: Normal Interpretation: Right bundle branch block Critical Care Note Critical Care Note Total Critical Care Time (mins): 0 Course Course 05/20/23 14:45 05/20/23 14:45 Orders, Labs, Meds: Lab Review 05/20/23 05/20/23 05/20/23 14:45 15:32 15:48 WBC 15.45 H RBC 4.86 Hgb 15.8 Hct 46.2 MCV 95.1 H MCH 32.5 H MCHC 34.2 RDW Coeff of Audrey 13.6 Plt Count 240 Immature Gran % (Auto) 0.7 Neut % (Auto) 81.7 H Lymph % (Auto) 8.0 L Putnam % (Auto) 9.4 Eos % (Auto) 0.0 Baso % (Auto) 0.2 Neut # (Auto) 12.6 H Lymph # (Auto) 1.2 Putnam # (Auto) 1.5 Eos # (Auto) 0.0 Baso # (Auto) 0.0 Immature Gran # (Auto) 0.1 Sodium 128.6 L Potassium 2.98 L Chloride 92.4 L Carbon Dioxide 26.6 Anion Gap 12.58 BUN 10.1 Creatinine 0.74 Estimated GFR (MDRD) 104.00 BUN/Creatinine Ratio 13.64 Glucose 103.7 Lactic Acid 2.95 H Calcium 7.60 L Magnesium 1.31 L Total Bilirubin 0.95 AST 32.2 ALT 24.8 Alkaline Phosphatase 88.9 Troponin I 0.037 Total Protein 7.32 Albumin 4.16 Globulin 3.16 Albumin/Globulin Ratio 1.31 Lipase 16.0 L Procalcitonin < 0.05 Urine Color Chambers Urine Clarity Clear Urine pH 6.5 Ur Specific Hendricks 1.010 Urine Protein 2+ H Urine Glucose (UA) Negative Urine Ketones Negative Urine Blood 1+ H Urine Nitrite Negative Urine Bilirubin Negative Urine Urobilinogen 1.0 H Ur Leukocyte Esterase Negative Urine Microscopic RBC 2-5 Ur Squamous Epith Cells Not Reportable Orders Category Date Time Status [facility] PAT[facility] ADMISSION 05/20/23 16:11 Active EKG-(ED ONLY) Stat CARDIO 05/20/23 14:32 Completed ACTIVITY .Up With Assistance CARE 05/20/23 16:13 Active NPO REMINDER: IMAGING ONCE CARE 05/20/23 15:01 Completed TELEMETRY MONITORING TELE CARE 05/20/23 16:12 Active VITAL SIGNS Q12HR CARE 05/20/23 16:13 Active CARDIAC DIET DIETARY 05/20/23 Dinner Ordered ED IV/MEDIPORT/POWERPORT .ONCE EMERGENCY 05/20/23 14:32 Active CBC W/ AUTO DIFF DAILY@0600 LAB 05/21/23 06:00 Ordered CBC W/ AUTO DIFF DAILY@0600 LAB 05/22/23 06:00 Ordered CBC W/ AUTO DIFF Stat LAB 05/20/23 14:45 Completed CMP [COMPREHENSIVE METABOLIC PANEL] Stat LAB 05/20/23 14:45 Completed COMPREHENSIVE METABOLIC PANEL DAILY@0600 LAB 05/21/23 06:00 Ordered COMPREHENSIVE METABOLIC PANEL DAILY@0600 LAB 05/22/23 06:00 Ordered LACTIC ACID Stat LAB 05/20/23 14:45 Completed LIPASE Stat LAB 05/20/23 14:45 Completed MAGNESIUM Stat LAB 05/20/23 15:32 Completed PROCALCITONIN Stat LAB 05/20/23 14:45 Completed TROPONIN I Stat LAB 05/20/23 14:45 Completed UA [URINALYSIS C & S IF INDICATED] Stat LAB 05/20/23 15:48 Completed 0.9 % Sodium Chloride [Saline Flush] Meds 05/20/23 14:32 Active 1 syr IVF PRN PRN Aspirin [Aspirin Chewable] Meds 05/20/23 14:32 Discontinued 324 mg PO ONCE STA Chlordiazepoxide HCl [Librium] Meds 05/20/23 16:30 Ordered 10 mg PO Q6H Ondansetron HCl/Pf [Zofran 4 mg/2 ml] Meds 05/20/23 15:04 Discontinued 4 mg IVP ONCE ONE Oxycodone-Acetaminophen 5-325 [Percocet 5-325] Meds 05/20/23 15:38 Discontinued 1 tab PO ONCE ONE Potassium Chloride [K-Dur] Meds 05/20/23 16:30 Ordered 40 meq PO BID Sodium Chloride 0.9% [Sodium Chloride] 1,000 ml Meds 05/20/23 15:10 Discontinued IV BOLUS RESUSCITATION STATUS Routine OTHERS 05/20/23 16:13 Ordered CHEST, 2 VIEWS PA & LAT Stat RADS 05/20/23 14:[address] ABDOMEN/PELVIS W CONTRAST Stat RADS 05/20/23 15:01 Completed PT INPATIENT EVALUATION Routine THERAPIES 05/20/23 16:13 Ordered Medications Generic Name Dose Route Start Last Admin Trade Name Freq PRN Reason Stop Dose Admin Chlordiazepoxide HCl 10 mg 05/20/23 16:30 Chlordiazepoxide Hcl 10 Mg Capsule PO Q6H AMANDA Potassium Chloride 40 meq 05/20/23 16:30 Potassium Chloride 20 Meq Tab PO BID AMANDA Sodium Chloride 1 syr 05/20/23 14:32 05/20/23 15:34 0.9% Sodium Chloride 10 Ml Disp.Syrin IVF 1 syr PRN PRN Administration To flush IV Discontinued Medications Generic Name Dose Route Start Last Admin Trade Name Freq PRN Reason Stop Dose Admin Aspirin 324 mg 05/20/23 14:32 05/20/23 14:43 Aspirin 81 Mg Tab.Chew PO 05/20/23 14:33 324 mg ONCE STA Administration Sodium Chloride 1,000 mls @ 1,000 mls/hr 05/20/23 15:10 05/20/23 15:34 Sodium Chloride IV 05/20/23 16:09 1,000 mls/hr BOLUS STA Administration Ondansetron HCl 4 mg 05/20/23 15:04 05/20/23 15:34 Ondansetron Hcl/Pf 4 Mg/2 Ml Sdv IVP 05/20/23 15:05 4 mg ONCE ONE Administration Oxycodone/Acetaminophen 1 tab 05/20/23 15:38 05/20/23 15:44 Oxycodone/Acetaminophen 5/325 Mg Tablet PO 05/20/23 15:39 1 tab ONCE ONE Administration Vital Signs: Temp Pulse Resp BP Pulse Ox 05/20/23 14:34 98.8 F 88 18 145/84 H 98 Discharge Plan Discharge Patient Disposition: ADMITTED INPATIENT Discharge Problem: Gastroenteritis, Hyponatremia, Hypokalemia, Acidosis, lactic, Hypomagnesemia Prescriptions: No Action pantoprazole [Protonix] 40 mg tablet,delayed release (DR/EC) 40 mg PO DAILY Qty: 90 1RF levothyroxine [Synthroid] 50 mcg tablet 50 mcg PO DAILY Qty: 90 1RF amlodipine 5 mg tablet 5 mg PO QDAY Qty: 90 1RF atorvastatin 20 mg tablet 20 mg PO DAILY Qty: 90 1RF tramadol 50 mg tablet 50 mg PO TID PRN (Reason: pain) Qty: 45 1RF oxycodone-acetaminophen 5-325 mg tablet 1 tab PO TID PRN (Reason: pain) Qty: 90 0RF escitalopram oxalate 10 mg tablet See Rx Instructions .ROUTE .COMPLEX Qty: 90 1RF Dose Instruction: TAKE 1 TABLET BY MOUTH EVERY DAY Rx Instructions: TAKE 1 TABLET BY MOUTH EVERY DAY ondansetron 4 mg tablet,disintegrating 4 mg PO Q8H PRN (Reason: nausea and vomiting) Qty: 30 0RF potassium 20 mg tablet,chewable See Rx Instructions PO DAILYWM Patient Comments: Patients states he needs a refill Rx Instructions: 20 MEQ DAILY WITH MEALS multivitamin Tablet 1 tab PO DAILY clopidogrel 75 mg tablet 75 mg PO QDAY Did you review [place] [employer] for ALL controlled substances?: Not Applicable ED Provider: JOSS STOUT Physician Progress Note: []
[2023-05-20 15:04] LABS: ALANINE AMINOTRANSFERASE 24.8 U/L (0-50); ALBUMIN 4.16 g/dL (3.5-5.0); ALKALINE PHOSPHATASE 88.9 U/L (56-119); ASPARTATE AMINO TRANSFERASE 32.2 U/L (17-59); BILIRUBIN,TOTAL 0.95 mg/dL (0.2-1.3); BLOOD UREA NITROGEN 10.1 mg/dL (9-20); CALCIUM 7.6 mg/dL (8.4-10.2); CARBON DIOXIDE 26.6 mmol/L (22-30.0); CHLORIDE 92.4 mmol/L (98-107); CREATININE 0.74 mg/dL (0.60-1.10); GLUCOSE 103.7 mg/dL (74-106); POTASSIUM 2.98 mmol/L (3.5-5.1); SODIUM 128.6 mmol/L (134.5-145); TOTAL PROTEIN 7.32 g/dL (6.3-8.2)
[2023-05-20] MEDS ORDERED: ZOFRAN 4 MG/2 ML IVP ONE (15:04)
[2023-05-20] MEDS ORDERED: SODIUM CHLORIDE 1,000 ML IV STA ×2 (15:10→17:27)
[2023-05-20 15:15] LABS: TROPONIN I 0.037 ng/ml (0.0000-0.120)
[2023-05-20] MEDS ORDERED: PERCOCET 5-325 PO ONE (15:38)
[2023-05-20 15:58] LABS: BILIRUBIN,URINE Negative (NEGATIVE); CLARITY,URINE Clear (CLEAR); COLOR,URINE Orange (YELLOW); GLUCOSE, URINE (UA) Negative (NEGATIVE); KETONES,URINE Negative (NEGATIVE); LEUKOCYTE ESTERASE ,URINE Negative (NEGATIVE); NITRITE,URINE Negative (NEGATIVE); PH,URINE 6.5 (5-9); PROTEIN,URINE 2+ (NEGATIVE); URINE, BLOOD 1+ (NEGATIVE)
--- NOTE | 2023-05-20 16:01 | DI ---
EXAM: CHEST TWO VIEW, FRONTAL AND LATERAL VIEWS. HISTORY: Cough. COMPARISON: 04/21/2023, 02/03/2023. FINDINGS: The heart size is normal. CABG hardware noted. Atherosclerotic calcifications present. There is no pulmonary vascular congestion. Subtle reticular opacities lateral right mid lung. Other serna, the lungs are clear. No pleural effusion or pneumothorax is seen. No acute osseous abnormalit y identified. Degenerative changes in the spine and shoulders. Endovascular stent graft in the abdo neida aorta noted. IMPRESSION: Question of right mid lung pneumonia. Follow-up recommended.
--- NOTE | 2023-05-20 16:04 | CT ---
EXAM: CT ABDOMEN AND PELVIS WITH CONTRAST HISTORY: Diarrhea and abdominal pain TECHNIQUE: CT acquisition of the abdomen and pelvis from the lower thorax through the pelvis followin g IV contrast administration. 2-D coronal and sagittal reformatted images were obtained from the axi al source images. CT Dose Reduction Techniques Performed: Yes. COMPARISON: None. FINDINGS: Lower Thorax: Within normal limits. Liver: No mass. Normal morphology. There is hepatic steatosis. Biliary: The gallbladder and bile ducts are normal. Pancreas: No mass or evidence of pancreatitis. No duct dilation. Spleen: No mass. No splenomegaly. Adrenals: No mass. Kidneys/Ureters: No renal mass. No calculus or hydronephrosis. There is bilateral renal cortical scar ring. GI Tract: No bowel dilation. No bowel wall thickening. There is colonic diverticulosis. Peritoneal Cavity: No ascites. No free air. Retroperitoneum: No mass or fluid collection. Lymph Nodes: No lymphadenopathy. Vasculature: Aorta is atherosclerotic. There is a distal aorta bifemoral endoluminal stent graft. T he graft lumens are patent. No obvious endoleak however noncontrast images were not obtained. 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 Pelvis: There has been hysterectomy. Bladder is normal. Bones/Soft Tissues: No fracture or lytic lesion. There is grade 1 anterolisthesis of L5 on S1. Visua lized abdominal wall soft tissues are unremarkable. IMPRESSION: 1. Diverticulosis. No evidence of diverticulitis or an acute inflammatory process. 2. Aortobi-iliac endoluminal stent graft. The graft lumen is patent. 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 Evaluation of endoleak not possible on this exam. 3. Hepatic steatosis. All CT scans are performed using dose optimization techniques as appropriate to the performed exam an d include at least one of the following: Automated exposure control, adjustment of the mA and/or kV according t o size, and the use of iterative reconstruction technique.
[2023-05-20] MEDS ORDERED: LIBRIUM PO SCH (16:30)
[2023-05-20] MEDS ORDERED: MAGNESIUM SULFATE 1 GM/2 ML VIAL IVP ONE (16:45)
[2023-05-20] MEDS ORDERED: MAGNESIUM SULF 2 G/50 ML BAG 2 GM/50 ML PIGGYBACK IV ONE (16:57)
[2023-05-20 17:00] LABS: SARS COV-2 RNA RAPID NAAT NEGATIVE (NEGATIVE)
[2023-05-20] MEDS: K-DUR PO SCH ×2 (17:29→21:05)
[2023-05-20 18:37] VITALS: BMI 33.6
[2023-05-20] MEDS ORDERED: ULTRAM PO PRN (19:37)
[2023-05-20] MEDS: LIBRIUM PO SCH (21:05)
[2023-05-20] MEDS: PERCOCET 5-325 PO PRN (21:07)
[2023-05-21 02:26] VITALS: RESP 18
[2023-05-21] MEDS: SODIUM CHLORIDE 1,000 ML IV SCH ×2 (03:16→12:10)
[2023-05-21 05:42] LABS: BASOPHILS % (AUTO) 0.3 % (0.0-3.0); EOSINOPHILS # (AUTO) 0.2 K/ul (0.0-0.7); EOSINOPHILS % (AUTO) 1.6 % (0.0-7.0); HEMATOCRIT 39.5 % (42.0-52.0); HEMOGLOBIN 13.2 g/dl (14.0-18.0); IMMATURE GRANULOCYTE # (AUTO) 0.1 (0.0-1.0); IMMATURE GRANULOCYTE % (AUTO) 0.9 % (0.0-5.0); LYMPHOCYTES # (AUTO) 1.3 K/uL (0.60-3.4); LYMPHOCYTES % (AUTO) 12.7 (10.0-50.0); MEAN CORPUSCULAR HEMOGLOBIN 32.8 pg (27.0-31.0); MEAN CORPUSCULAR HGB CONC 33.4 (31.8-35.4); MEAN CORPUSCULAR VOLUME 98.3 fl (80.0-94.0); MONOCYTES # (AUTO) 0.9 K/uL (0.4-2.0); MONOCYTES % (AUTO) 8.6 (0-10); NEUTROPHILS # (AUTO) 7.6 K/ul (2.0-6.9); NEUTROPHILS % (AUTO) 75.9 % (42.2-75.2); PLATELET COUNT 199 10^3/uL (140-440); RDW COEFFICIENT OF VARIATION 13.8 % (11.6-14.8); RED BLOOD COUNT 4.02 10^6/ul (4.70-6.10); WHITE BLOOD COUNT 10.05 K/ul (4.2-10.2)
[2023-05-21 05:56] LABS: ALANINE AMINOTRANSFERASE 22.2 U/L (0-50); ALBUMIN 3.28 g/dL (3.5-5.0); ALKALINE PHOSPHATASE 89.7 U/L (56-119); ASPARTATE AMINO TRANSFERASE 35.6 U/L (17-59); BILIRUBIN,TOTAL 0.6 mg/dL (0.2-1.3); CALCIUM 6.53 mg/dL (8.4-10.2); CARBON DIOXIDE 26.4 mmol/L (22-30.0); CHLORIDE 98.4 mmol/L (98-107); CREATININE 0.58 mg/dL (0.60-1.10); POTASSIUM 3.65 mmol/L (3.5-5.1); SODIUM 129.2 mmol/L (134.5-145); TOTAL PROTEIN 6.15 g/dL (6.3-8.2)
[2023-05-21] MEDS ORDERED: SYNTHROID PO SCH (06:00)
[2023-05-21] MEDS ORDERED: PROTONIX PO SCH ×2 (09:00→17:00)
[2023-05-21] MEDS ORDERED: K-DUR PO SCH (09:00)
[2023-05-21] MEDS ORDERED: NORVASC PO SCH (09:00)
[2023-05-21] MEDS ORDERED: PLAVIX PO SCH (09:00)
[2023-05-21] MEDS ORDERED: LEXAPRO PO SCH (09:00)
[2023-05-21] MEDS ORDERED: NICODERM 21 MG TD SCH (09:00)
[2023-05-21] MEDS ORDERED: LIPITOR PO SCH (09:00)
[2023-05-21] MEDS: K-DUR PO SCH (09:10)
[2023-05-21] MEDS: LIBRIUM PO SCH (09:10)
[2023-05-21 09:41] VITALS: BP 125/74; PULSE 90; TEMP 97.8
[2023-05-21] MEDS ORDERED: ZOFRAN 4 MG/2 ML IVP PRN (10:50)
[2023-05-21] MEDS: PERCOCET 5-325 PO PRN (11:06)
--- NOTE | 2023-05-24 14:44 | SSS ---
DATE OF SERVICE: 05/21/23 REASON FOR ADMISSION: Acute gastroenteritis HISTORY OF PRESENT ILLNESS: 72 year old white male went to the emergency room with diarrhea, nausea and of course he has continuous back pain as usual. Nothing unusual according to him. Shoulder was something that was new in a way. Diarrhea was like 3-4 times, water stool, vomited one time before coming to the emergency room with duration 2-3 days. There is some question about this withdraw because according to the operations officer the patient had stopped drinking 3-4 days ago. REVIEW OF SYSTEMS: CONSTITUTIONAL: No night sweats. Weakness and fatigue. No fever or chills. HEENT: Eyes: No visual changes. No eye pain. No eye discharge. ENT: No runny nose. No epistaxis. No sinus pain. No sore throat. No odynophagia. No ear pain. No congestion. RESPIRATORY: Mild cough, no congestion. No hemoptysis. No shortness of breath. CARDIOVASCULAR: No angina symptoms. No CHF symptoms. No atypical chest pain for CAD. No palpitations. No orthopnea. GASTROINTESTINAL: No abdominal pain. Nausea with vomiting once. Diarrhea stool, 3-4. No hematemesis. No hematochezia. GENITOURINARY: No dysuria. No hematuria. No obstructive symptoms. No discharge. No pain. No significant abnormal bleeding. MUSCULOSKELETAL: No musculoskeletal pain. No joint swelling. Generalized aches and pain especially involving the lower back and the neck. Right shoulder pain which is mild. NEUROLOGICAL: Awake, alert, oriented to time, place and person. No headache. No neck pain. No syncope. No seizures. No dizziness. PSYCHIATRIC: Not anxious. No depression. No suicidal thoughts. No homicidal thoughts. SKIN: No rash. No lesions. No wounds. ENDOCRINE: No unexplained weight loss. No weight gain. HEMATOLOGIC/LYMPHATIC: No anemia. No purpura. No petechiae. No prolonged or excessive bleeding. No palpable lymph nodes. PAST HISTORY: Multiple medical surgical problems Recall Radiculopathy Severe DJD involving atlantoaxial joint Severe lumbar radiculopathy with DJD of the spine History of CVA History of alcohol abuse History of smoking History of alcoholic hepatitis Peripheral arterial disease Bypass surgery Coronary artery disease History of [place] Dyslipidemia Hypertension PERSONAL/FAMILY HISTORY/SOCIAL HISTORY: The patient is singles, lives with himself with help of friends. Smokes cigars. History of alcohol abuse but now says that he drinks beer once in a while. Able to do all activity of daily living. Intelligent. PHYSICAL EXAMINATION: GENERAL: The patient is oriented to time, place and person. VITAL SIGNS: Temperature 97.8, pulse 90, Respiratory rate 18, blood pressure 125/74 and pulse ox 96%. HEENT: Head normocephalic, atraumatic. Eyes: Extraocular muscles are intact. Pupils are equal, round and reactive to light and accommodation. Ears: No lesions. Nose appeared normal. Throat: No exudate or erythema. NECK: Supple. No JVD, no carotid bruit. No lymphadenopathy or thyromegaly. LUNGS: Decreased breath sounds but clear with mild wheeze. Percussion note normal. Chest symmetrical. HEART: S1, S2, no S3. Grade I/ systolic murmurs. No cyanosis or clubbing. No ascites. Pulses: Dorsalis pedis and posterior tibial pulses +1 bilaterally. ABDOMEN: Soft. Nontender. Bowel sounds active. No CVA tenderness. No mass felt. EXTREMITIES: No edema. Full range of motion of all extremities, equal. NEUROLOGIC: No focal deficit. Cranial nerves II through XII are grossly intact. No headache, no double vision or headache. SKIN: Dry. Intact. Turgor - normal. LYMPHATIC: No palpable lymph nodes/no lymphedema. MUSCULOSKELETAL: Normal joints with no swelling. Muscle tone is normal. MEDICATIONS: Pantoprazole Clopidogrel Levothyroxine Amlodipine Atorvastatin Potassium Tramadol Oxycodone Lexapro LABS/EKG'S/X-RAY/ECHO/ABG: Hgb 15.8, hct 46, WBC 15,000 normal differential, creatinine 0.7, BUN 10. Protein 2+ in the urine, 1+ blood in the urine, Leukocyte esterase negative. Sodium 128.6, potassium 2.98, magnesium low. PROGRESS NOTES: The patient was treated with IV fluids and symptomatically with Zofran. No DT's or withdraws noted. He swears that he has been having a couple of beers maybe once or twice a day. He is oriented to time, place and person and wants to go home. He is going to be discharged home and advised to continue the same medication as before. No change. Cardiovascular status is stable. Gastroenteritis seems to have resolved. DIAGNOSES: 1. Acute gastroenteritis with hypokalemia 2. Hyponatremia 3. Hypomagnesium 4. Coronary artery disease with coronary bypass surgery 5. 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 Possibility of alcohol withdraw 7. Hypertension 8. Dyslipidemia 9. Coronary bypass surgery RECOMMENDATIONS/PLAN: 1. Observe the patient 2. Telemetry 3. Potassium supplements 4. Magnesium supplements 5. Fluids FINAL DIAGNOSIS: 1. Acute gastroenteritis with hypokalemia/hyponatremia/hypomagnesium all corrected LABS: WBC down to 10,000 which is normal, hgb is 13, potassium 3.6 this morning. TIME SPENT: More than 70 minutes. MTDD
== END 2023-05-21 13:20 | disposition home or self-care (01) ==
LOC: ED 14:29 → INTOOBSV 17:27 → MEDSURG B 17:27
PROVIDERS: ADMIT Internal Medicine; ATTEND Internal Medicine
DX: Z95.1 Presence of aortocoronary bypass graft; I10 Essential (primary) hypertension; K57.90 Diverticulosis of intestine, part unspecified, without perforation or abscess without bleeding; E83.42 Hypomagnesemia; K76.0 Fatty (change of) liver, not elsewhere classified; I25.810 Atherosclerosis of coronary artery bypass graft(s) without angina pectoris; M54.9 Dorsalgia, unspecified; M51.36 Other intervertebral disc degeneration, lumbar region; M50.30 Other cervical disc degeneration, unspecified cervical region; K52.9 Noninfective gastroenteritis and colitis, unspecified; E78.5 Hyperlipidemia, unspecified; E87.6 Hypokalemia; M25.511 Pain in right shoulder; R91.8 Other nonspecific abnormal finding of lung field; F17.290 Nicotine dependence, other tobacco product, uncomplicated; E87.20 Acidosis, unspecified; E87.1 Hypo-osmolality and hyponatremia; G89.29 Other chronic pain